=== PATIENT | female | born 1935 | race Caucasian/White ===

== ENCOUNTER → 2016-08-09 | Outpatient (CLI) | payer BC ==
[~2016-08-09] MED LIST: ASCA500 PO; ASPI81TA28 PO; CALCTAB5 PO; DOCU-94 PO; FMR25 PO; GLC500 PO; HYDR-5688 PO; LIRA18IN SC; MULT-506 PO; OMEP40CA41 PO; SIMV20TA2 PO; VSC/10 PO; ZOLP5TAB6 PO; oxybutynin PO
--- NOTE | 2016-08-09 14:29 | DIAGNOSTIC IMAGING REPORT ---
LEFT FOREARM 2 VIEWS ROUTINE CLINICAL HISTORY: M25.532 Wrist pain, acute, left pain COMPARISON: None. DISCUSSION: Evidence for nondisplaced fracture distal radius. All remaining osseous structures show mild degenerative change but otherwise unremarkable. There is no evidence for soft tissue swelling. IMPRESSION: Nondisplaced linear fracture distal radius. Electronically signed by: Braulio Barrow M.D. 08/09/2016 2:28 PM Dictated Date/Time: 08/09/2016 2:27 PM
--- NOTE | 2016-08-09 14:41 | DIAGNOSTIC IMAGING REPORT ---
LEFT WRIST MIN 3 VIEWS ROUTINE CLINICAL HISTORY: Left wrist pain following fall. COMPARISON: None FINDINGS: There is a mildly displaced comminuted distal left radial fracture with intra-articular extension. No additional fractures are identified on this exam. There is severe osteoarthritis of the left first carpometacarpal joint with extensive osteophytosis. IMPRESSION: Comminuted, mildly displaced distal left radial fracture with intra-articular extension. Electronically signed by: Jimi Joseph M.D. 08/09/2016 2:40 PM Dictated Date/Time: 08/09/2016 2:36 PM
== END | disposition home or self-care (01) ==
LOC: C.RAD1850 14:11
PROVIDERS: ATTEND Physician Assistant
DX: S52.502A Unspecified fracture of the lower end of left radius, initial encounter for closed fracture (principal); X58.XXXA Exposure to other specified factors, initial encounter

== ENCOUNTER → 2016-08-26 | Outpatient (CLI) | payer BC ==
[2016-08-26 09:45] LABS: BASO % 0.6 %; BASO ABS # 0.04 K/uL (0-0.2); COMPLETE YES; EOS % 2.7 %; HEMATOCRIT 37.7 % (37-47); IG% 0.3 %; LYMPH % 15.7 %; LYMPH ABS # 1.04 K/uL (1.2-3.4); MEAN CELL VOLUME 91.7 fL (80-100); MEAN CORPUSCULAR HEMOGLOBIN 31.1 pg (25-34); MONO % 8.4 %; NEUT % 72.3 %; PLATELET COUNT 227 K/uL (130-400); RED BLOOD COUNT 4.11 M/uL (4.2-5.4); WHITE BLOOD COUNT 6.64 K/uL (4.8-10.8)
[2016-08-26 10:08] LABS: ESTIMATED AVERAGE GLUCOSE 131 mg/dl; HA1C FLAG Normal (Normal)
[2016-08-26 10:13] LABS: ALB/GLOB RATIO 1.1 (0.9-2); ALKALINE PHOSPHATASE 96 U/L (45-117); ALT/SGPT 33 U/L (12-78); AST/SGOT 30 U/L (15-37); BLOOD UREA NITROGEN 11 mg/dl (7-18); BUN/CREATININE RATIO 12.7 (10-20); CALCIUM 8.8 mg/dl (8.5-10.1); CARBON DIOXIDE 28 mmol/L (21-32); CHLORIDE 105 mmol/L (98-107); CREATININE 0.89 mg/dl (0.60-1.20); GLUCOSE 97 mg/dl (70-99); POTASSIUM 4.1 mmol/L (3.5-5.1); SODIUM 139 mmol/L (136-145)
== END | disposition home or self-care (01) ==
LOC: C.LAB 07:14
PROVIDERS: ATTEND Internal Medicine
DX: E11.9 Type 2 diabetes mellitus without complications (principal); I10 Essential (primary) hypertension; E78.5 Hyperlipidemia, unspecified; C50.919 Malignant neoplasm of unspecified site of unspecified female breast

== ENCOUNTER → 2016-09-13 | Outpatient (CLI) | payer BC | END | disposition home or self-care (01) | LOC: C.PAPS 16:21 | PROVIDERS: ATTEND Obstetrics & Gynecology | DX: Z01.419 Encounter for gynecological examination (general) (routine) without abnormal findings (principal) ==

== ENCOUNTER → 2016-10-08 | Outpatient (CLI) | payer BC | END | disposition home or self-care (01) | LOC: C.CTS 08:03 | PROVIDERS: ATTEND Orthopaedic Surgery | DX: S46.011A Strain of muscle(s) and tendon(s) of the rotator cuff of right shoulder, initial encounter (principal); X58.XXXA Exposure to other specified factors, initial encounter ==

== ENCOUNTER 2016-11-05 07:44 | Inpatient (IN) | payer BC, OTHER ==
--- NOTE | 2016-10-08 09:09 | PAT Medication Instructions ---
Service Date Oct 08, 2016. Current Home Medication List Aspirin (Aspirin Ec), 81 MG PO 4XWK Calcium (Caltrate), 600 MG PO QAM Docusate Sodium (Colace), 1 CAP PO HS Letrozole (Femara), 2.5 MG PO HS Metformin HCl (Metformin HCl), 1 TAB PO BID Multivitamin (Multivitamin), 1 TAB PO QAM Simvastatin (Zocor), 10 MG PO QPM Zolpidem Tartrate (Zolpidem Tartrate), 1 TAB PO HS PRN for Insomnia [oxybutynin], 5 MG PO BID Medication Instructions For Your Scheduled Surgery - Hold the following medications 48 hours prior to surgery: Metformin HCl (Metformin HCl), 1 TAB PO BID - Hold the following medications the morning of surgery: Calcium (Caltrate), 600 MG PO QAM Multivitamin (Multivitamin), 1 TAB PO QAM - Take the following medications the morning of surgery with a sip of water OTHERWISE NOTHING TO EAT OR DRINK AFTER MIDNIGHT: [oxybutynin], 5 MG PO BID - Take the following medications as scheduled the night before surgery: [oxybutynin], 5 MG PO BID Docusate Sodium (Colace), 1 CAP PO HS Letrozole (Femara), 2.5 MG PO HS Simvastatin (Zocor), 10 MG PO QPM Aspirin (Aspirin Ec), 81 MG PO 4XWK Zolpidem Tartrate (Zolpidem Tartrate), 1 TAB PO HS PRN for Insomnia If you have any questions please call us at [phone] or [phone] or [phone]
[2016-10-08 09:51] LABS: BASO % 1.3 %; BASO ABS # 0.06 K/uL (0-0.2); COMPLETE YES; EOS % 3.6 %; HEMATOCRIT 38.6 % (37-47); IG% 0.2 %; LYMPH ABS # 1.09 K/uL (1.2-3.4); MEAN CELL VOLUME 92.3 fL (80-100); MEAN CORPUSCULAR HEMOGLOBIN 31.1 pg (25-34); MEAN CORPUSCULAR HGB CONC 33.7 g/dl (32-36); MEAN PLATELET VOLUME 9.5 fL (7.4-10.4); MONO % 12.4 %; NEUT % 59.5 %; PLATELET COUNT 210 K/uL (130-400); RED BLOOD COUNT 4.18 M/uL (4.2-5.4); WHITE BLOOD COUNT 4.74 K/uL (4.8-10.8)
[2016-10-08 09:55] LABS: URINE APPEARANCE CLEAR (CLEAR); URINE BILIRUBIN NEG (NEG); URINE COLOR YELLOW; URINE NITRITE NEG (NEG); URINE PH 7.5 (4.5-7.5); URINE SPECIFIC GRAVITY 1.016 (1.000-1.030); UROBILINOGEN NEG (NEG)
[2016-10-08 10:04] LABS: PROTHROMBIN TIME (PATIENT) 10.4 SECONDS (9.0-12.0)
[2016-10-08 10:11] LABS: MANUAL MICROSCOPIC REQUIRED? NO; REVIEW REQ? NO
--- NOTE | 2016-10-08 10:14 | DIAGNOSTIC IMAGING REPORT ---
CHEST PREADMISSION(PA/LAT) CLINICAL HISTORY: PAT preoperative evaluation COMPARISON STUDY: No previous studies for comparison. FINDINGS: The bones soft tissues and hemidiaphragms are normal. The cardiomediastinal silhouette is normal. The lungs are clear. The pulmonary vasculature is normal. IMPRESSION: Negative chest. Electronically signed by: Braulio Barrow M.D. 10/08/2016 10:13 AM Dictated Date/Time: 10/08/2016 9:58 AM
[2016-10-08 10:38] LABS: BUN/CREATININE RATIO 16.1 (10-20); CALCIUM 10.1 mg/dl (8.5-10.1); POTASSIUM 4.5 mmol/L (3.5-5.1)
--- NOTE | 2016-11-04 15:32 | HISTORY & PHYSICAL EXAMINATION ---
DATE OF ADMISSION: 10/08/2016 CHIEF COMPLAINT: Rotator cuff arthropathy of the right shoulder. HISTORY OF PRESENT ILLNESS: Lorne is a pleasant 81-year-old female who has been dealing with chronic right shoulder pain. She has been having pain for the past several years. Recently, she sustained a fall where her shoulders feel that it got much worse. She now have been used her left arm more often and she needs to use her left arm to elevate her right arm. She is at the point where she is having hard time sleeping at night and doing simple daily activities. After deep discussions in our office about conservative treatment versus arthroplasty, her and her family wanted to proceed with arthroplasty. PAST MEDICAL HISTORY: Significant for non-insulin dependent diabetes, breast cancer and diverticulitis and tachycardia. MEDICATIONS: Include aspirin 81 mg daily, Caltrate 600 mg daily, Colace 100 mg at night, Femara 2.5 mg at night, metformin 500 mg twice a day, daily multivitamin, Zocor 10 mg daily, and Ambien as needed for sleep and oxybutynin 5 mg twice a day. PAST SURGICAL HISTORY: Significant for a left total knee arthroplasty, lumbar surgery, bilateral breast surgery, splenectomy and tonsillectomy. ALLERGIES: OXYCONTIN AND ULTRAM. FAMILY HISTORY: Noncontributory. SOCIAL HISTORY: She is . She rarely drinks. She remains active. REVIEW OF SYSTEMS: She complains of right shoulder pain and weakness. All other pertinent review of systems is negative. PHYSICAL EXAMINATION: GENERAL: She is awake, alert and oriented x3. She is in no apparent distress. She is very pleasant. HEENT: Pupils are equal, round and reactive to light. Extraocular motion intact. Oral mucosa is pink and moist. HEART: Regular rate per radial pulse. LUNGS: Marlee symmetrically bilaterally with no audible breath sounds. ABDOMEN: Soft, nontender, nondistended. MUSCULOSKELETAL: On physical examination of the shoulder, she has decreased range of motion about 120 degrees of forward elevation and 100 degrees of abduction. She has 4/5 muscle strength with full can testing and 4/5 muscle strength with external rotation. She has a lot of crepitus through range of motion. Passively, I can get her slightly further than her active range of motion. She has a negative belly press test. IMAGING DATA: X-rays of the shoulder do show slightly superiorly migrated humeral head with advanced wear of the glenoid. There is joint space narrowing and osteophyte formation. IMPRESSION: Rotator cuff arthropathy of the right shoulder. PLAN: Given her level of arthritis and the deformity of her glenoid along with her suspicion for possible rotator cuff tear, she has elected to proceed with a reverse right shoulder arthroplasty. She understands all the risks, benefits, alternatives to the procedure. She has already had her Biomet CT scan for the signature system. We will proceed with a comprehensive total shoulder arthroplasty and postoperatively, she will be kept overnight for postoperative medical management.
[~2016-11-05] VITALS: Ht 152.4 cm; Wt 70.1 kg
[2016-11-05] VITALS (13 sets, daily range): BP systolic 123–173; BP diastolic 70–82; PULSE 52–81; TEMP 34.2–36.5; O2SAT 93–99; Ht 152.4 cm; Wt 70.1 kg
[2016-11-05] MEDS: TRANEXAMIC ACID INJ 1,000 MG in SODIUM CHLORIDE 0.9% 100ML 100 ML IV SCH ×2 (06:30→08:16)
--- NOTE | 2016-11-05 06:44 | History & Physical Bridge Note ---
H&P Re-Evaluation Bridge Note: I have examined the patient, reviewed the History & Physical and in the interval since the performance of the History & Physical I have noted the following changes of clinical significance: No changes noted
[~2016-11-05 07:44] MED LIST changes: +ACETAMINOPHEN 500 MG TAB PO SCH; -ASCA500 PO; +CEFAZOLIN 2000 MG/60 ML D5W 60 ML IV SCH; +DEXAMETHASONE SOD INJ 4 MG/ML VIAL ONE; +FAMOTIDINE 20 MG TAB PO SCH; +FENTANYL CITRATE INJ 50 MCG/1 ML 2 ML VIAL ONE; +GABAPENTIN 300 MG CAP PO SCH; +GLYCOPYRROLATE INJ 0.2 MG/ML VIAL ONE; -HYDR-5688 PO; +LACTATED RINGER'S 1000ML 1,000 ML IV SCH; +LACTATED RINGER'S 1000ML IV SCH; +LIDOCAINE HCL 2% 2 ML VIAL (20MG/ML) ONE; -LIRA18IN SC; +MIDAZOLAM HCL 1 MG/ML 2ML VIAL ONE; +NEOSTIGMINE METHYLSULFATE 5 MG/5 ML SYR ONE; -OMEP40CA41 PO; +ONDANSETRON INJ 2 MG/ML 2 ML VIAL ONE; +PROPOFOL IV EMULSION 10 MG/ML 20 ML VIAL IV ONE; +ROCURONIUM BROMIDE 10 MG/ML 5 ML VIAL ONE; +ROPIVACAINE 5MG/ML 30 ML 150 MG, BUPIVACAINE/EPINEPHR 0.5% MPF 30 ML, KETOROLAC TROMETH... INFIL SCH; -VSC/10 PO
[2016-11-05] MEDS ORDERED: ATROPINE SULFATE 0.1 MG/ML 5ML SYR IV PRN (08:15)
[2016-11-05] MEDS ORDERED: SCOPOLAMINE 1.5 MG TDSY TD ONE ×2 (08:15→08:17)
[2016-11-05] MEDS ORDERED: HYDROmorphone INJ 1 MG/ML SYR IV PRN (08:15)
[2016-11-05] MEDS ORDERED: ONDANSETRON INJ 2 MG/ML 2 ML VIAL IV PRN ×2 (08:15→11:45)
[2016-11-05] MEDS ORDERED: EpHEDrine SULFATE INJ 50 MG/ML AMP IV PRN (08:15)
[2016-11-05] MEDS ORDERED: FENTANYL CITRATE INJ 50 MCG/1 ML 2 ML VIAL IV PRN (08:15)
[2016-11-05] MEDS ORDERED: ROPIVACAINE 0.5% 5 MG/ML 30 ML VIAL ONE (08:27)
[2016-11-05] MEDS ORDERED: BACITRACIN 50000 UNIT VIAL ONE (09:38)
[2016-11-05] MEDS ORDERED: ORTHO JOINT ANESTHETIC ONE (09:38)
[2016-11-05] MEDS ORDERED: EpHEDrine SULFATE 50MG/5ML SYR ONE (10:14)
[2016-11-05] MEDS ORDERED: PHENYLEPHRINE 100MCG/ML 5ML SYR ONE (10:14)
[2016-11-05] MEDS ORDERED: PHENYLEPHRINE HCL INJ 10 MG/ML VIAL ONE (10:14)
--- NOTE | 2016-11-05 11:42 | [facility] Post Operative Brief Note ---
Immediate Operative Summary Operative Date Nov 05, 2016. Pre-Operative Diagnosis Rotator cuff arthropathy of the right shoulder Post-Operative Diagnosis Rotator cuff arthropathy of the right shoulder Procedure(s) Performed Right reverse total shoulder Surgeon Dr. Henderson Medical Interpreter Surgeon(s) Farzad Blue PA-C Estimated Blood Loss 350CC Findings as above Specimens A. Right humeral head Complication(s) None Disposition Recovery Room / PACU
[2016-11-05] MEDS ORDERED: MAGNESIUM HYDROXIDE SUSP 30 ML UDC PO PRN (11:45)
[2016-11-05] MEDS ORDERED: MoRPHine SULFATE 2 MG/ML CARP IV PRN (11:45)
[2016-11-05] MEDS ORDERED: HYDROCODONE/ACETAMOPHEN 5/325MG TAB PO PRN (11:45)
[2016-11-05] MEDS ORDERED: SOD PHOSPHATE/SOD BIPHOSPHATE ENEMA 132 ML BTL PR PRN (11:45)
[2016-11-05] MEDS ORDERED: BISACODYL 10 MG SUPP PR PRN (11:45)
[2016-11-05] MEDS ORDERED: METOCLOPRAMIDE HCL INJ 5 MG/ML 2 ML VIAL IV PRN (11:45)
[2016-11-05] MEDS ORDERED: ZOLPIDEM TARTRATE 5 MG TAB PO PRN (11:45)
[2016-11-05] MEDS ORDERED: KETOROLAC TROMETHAMINE 30 MG/ML VIAL IV. SCH (12:00)
--- NOTE | 2016-11-05 12:27 | DIAGNOSTIC IMAGING REPORT ---
RIGHT SHOULDER MIN 2 VIEWS ROUTINE CLINICAL HISTORY: Status post right shoulder surgery. COMPARISON: Right shoulder radiographs October 06, [address] of the right shoulder October 08, 2016. FINDINGS: Alignment of the right shoulder arthroplasty is anatomic. There is a surgical drain. There is no fracture or unexpected radiopaque foreign body. IMPRESSION: Expected findings following right shoulder arthroplasty. Electronically signed by: Jimi Joseph M.D. 11/05/2016 12:26 PM Dictated Date/Time: 11/05/2016 12:25 PM
--- NOTE | 2016-11-05 12:30 | Anesthesiology Progress Note ---
Anesthesia Post Op Note Date & Time Nov 05, 2016 at 12:30 Vital Signs Pain Intensity: 0 Vital Signs Past 12 Hours Date Time Temp Pulse Resp B/P (MAP) Pulse Ox O2 Delivery O2 Flow Rate FiO2 11/05/16 12:20 36.4 86 18 134/66 95 Nasal Cannula 2 11/05/16 12:10 86 16 143/68 96 Mask 10 11/05/16 12:00 90 18 139/64 97 Mask 10 11/05/16 11:50 36.2 97 14 144/68 99 Mask 10 11/05/16 09:15 55 16 144/61 (88) 100 Mask 10 11/05/16 09:04 51 16 144/61 (88) 99 Mask 10 11/05/16 06:52 36.4 55 20 173/75 97 Room Air Notes Mental Status: alert / awake / arousable, participated in evaluation Pt Amnestic to Procedure: Yes Nausea / Vomiting: adequately controlled Pain: adequately controlled Airway Patency, RR, SpO2: stable & adequate BP & HR: stable & adequate Hydration State: stable & adequate Anesthetic Complications: no major complications apparent
[2016-11-05] MEDS ORDERED: GLUCOSE 40% GEL 15 GM TUBE PO PRN (13:30)
[2016-11-05] MEDS ORDERED: GLUCAGON FOR INJ 1 MG VIAL SQ PRN (13:30)
[2016-11-05] MEDS ORDERED: GLUCOSE 10 TABS/TUBE PO PRN (13:30)
[2016-11-05] MEDS ORDERED: DEXTROSE 50% 50 ML SYR IV PRN (13:30)
[2016-11-05] MEDS ORDERED: PHARMACY GLYCEMIC MGMT CONSULT PRN (13:43)
[2016-11-05] MEDS: POTASSIUM CHLORIDE INJ 10 MEQ in SODIUM CHLORIDE 0.9% 1000ML 1,000 ML IV SCH ×2 (13:52→23:51)
--- NOTE | 2016-11-05 13:54 | Pharmacy Progress Note ---
Glycemic Control Intl Consult Date of Service Nov 05, 2016. Scope Glycemic Pharmacist consulted by Dr Henderson on 11/05/16 for glycemic control and to write orders per [facility] inpatient glycemic control protocol Objective Weight (Kilograms): 70.100 Accuchecks BSG (last 24hrs): Test 11/05/16 07:27 11/05/16 11:56 Bedside Glucose 118 mg/dl (70-90) 145 mg/dl (70-90) HbA1c 6.2% on 08/26/16 Recent Pertinent Medications Outpatient Anti-diabetic Regimen: * Metformin 500mg PO BIDM Risk Factors for Insulin Resistance: * Steroids pre/intraop * Recent Surgery * Diet Assessment & Plan ASSESSMENT: * 81yo T2DM female with adequate outpatient control per recent A1c 6.2% on * Pt is maintained on oral antidiabetic agents as an outpatient * Oral agents are not recommended for inpatient use d/t drug interactions, changing PO intake, and difficulty titrating for acute hyper/hypoglycemia. ADA recommends re-initiating outpatient oral agents 1-2 days prior to discharge if/ when appropriate if they were held on admission. * Will hold oral agents for admission and utilize SQ basal bolus insulin regimen which is the recommended regimen for inpatient glycemic control. * Will initiate weight based insulin dosing for insulin valentino patient and titrate based on BSG trends. * Basal insulin most likely not needed based on degree of outpatient control * ADA & AACE recommend a goal blood sugar range 140-180 mg/dl for the majority of critically ill & non-critically ill patients. However, more stringent targets may be selected in individual cases. Will utilize more stringent goal of 110-140mg/dl based on patient age & comorbidities. Additionally, tighter glycemic control is warranted to facilitate wound/infection healing. PLAN FOR INPATIENT GLYCEMIC CONTROL: * Holding outpatient oral diabetes medications * Resume {metformin 500mg PO BIDM} POD#1 with dinner provided PO intake is adequate and renal function at baseline * Basal insulin * None needed. Will start low dose for persistent hyperglycemia {BSG > 180} * Bolus insulin * NovoLog per scale ACHS or Q6hrs while NPO * Goal Range: Low 110 mg/dL - High 140 mg/dL * Correction Factor: 35 mg/dL/unit * Nutritional / Prandial insulin per carb ratio of 1 unit per 11 grams CHO consumed * D/C carb ratio when metformin is started 11/06 PM * Please note that the plan above was derived based on current level of insulin resistance and hospital stress. These recommendations are appropriate for inpatient admission only. Plan of care upon discharge will need to be reassessed to avoid potential outpatient hypo/hyperglycemia. Thank you.
--- NOTE | 2016-11-05 16:27 | OPERATIVE REPORT ---
DATE OF OPERATION: 11/05/2016 PREOPERATIVE DIAGNOSIS: Rotator cuff arthropathy of the right shoulder. POSTOPERATIVE DIAGNOSIS: Same. PROCEDURE: Reverse right total shoulder arthroplasty. SURGEON: Dr. Farzad Henderson. JEWEL BLOCKER AND SAWYER: Farzad Davila PA-C, whose assistance was necessary for positioning of the arm and helping with instrumentation. ANESTHESIA: General with a right interscalene nerve block. COMPLICATIONS: None. CONDITION: Stable to PACU. IMPLANTS USED: I used a Biomet comprehensive reverse right total shoulder arthroplasty with a size 25-mm mini baseplate, a 20-mm central screw, a 20-mm superior locking screw and a 35-mm inferior and posterior locking screw with a 36-mm standard eccentric glenosphere, a 12-mm pressfit mini stem, a standard humeral tray and a +3 retentive humeral bearing. No cement was used during the case. INDICATIONS: Lorne is a pleasant 81-year-old female who presented to my office with chronic right shoulder pain. X-rays and clinical examination were diagnostic for osteoarthritis of the right shoulder. She had very poor function of her rotator cuff as well and had sustained a recent fall. She elected to undergo a reverse right shoulder arthroplasty. DESCRIPTION OF PROCEDURE: On 11/05/2016, she arrived at [facility] for the above procedure. She was seen in the preoperative holding area and the operative extremity was identified and signed. She was given a preoperative antibiotic and a right interscalene nerve block. She was taken back to the operating room, laid on the table in supine position and put under general anesthesia. She was then put into the beachchair position. The right shoulder was prepped and draped in the sterile fashion. Time-out was done and the patient and operative extremity was properly identified. A deltopectoral approach was used. Dissection was taken down through the fascia and the anterior shoulder was exposed. The long head of the biceps tendon was tenodesed to the upper border of the pec major and the subscapularis was tenotomized off the lesser tuberosity. The proximal humerus was exposed. Sequential reaming up to a size 12 reamer was done. Off that reamer, a proximal humeral resection guide was placed and the proximal humerus was resected at 135 degrees of inclination and 20 degrees of retroversion. The glenoid was then exposed. Time was spent doing a complete circumferential capsular and labral release. There was significant posterior glenoid erosion. A Biomet signature guide was then snapped on to the anterior aspect of the glenoid and a guide pin was placed in reverse shoulder arthroplasty hole. A 25-mm mini base plate reamer was then used to eccentrically ream the glenoid. The final 25-mm base plate was then impacted into place. A 20-mm central screw was placed. I did not get an excellent purchase. A single superior, inferior and posterior locking screws were then placed. A 36-mm eccentric glenosphere was then impacted into place. The proximal humerus was then exposed. Sequential broaching up to a size 12 broach was done. Off that broach, several different humeral bearings were trialed and a +3 retentive seemed to be the best fit. The trials were removed. The final humeral stem was impacted into place followed by the +3 retentive humeral bearing and standard humeral tray. The shoulder was reduced, brought through a full range of motion and felt to be stable. The surrounding soft tissues were injected with 100 mL of an orthopedic pain control cocktail. The wound was then irrigated with 3 liters of normal saline solution with bacitracin. The subscapularis was tenodesed back to the lesser tuberosity with transosseous FiberWire sutures and [id number] sutures. Hemostasis was controlled and a drain was placed. The skin was then closed with 2-0 Vicryl, 3-0 V-Loc suture and a Prineo dressing. She was then placed in a soft dressing and regular arm sling. She was then extubated, transferred [facility] and taken to the postanesthesia care unit in stable condition. She tolerated the procedure well. I attest to the content of the Intraoperative Record and any orders documented therein. Any exception s are noted below.
[2016-11-05] MEDS: KETOROLAC TROMETHAMINE 15 MG/ML VIAL IV. SCH ×2 (17:00→22:41)
[2016-11-05] MEDS: CEFAZOLIN IV 1,000 MG in DEXTROSE 5% 50ML 50 ML IV SCH (18:17)
[2016-11-05] MEDS: INSULIN ASPART 100 UNITS/ML 3 ML PEN SC SCH ×2 (19:26→20:56)
[2016-11-05] MEDS: OXYBUTYNIN CHLORIDE 5 MG TAB PO SCH (20:42)
[2016-11-05] MEDS ORDERED: SIMVASTATIN 10 MG TAB PO SCH (21:00)
[2016-11-05] MEDS ORDERED: LETROZOLE 2.5 MG TAB PO SCH (21:00)
[2016-11-05] MEDS ORDERED: DOCUSATE SODIUM 100 MG CAP PO SCH ×2 (21:00)
[2016-11-05] MEDS ORDERED: SENNA 8.6 MG TAB PO SCH (21:00)
[2016-11-06] MEDS: CEFAZOLIN IV 1,000 MG in DEXTROSE 5% 50ML 50 ML IV SCH (01:46)
[2016-11-06 03:56] VITALS: BP 136/74; PULSE 60; TEMP 36.6; O2SAT 94
[2016-11-06] MEDS: KETOROLAC TROMETHAMINE 15 MG/ML VIAL IV. SCH ×2 (04:32→10:43)
[2016-11-06 06:28] LABS: HEMATOCRIT 30.6 % (37-47); MEAN CELL VOLUME 91.6 fL (80-100); MEAN CORPUSCULAR HEMOGLOBIN 30.2 pg (25-34); MEAN PLATELET VOLUME 9.5 fL (7.4-10.4); PLATELET COUNT 160 K/uL (130-400); RED BLOOD COUNT 3.34 M/uL (4.2-5.4); WHITE BLOOD COUNT 11.11 K/uL (4.8-10.8)
[2016-11-06 07:02] VITALS: BP 126/60; PULSE 57; TEMP 36.6; O2SAT 95
[2016-11-06 07:06] LABS: CALCIUM 8.3 mg/dl (8.5-10.1); CREATININE 0.87 mg/dl (0.60-1.20); POTASSIUM 4.4 mmol/L (3.5-5.1)
[2016-11-06] MEDS: INSULIN ASPART 100 UNITS/ML 3 ML PEN SC SCH (08:00)
[2016-11-06] MEDS ORDERED: MULTIVITAMIN TAB PO SCH ×2 (09:00)
[2016-11-06] MEDS ORDERED: CALCIUM CARBONATE 1250MG TAB PO SCH (09:00)
[2016-11-06] MEDS ORDERED: PANTOprazole SOD 40 MG TAB PO SCH (09:00)
[2016-11-06] MEDS ORDERED: ASPIRIN 81 MG ECTAB PO SCH (09:00)
[2016-11-06] MEDS ORDERED: HYDR-5688 PO (09:05)
--- NOTE | 2016-11-06 09:06 | Discharge Instructions ---
Discharge Instructions Date of Service Nov 06, 2016. 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 Instructions / Follow-Up Instructions / Follow-Up Activity and Therapy Recommendations: * Wear your sling for 3 weeks, unless otherwise instructed. You may remove your sling to shower and to dress, but otherwise, you should be in your sling at all times, including while sleeping * The shoulder replacement is very stable and you can use your hand while in the sling * Physical Therapy should start about 3-5 days from your day of surgery. Therapy will last about 8-12 weeks * You were shown a series of exercises in the hospital. Do these exercises daily including the exercises you were shown in physical therapy. Medications: * Narcotic You will likely be sent home from the hospital with a prescription for the narcotic pain medication that worked best throughout your stay. * Other medications may be prescribed for specific circumstances. If you have any questions, please call the office at . * Resume previous home medications unless otherwise instructed Dressing Care: You will likely have a Prineo dressing covering your incision. This looks like a glued on clear mesh dressing. Do not remove this dressing until you follow- up in my office in 2-3 weeks. Its pretty hard to peel it off. You may leave the Prineo dressing uncovered or cover it if it is draining a little bit. No further dressing care is required Showering: You may shower 3 days from the day of surgery. Leave the Prineo dressing intact and let the soapy shower water run over it. Do not scrub or soak the dressing or the incision. Things To Watch For: * Drainage from the incision site that occurs more than one week after your surgery. * Increased redness at the incision site. * Fever above 102 degrees Fahrenheit. * Unusual chest pain or shortness of breath. * Call [facility] at with any of the above problems Follow-Up Visit: Follow-up with Dr. Henderson 2-3 weeks after your day of surgery. An appointment was probably scheduled when you signed-up for surgery in the office. If you have any questions call Office Instructions: More detailed instructions as well as Frequently Asked Questions were provided in a folder by our office when you signed-up for surgery. Please review these instructions when you get home. If you have any further questions or concerns, please feel free to call the office at [phone] Current Hospital Diet Patient's current hospital diet: Diabetes Type 2 Diet Discharge Diet Recommended Diet: Diabetes Type 2 Diet Procedures Procedures Performed: Right reverse total shoulder Pending Studies Studies pending at discharge: no Laboratory Results Hemoglobin A1c Test 08/26/16 07:40 Range/Units Estimated Average Glucose 131 mg/dl Hemoglobin A1c 6.2 H 4.5-5.6 % Medical Emergencies . Who to Call and When: Medical Emergencies: If at any time you feel your situation is an emergency, please call 911 immediately. . Non-Emergent Contact Non-Emergency issues call your: Surgeon Call Non-Emergent contact if: wound has increased drainage, wound has increased redness . "Provider Documentation" section prepared by Farzad Henderson. . VTE Core Measure Inpt VTE Proph given/why not?: Treatment not indicated
[2016-11-06] MEDS: OXYBUTYNIN CHLORIDE 5 MG TAB PO SCH (09:14)
[2016-11-06] MEDS: POTASSIUM CHLORIDE INJ 10 MEQ in SODIUM CHLORIDE 0.9% 1000ML 1,000 ML IV SCH (09:17)
--- NOTE | 2016-11-06 09:32 | PROGRESS NOTE ---
DATE: 11/06/2016 DATE: 11/06/2016 CHIEF COMPLAINT: Status post right reverse shoulder arthroplasty postop day #1. HISTORY OF PRESENT ILLNESS: Lorne is a pleasant 81-year-old female who underwent a reverse right shoulder arthroplasty yesterday. She is having very little pain today. Unfortunately, she is having inability to extend her wrist and her fingers. The block seems to have fully worn off. She has no other complaints. PHYSICAL EXAMINATION: RIGHT SHOULDER: The dressing is clean and dry and the drain is to suction. She is wearing her sling as instructed. She has inability to extend her wrist and inability to extend her fingers on the right side. It appears to be a radial nerve palsy. LABORATORY DATA: Show an H&H of 10.1 and 30.6. Her glucose is 81. Her vital signs are all stable on room air and she is voiding on her own. X-rays postoperatively of the right shoulder show the prosthesis to be in anatomic alignment without any evidence of fracture, dislocation or loosening. IMPRESSION: 1. Status post reverse right shoulder arthroplasty postop day #1. 2. Radial nerve palsy. PLAN: My biggest concern is certainly the radial nerve palsy. I explained to her that everything went fine with the procedure, that the radial nerve is simply stretched from the retractors. These palsies are usually transient and her motion should return; however, I am unsure if it will return within days or if it is going to take months. She understands that. I am going to order her a cock-up wrist splint and I talked to the therapist as well. We will go ahead and discharge her to home. She can continue physical therapy on her shoulder.
--- NOTE | 2016-11-06 10:08 | DISCHARGE SUMMARY ---
DATE OF DISCHARGE: 11/06/2016. DISCHARGE DIAGNOSIS: Rotator cuff arthropathy of the right shoulder with postoperative radial nerve palsy. PROCEDURE: Reverse right total shoulder arthroplasty on 11/05/[address] Farzad Henderson. DISCHARGE INSTRUCTIONS: 1. [place] 5/325 every 6 hours as needed for pain. 2. Aspirin 81 mg daily. 3. Caltrate 600 mg in the morning. 4. Colace 100 mg daily. 5. Femara 2.5 mg at night. 6. Metformin 500 mg twice a day. 7. Zocor 10 mg daily. 8. Ambien 5 mg at night. 9. Oxybutynin 5 mg twice a day. 10. Right arm sling for 3 weeks. 11. Right wrist splint as needed for radial nerve palsy. 12. Follow up with Dr. Henderson in 2 weeks. 13. Call the office of Dr. Henderson with any questions or concerns. HOSPITAL COURSE: Lorne is a pleasant 81-year-old female who presented to my office with chronic right shoulder pain. X-rays and clinical examination were diagnostic for primary osteoarthritis of the right shoulder with insufficient rotator cuff. After failing conservative treatment, she elected to undergo a reverse right shoulder arthroplasty. On 11/05/2016 she arrived at [facility] and underwent a reverse right shoulder arthroplasty without complications. There were no complications during the case; however, due to retractor placement she developed a postoperative radial nerve palsy. On postop day #1, her pain was well controlled. Her H&H was stable at 10.1 and 30.6. She was able to participate well with physical therapy. We gave her cock-up wrist splint to her right wrist and explained to her that these nerve palsies are usually transient and it will take either days or months to go away. I will follow her closely in the office. She was stable for discharge to home.
[2016-11-06 10:56] VITALS: BP 126/60; PULSE 57; TEMP 36.6; O2SAT 95
[2016-11-06] MEDS ORDERED: INSULIN ASPART 100 UNITS/ML 3 ML PEN SC SCH (17:15)
[2016-11-06] MEDS ORDERED: METFORMIN HCL 500 MG TAB PO SCH (17:45)
== END 2016-11-06 11:59 | disposition home or self-care (01) | DRG 483 ==
LOC: C.ACU 07:44 → C.3E 11:47 → ENRESERV 12:28
PROVIDERS: ADMIT Orthopaedic Surgery; ATTEND Orthopaedic Surgery
PROC: 0RRJ00Z Replacement of Right Shoulder Joint with Reverse Ball and Socket Synthetic Substitute, Open Approach (ICD-10-PCS; principal; 2016-11-05 09:30)
DX: M19.011 Primary osteoarthritis, right shoulder (principal); M96.89 Other intraoperative and postprocedural complications and disorders of the musculoskeletal system; G56.31 Lesion of radial nerve, right upper limb; Y81.3 Surgical instruments, materials and general- and plastic-surgery devices (including sutures) associated with adverse incidents; Y83.8 Other surgical procedures as the cause of abnormal reaction of the patient, or of later complication, without mention of misadventure at the time of the procedure; Y92.234 Operating room of hospital as the place of occurrence of the external cause; E78.5 Hyperlipidemia, unspecified; E11.9 Type 2 diabetes mellitus without complications; C50.919 Malignant neoplasm of unspecified site of unspecified female breast; Z98.1 Arthrodesis status; Z96.652 Presence of left artificial knee joint; Z87.891 Personal history of nicotine dependence; Z79.82 Long term (current) use of aspirin; Z79.84 Long term (current) use of oral hypoglycemic drugs; Z79.811 Long term (current) use of aromatase inhibitors; Z79.899 Other long term (current) drug therapy

== ENCOUNTER → 2016-12-28 | Outpatient (CLI) | payer BC ==
[~2016-12-28] MED LIST changes: -ACETAMINOPHEN 500 MG TAB PO SCH; -CEFAZOLIN 2000 MG/60 ML D5W 60 ML IV SCH; -DEXAMETHASONE SOD INJ 4 MG/ML VIAL ONE; -FAMOTIDINE 20 MG TAB PO SCH; -FENTANYL CITRATE INJ 50 MCG/1 ML 2 ML VIAL ONE; -GABAPENTIN 300 MG CAP PO SCH; -GLYCOPYRROLATE INJ 0.2 MG/ML VIAL ONE; +HYDR-5688 PO; -LACTATED RINGER'S 1000ML 1,000 ML IV SCH; -LACTATED RINGER'S 1000ML IV SCH; -LIDOCAINE HCL 2% 2 ML VIAL (20MG/ML) ONE; -MIDAZOLAM HCL 1 MG/ML 2ML VIAL ONE; -NEOSTIGMINE METHYLSULFATE 5 MG/5 ML SYR ONE; -ONDANSETRON INJ 2 MG/ML 2 ML VIAL ONE; -PROPOFOL IV EMULSION 10 MG/ML 20 ML VIAL IV ONE; -ROCURONIUM BROMIDE 10 MG/ML 5 ML VIAL ONE; -ROPIVACAINE 5MG/ML 30 ML 150 MG, BUPIVACAINE/EPINEPHR 0.5% MPF 30 ML, KETOROLAC TROMETH... INFIL SCH
[2016-12-28 17:42] LABS: BASO % 0.8 %; BASO ABS # 0.05 K/uL (0-0.2); COMPLETE YES; EOS % 2.3 %; HEMATOCRIT 37.6 % (37-47); IG% 0.2 %; LYMPH % 25.5 %; LYMPH ABS # 1.55 K/uL (1.2-3.4); MEAN CELL VOLUME 92.4 fL (80-100); MEAN CORPUSCULAR HEMOGLOBIN 31.2 pg (25-34); MEAN CORPUSCULAR HGB CONC 33.8 g/dl (32-36); MEAN PLATELET VOLUME 10.2 fL (7.4-10.4); MONO % 10.2 %; PLATELET COUNT 261 K/uL (130-400); RED BLOOD COUNT 4.07 M/uL (4.2-5.4); WHITE BLOOD COUNT 6.09 K/uL (4.8-10.8)
[2016-12-28 18:08] LABS: ALT/SGPT 25 U/L (12-78); AST/SGOT 27 U/L (15-37); BLOOD UREA NITROGEN 17 mg/dl (7-18); BUN/CREATININE RATIO 18.7 (10-20); CALCIUM 9.5 mg/dl (8.5-10.1); CARBON DIOXIDE 30 mmol/L (21-32); CHLORIDE 102 mmol/L (98-107); GLUCOSE 94 mg/dl (70-99); POTASSIUM 4.1 mmol/L (3.5-5.1); SODIUM 138 mmol/L (136-145)
[2016-12-28 18:11] LABS: ALB/GLOB RATIO 1.1 (0.9-2); ALKALINE PHOSPHATASE 111 U/L (45-117)
== END | disposition home or self-care (01) ==
LOC: C.LABBC 15:00
PROVIDERS: ATTEND Internal Medicine Hematology & Oncology
DX: C50.812 Malignant neoplasm of overlapping sites of left female breast (principal)

== ENCOUNTER → 2017-03-02 | Outpatient (CLI) | payer BC ==
[2017-03-02 10:41] LABS: CHOLESTEROL/HDL RATIO 1.6
== END | disposition home or self-care (01) ==
LOC: C.LAB 08:38
PROVIDERS: ATTEND Internal Medicine
DX: D64.9 Anemia, unspecified (principal); E78.5 Hyperlipidemia, unspecified; S52.502A Unspecified fracture of the lower end of left radius, initial encounter for closed fracture; X58.XXXA Exposure to other specified factors, initial encounter

== ENCOUNTER → 2017-03-14 | Outpatient (CLI) | payer BC ==
[2017-03-15 07:45] LABS: ESTIMATED AVERAGE GLUCOSE 137 mg/dl; HA1C FLAG Normal (Normal)
== END | disposition home or self-care (01) ==
LOC: C.LAB1850 14:34
PROVIDERS: ATTEND Internal Medicine
DX: E11.9 Type 2 diabetes mellitus without complications (principal)

== ENCOUNTER → 2017-08-10 | Outpatient (CLI) | payer BC ==
[~2017-08-10] MED LIST changes: +ASCO1CAP3 PO; +ASPCH81X PO; -ASPI81TA28 PO; +CALC600T9 PO; -CALCTAB5 PO; +DTR/5 PO; +GLC/500 PO; -GLC500 PO; -HYDR-5688 PO; +SIMV10TA2 PO; -SIMV20TA2 PO; +ZOLP5TAB PO; -ZOLP5TAB6 PO; -oxybutynin PO
[2017-08-10 16:50] LABS: BASO % 0.7 %; BASO ABS # 0.04 K/uL (0-0.2); HEMATOCRIT 38.6 % (37-47); HEMOGLOBIN 13.3 g/dL (12.0-16.0); IG# 0.01 K/uL (0.00-0.02); LYMPH % 24.2 %; LYMPH ABS # 1.45 K/uL (1.2-3.4); MEAN CELL VOLUME 90.6 fL (80-100); MEAN CORPUSCULAR HEMOGLOBIN 31.2 pg (25-34); MEAN CORPUSCULAR HGB CONC 34.5 g/dl (32-36); MEAN PLATELET VOLUME 10.4 fL (7.4-10.4); MONO % 9.5 %; MONO ABS # 0.57 K/uL (0.11-0.59); NEUT % 60.4 %; NEUT ABS # 3.63 K/uL (1.4-6.5); PLATELET COUNT 202 K/uL (130-400); RED CELL DISTRIBUTION WIDTH CV 14.7 % (11.5-14.5)
[2017-08-10 17:01] LABS: ALBUMIN 3.9 gm/dl (3.4-5.0); ALT/SGPT 29 U/L (12-78); AST/SGOT 32 U/L (15-37); BLOOD UREA NITROGEN 19 mg/dl (7-18); CALCIUM 9.6 mg/dl (8.5-10.1); CARBON DIOXIDE 31 mmol/L (21-32); CREATININE 0.98 mg/dl (0.60-1.20); GLUCOSE 87 mg/dl (70-99); POTASSIUM 4.2 mmol/L (3.5-5.1); SODIUM 138 mmol/L (136-145)
[2017-08-10 17:04] LABS: ALKALINE PHOSPHATASE 109 U/L (45-117); TOTAL PROTEIN 7.6 gm/dl (6.4-8.2)
== END | disposition home or self-care (01) ==
LOC: C.LABBC 14:53
PROVIDERS: ATTEND Internal Medicine Hematology & Oncology
DX: C50.812 Malignant neoplasm of overlapping sites of left female breast (principal)

== ENCOUNTER → 2017-08-17 | Day surgery (SDC) | payer BC ==
[~2017-08-17] VITALS: Ht 152.4 cm; Wt 70.5 kg
[~2017-08-17] MED LIST changes: +ATROPINE SULFATE 0.1 MG/ML 5ML SYR IV PRN; +EpHEDrine SULFATE INJ 50 MG/ML AMP IV PRN; +LIDOCAINE HCL 2% 2 ML VIAL (20MG/ML) ONE; +PROPOFOL IV EMULSION 10 MG/ML 20 ML VIAL ONE; +SODIUM CHLORIDE 0.9% 500ML 500 ML IV ONE
[2017-08-17 10:25] VITALS: Ht 152.4 cm; Wt 70.5 kg
--- NOTE | 2017-08-17 10:51 | Endo History and Physical ---
History & Physical Date of Service: August 17, 2017. Chief Complaint: HX POLYPS Referring Physician: DR. GAUTAM History of Present Illness 82 yo CF who presents for colonoscopy secondary to history of colon polyps. Past Medical History Diabetes, Arthritis, High Cholesterol, Hypertension Past Surgical History Hx Cardiac Surgery: No Hx Internal Defibrillator: No Hx Pacemaker: No Hx Abdominal Surgery: Yes (TUBAL LIGATION) Hx Post-Op Nausea and Vomiting: Yes Hx Cancer Surgery: Yes (DOUBLE MASTECTOMY) Hx Thoracic Surgery: No Hx Orthopedic: Yes (LUMBAR LAMINECTOMY/FUSION, LEFT TKA, RT TSA ) Hx Urinary Tract Surgery: No Family History Colon CA Social History Smoking Status: Former Smoker Hx Substance Use: No Hx Alcohol Use: Yes (RARELY) Allergies Coded Allergies: Oxycodone (Verified Adverse Reaction, Intermediate, hallucinations, ) Tramadol (Verified Adverse Reaction, Intermediate, gi upset, 08/05/17) Current Medications Reported Home Medications Medications Dose Route/Sig Max Daily Dose Days Date Category Ambien (Zolpidem Tartrate) 5 Mg Tab 5 Mg PO HS PRN 08/05/17 Reported Ditropan (Oxybutynin Chloride) 5 Mg Tab 5 Mg PO BID 08/05/17 Reported Aspirin Chewable (Aspirin) 81 Mg Chew 81 Mg PO 4XWK 08/05/17 Reported Zocor (Simvastatin) 10 Mg Tab 10 Mg PO QPM 08/05/17 Reported Glucophage (Metformin Hcl) 500 Mg Tab 500 Mg PO BID 08/05/17 Reported Colace (Docusate Sodium) 100 Mg Cap 1 Cap PO BID PRN 08/05/17 Reported Calcium + D (Calcium Carbonate-Vitamin D) 1 Tab Tab 1 Tab PO QAM 08/05/17 Reported Vitamin C (Ascorbic Acid) 500 Mg Cap 1 Cap PO QAM 08/05/17 Reported Femara (Letrozole) 2.5 Mg Tab 2.5 Mg PO HS 10/08/16 Reported Multivitamin (Multivitamins) Tab 1 Tab PO QAM 09/19/07 Reported Vital Signs Weight (Kilograms): 70.45 Height (Feet): 5 Height (Inches): 0 Date Time Temp Pulse Resp B/P (MAP) Pulse Ox O2 Delivery O2 Flow Rate FiO2 08/17/17 10:33 36.5 59 18 146/79 (101) 97 Room Air Physical Exam General Appearance: WD/WN, no apparent distress Respiratory/Chest: Auscultation: breath sounds normal Cardiovascular: Heart Auscultation: RRR Abdomen: Bowel Sounds: normal Inspection & Palpation: soft, non-distended, no tenderness, guarding & rebound Assessment and Plan Assessment: 82 yo CF who presents for colonoscopy secondary to history of colon polyps. Plan: Proceed with colonoscopy.
--- NOTE | 2017-08-17 11:56 | GI REPORT ---
Patient Name: Lorne Borjas Procedure Date: 08/17/2017 10:54 AM Date of : 1935 Admit Type: Outpatient Age: 82 Gender: Female Attending MD: Humphrey Moses DO Procedure: Colonoscopy Providers: Humphrey Moses DO Referring MD: Chele Rojas Indications: High risk colon cancer surveillance: Personal history of colonic polyps Medicines: Monitored Anesthesia Care Complications: No immediate complications. Estimated Blood Loss: Estimated blood loss: none. Procedure: Pre-Anesthesia Assessment: - Prior to the procedure, a History and Physical was performed, and patient medications and allergies were reviewed. The patient's tolerance of previous anesthesia was also reviewed. The risks and benefits of the procedure and the sedation options and risks were discussed with the patient. All questions were answered, and informed consent was obtained. Prior Anticoagulants: The patient has taken aspirin, last dose was 7 days prior to procedure. ASA Grade Assessment: III - A patient with severe systemic disease. After reviewing the risks and benefits, the patient was deemed in satisfactory condition to undergo the procedure. After I obtained informed consent, the scope was passed under direct vision. Throughout the procedure, the patient's blood pressure, pulse, and oxygen saturations were monitored continuously. The scope was introduced through the anus and advanced to the terminal ileum. The colonoscopy was performed without difficulty. The patient tolerated the procedure well. The quality of the bowel preparation was good. The terminal ileum, ileocecal valve, appendiceal orifice, and rectum were photographed. Findings: The perianal and digital rectal examinations were normal. Two sessile polyps were found in the ascending colon. The polyps were 3 to 4 mm in size. These polyps were removed with a cold biopsy forceps. Resection and retrieval were complete. Two sessile polyps were found in the transverse colon. The polyps were 5 to 7 mm in size. These polyps were removed with a hot snare. Resection and retrieval were complete. Multiple small-mouthed diverticula were found in the entire colon. Non-bleeding internal hemorrhoids were found during retroflexion. The hemorrhoids were small. Impression: - Two 3 to 4 mm polyps in the ascending colon, removed with a cold biopsy forceps. Resected and retrieved. - Two 5 to 7 mm polyps in the transverse colon, removed with a hot snare. Resected and retrieved. - Diverticulosis in the entire examined colon. - Non-bleeding internal hemorrhoids. Recommendation: - Resume previous diet. - Continue present medications. - Repeat colonoscopy for surveillance based on pathology results. - Return to primary care physician as previously scheduled. Humphrey Moses, DO 08/17/2017 11:56:13 AM This report has been signed electronically. Note Initiated On: 08/17/2017 10:54 AM Number of Addenda: 0 I attest to the content of the Intraoperative Record and orders documented therein, exceptions below {[id number]}
--- NOTE | 2017-08-17 12:00 | Discharge Instructions ---
Endoscopy Patient Instructions Date / Procedure(s) Performed August 17, 2017. Colonoscopy Allergy Information Coded Allergies: Oxycodone (Verified Adverse Reaction, Intermediate, hallucinations, ) Tramadol (Verified Adverse Reaction, Intermediate, gi upset, 08/05/17) Discharge Date / Findings August 17, 2017. Colon polyps Diverticulosis Internal hemorrhoids Medication Instructions OK to resume all medications today as prescribed Reported Home Medications Medications Dose Route/Sig Max Daily Dose Days Date Category Ambien (Zolpidem Tartrate) 5 Mg Tab 5 Mg PO HS PRN 08/05/17 Reported Ditropan (Oxybutynin Chloride) 5 Mg Tab 5 Mg PO BID 08/05/17 Reported Aspirin Chewable (Aspirin) 81 Mg Chew 81 Mg PO 4XWK 08/05/17 Reported Zocor (Simvastatin) 10 Mg Tab 10 Mg PO QPM 08/05/17 Reported Glucophage (Metformin Hcl) 500 Mg Tab 500 Mg PO BID 08/05/17 Reported Colace (Docusate Sodium) 100 Mg Cap 1 Cap PO BID PRN 08/05/17 Reported Calcium + D (Calcium Carbonate-Vitamin D) 1 Tab Tab 1 Tab PO QAM 08/05/17 Reported Vitamin C (Ascorbic Acid) 500 Mg Cap 1 Cap PO QAM 08/05/17 Reported Femara (Letrozole) 2.5 Mg Tab 2.5 Mg PO HS 10/08/16 Reported Multivitamin (Multivitamins) Tab 1 Tab PO QAM 09/19/07 Reported Provider Instructions Activity Restrictions - No exercising or heavy lifting for 24 hours. - Do not drink alcohol the day of the procedure. - Do not drive a car or operate machinery until the day after the procedure. - Do not make any important decisions or sign important papers in 24 hours after the procedure. Following Day: - Return to full activity which may include returning to work/school. Diet Start your diet with liquids and light foods (jello, soup, juice, toast). Then eat your usual diet if not nauseated. Treatment For Common After Affects For mild abdominal pain, bloating, or excessive gas: - Rest - Eat lightly - Lie on right side Follow-Up Information Follow-up with DR. GAUTAM as scheduled Anesthesia Information What You Should Know You have had a procedure that required some medicine to reduce anxiety and discomfort. This treatment is called moderate sedation. After receiving the treatment, you may be sleepy, but you will be able to breathe on your own. The effects of the treatment may last for several hours. Follow these instructions along with Activity/Diet recommendations noted above: * Do NOT do anything where dizziness or clumsiness would be dangerous. * Rest quietly at home today, then you can be up and about tomorrow. * Have a responsible person stay with you the rest of today. * You may have had an I.V. today. If so, you may take the dressing off later today. Recommendations Call your doctor if: * Trouble breathing * Continuous vomiting for more than 24 hours * Temperature above 101 degrees * Severe abdominal pain or bloating * Pain not relieved by pain medicine ordered * There is increased drainage or redness from any incision * A large amount of rectal bleeding greater than 2-3 tablespoons. (If you had a polyp/s removed or have hemorrhoids, a small amount of blood - from the rectum is to be expected.) * You have any unanswered questions or concerns. IN THE EVENT OF A SERIOUS EMERGENCY, GO TO THE NEAREST EMERGENCY ROOM Your discharge instructions were prepared by provider Humphrey Moses. Patient Instructions Signature Page Lorne Borjas Patient (or Guardian) Signature/Date: I have read and understand the instructions given to me by my caregivers. Caregiver/RN/Doctor Signature/Date: The above-named patient and/or guardian has received patient instructions on this date. + Original Patient Signature Page (only) stays with chart. Please make copy for patient.
--- NOTE | 2017-08-17 12:05 | Anesthesiology Progress Note ---
Anesthesia Post Op Note Date & Time August 17, 2017 at 12:05 Vital Signs Pain Intensity: 0 Vital Signs Past 12 Hours Date Time Temp Pulse Resp B/P (MAP) Pulse Ox O2 Delivery O2 Flow Rate FiO2 08/17/17 11:54 36.7 87 16 101/50 (67) 97 Room Air 08/17/17 10:33 36.5 59 18 146/79 (101) 97 Room Air Notes Mental Status: alert / awake / arousable, participated in evaluation Pt Amnestic to Procedure: Yes Nausea / Vomiting: adequately controlled Pain: adequately controlled Airway Patency, RR, SpO2: stable & adequate BP & HR: stable & adequate Hydration State: stable & adequate Anesthetic Complications: no major complications apparent
[2017-08-17 12:25] VITALS: BP 132/67; PULSE 59; O2SAT 95
== END | disposition home or self-care (01) ==
LOC: C.GI 10:07
PROVIDERS: ATTEND Internal Medicine
DX: Z12.11 Encounter for screening for malignant neoplasm of colon (principal); D12.2 Benign neoplasm of ascending colon; D12.3 Benign neoplasm of transverse colon; K57.30 Diverticulosis of large intestine without perforation or abscess without bleeding; K64.8 Other hemorrhoids; E11.9 Type 2 diabetes mellitus without complications; Z86.010 Personal history of colon polyps; Z88.5 Allergy status to narcotic agent; Z85.3 Personal history of malignant neoplasm of breast; Z90.13 Acquired absence of bilateral breasts and nipples; Z87.891 Personal history of nicotine dependence; Z96.652 Presence of left artificial knee joint; Z98.1 Arthrodesis status

== ENCOUNTER → 2017-08-23 | Outpatient (CLI) | payer BC ==
[~2017-08-23] MED LIST changes: -ATROPINE SULFATE 0.1 MG/ML 5ML SYR IV PRN; -EpHEDrine SULFATE INJ 50 MG/ML AMP IV PRN; -LIDOCAINE HCL 2% 2 ML VIAL (20MG/ML) ONE; -PROPOFOL IV EMULSION 10 MG/ML 20 ML VIAL ONE; -SODIUM CHLORIDE 0.9% 500ML 500 ML IV ONE
[2017-08-23 12:03] LABS: HEMOGLOBIN A1C 6.2 % (4.5-5.6)
[2017-08-23 14:16] LABS: CREATININE RANDOM URINE 47.9 mg/dl
== END | disposition home or self-care (01) ==
LOC: C.LABBC 08:05
PROVIDERS: ATTEND Internal Medicine
DX: E11.9 Type 2 diabetes mellitus without complications (principal); I10 Essential (primary) hypertension; E78.5 Hyperlipidemia, unspecified

== ENCOUNTER 2020-11-04 06:56 | Observation (INO) ==
--- NOTE | 2020-10-30 15:44 | Anesthesiology Consultation ---
Date of Service October 30, 2020 Assessment & Plan (1) Encounter for pre-operative examination: - COVID screening: Per assessment on 10/30: Travel screen negative, no known COVID-19 positive contacts or current COVID-19 related symptoms. Patient vaccinated. Surgeon arranging preop COVID testing (done 10/30; [place])- results pending. - Check BSG AM DOS - Preop testing: No preop EKG done. Most recent available EKG done 10/08/16 was unremarkable. Will update AM DOS. Chart Review Chart Review: Acceptable Risk for Surgery (pending preop EKG AM DOS) and Patient NOT seen in Pre Admission Testing History Surgery Operation Date: 11/04/20 10:00 Proposed Procedures p Open Ventral Hernia Repair - Willy Rao MD, FACS Height/Weight Height: 4 ft 11 in Weight: 65.771 kg Allergies Allergy/AdvReac Type Severity Reaction Status Date / Time codeine AdvReac Severe Hallucinati Verified 10/30/20 15:44 ons hydrocodone [From Vicodin] AdvReac Severe Hallucinati Verified 10/30/20 15:44 ons oxycodone AdvReac Intermediate Hallucinati Verified 10/30/20 15:44 ons tramadol AdvReac Intermediate GI upset Verified 10/30/20 15:44 Medications Home Medications Medication Instructions Recorded Confirmed Last Taken docusate sodium 100 mg tablet 100 mg PO HS tab 11/28/18 10/30/20 Unknown multivitamin (Multiple Vitamins) 1 tab PO DAILY 11/28/18 10/30/20 Unknown calcium carbonate 600 mg calcium 600 mg PO DAILY tab 02/14/19 10/30/20 Unknown (1,500 mg) tablet letrozole 2.5 mg tablet 2.5 mg PO QAM tab 02/14/19 10/30/20 Unknown blood-glucose meter (OneTouch #1 ea 02/15/19 10/30/20 Unknown UltraMini) blood sugar diagnostic (OneTouch #200 ea 10/11/19 10/30/20 Unknown Ultra Blue Test Strip) aspirin 81 mg tablet,delayed 81 mg PO 4XWK tab 03/11/20 10/30/20 Unknown release (Adult Low Dose Aspirin) alendronate 70 mg tablet 70 mg PO Q7D #12 tab 08/18/20 10/30/20 Unknown metformin 500 mg tablet 500 mg PO BID #180 tab 08/18/20 10/30/20 Unknown donepezil 5 mg tablet (Aricept) 5 mg PO QAM 10/30/20 10/30/20 Unknown oxybutynin chloride 15 mg 15 mg PO HS 10/30/20 10/30/20 Unknown tablet,extended release 24 hr simvastatin 10 mg tablet 10 mg PO HS 10/30/20 10/30/20 Unknown Past Medical History Medical History Breast cancer Diabetes mellitus type 2 in nonobese (09/04/11) NIDDM Gastric ulcer Per remote records, pt denies History of anemia History of breast cancer lobular hyperplasia with atypical and fibrocystic changes History of chemotherapy History of memory loss Hyperlipidemia Hypertension Incisional hernia reason for upcoming hernia repair Mild cognitive impairment Past Family History Family History Sister Breast cancer Sister Breast cancer Aunt Colorectal cancer Family/Other Colorectal cancer Mother Diabetes Dementia Hypertension Father Leukemia Other No family history of adverse response to anesthesia Denies family history of Ovarian cancer Prostate cancer Myocardial infarction Past Surgical History Surgical History History of back surgery lumbar fusion History of bilateral tubal ligation History of cardiac cath 2000 ([facility]) > no stents History of colonoscopy History of left knee replacement History of right shoulder replacement Hx of tonsillectomy 1954 S/P breast biopsy S/P cataract surgery both eyes S/P foot surgery right S/P mastectomy, bilateral (~2016) simple mastectomy S/P tonsillectomy Social History Smoking Status: Former smoker tobacco type: cigarettes Do You Dip or Chew Tobacco: No Smoking End Date: Hx Alcohol Use: Yes Alcohol type: wine alcohol intake frequency: a few times a month Hx Substance Use: No substance use type: does not use Lab Results Anesthesia Preop Results Results Anesthesia Widget: WBC 5.67 K/uL (4.8-10.8) 10/30/20 Hgb 13.1 g/dL (12.0-16.0) 10/30/20 Hct 39.6 % (37-47) 10/30/20 Plt 239 K/uL (130-400) 10/30/20 Na 137 mmol/L (136-145) 10/30/20 K 4.1 mmol/L (3.5-5.1) 10/30/20 Cl 105 mmol/L (98-107) 10/30/20 CO2 27 mmol/L (21-32) 10/30/20 BUN 21 mg/dl (7-18) H 10/30/20 Creat 0.92 mg/dl (0.6-1.2) 10/30/20 Glucose Level 82 mg/dl (70-99) 10/30/20 Testing Electrocardiogram Date: 10/08/16 SB at 55bpm. Otherwise normal ECG. Echocardiogram Date: 09/01/20 EF 55 to 60%. No regional motion abnormality. Mild biatrial dilation. No significant valvular disease. Grade 2 diastolic dysfunction.
[~2020-11-04 06:56] MED LIST changes: -ASCO1CAP3 PO; -ASPCH81X PO; -CALC600T9 PO; -DOCU-94 PO; -DTR/5 PO; -FMR25 PO; -GLC/500 PO; +LR 15ML/HR IV SCH; -MULT-506 PO; -SIMV10TA2 PO; -ZOLP5TAB PO; +ceFAZolin 2000MG 2,000 MG/15 ML SYR IV SCH
[2020-11-04] MEDS ORDERED: fentaNYL citrate 100 MCG/2 ML VIAL ONE ×2 (07:23→08:06)
[2020-11-04] MEDS ORDERED: ONDANSETRON INJ 2 MG/ML 2 ML VIAL ONE ×2 (07:23→09:14)
[2020-11-04] MEDS ORDERED: SUCCINYLCHOLINE 100MG/5ML SYR IV ONE (07:23)
[2020-11-04] MEDS ORDERED: SUCCINYLCHOLINE CHLORIDE 20 MG/ML 10 ML VIAL IV ONE (07:23)
[2020-11-04] MEDS ORDERED: DEXAMETHASONE SOD INJ 4 MG/ML VIAL ONE (07:23)
[2020-11-04] MEDS ORDERED: PROPOFOL IV EMULSION 10 MG/ML 20 ML VIAL IV ONE ×2 (07:23→09:14)
--- NOTE | 2020-11-04 08:28 | History & Physical Bridge Note ---
Date of Service November 04, 2020 History & Physical Bridge Note I have examined the patient, reviewed the History & Physical and in the interval since the performance of the History & Physical I have noted the following changes of clinical significance: no changes noted
[2020-11-04] MEDS ORDERED: ONDANSETRON INJ 2 MG/ML 2 ML VIAL IV PRN ×2 (08:42→11:57)
[2020-11-04] MEDS ORDERED: ePHEDrine sulfate 50 MG/ML AMP IV PRN (08:42)
[2020-11-04] MEDS ORDERED: fentaNYL citrate 100 MCG/2 ML VIAL IV PRN (08:42)
[2020-11-04] MEDS ORDERED: ATROPINE SULFATE 0.1 MG/ML 10ML SYR IV PRN (08:42)
[2020-11-04] MEDS ORDERED: BUPIVACAINE 0.5 % 5 MG/1 ML MPF 30ML VIAL ONE (08:44)
--- NOTE | 2020-11-04 09:02 | Electrocardiogram Report ---
Test Reason : Blood Pressure : / mmHG Vent. Rate : 049 BPM Atrial Rate : 049 BPM P-R Int : 158 ms QRS Dur : 080 ms QT Int : 450 ms P-R-T Axes : 041 003 043 degrees QTc Int : 406 ms Sinus bradycardia Otherwise normal ECG When compared with ECG of 08-OCT-2016 09:31, No significant change was found Confirmed by Fernandez Valencia ([id number]) on 11/04/2020 9:01:45 AM Referred By: Willy Rao Confirmed By:Fernandez Valencia
[2020-11-04] MEDS ORDERED: SUGAMMADEX SODIUM 200 MG/2 ML VIAL IV ONE (09:04)
[2020-11-04] MEDS ORDERED: LIDOCAINE 2% 2 ML VIAL/AMP(20MG/ML) INFIL ONE (09:14)
[2020-11-04] MEDS ORDERED: ROCURONIUM BROMIDE 10 MG/ML 5 ML VIAL IV ONE ×2 (09:14→09:37)
[2020-11-04] MEDS ORDERED: ePHEDrine sulfate 50 MG/ML SYR ONE (09:16)
[2020-11-04] MEDS ORDERED: ACETAMINOPHEN 1,000 MG/100 ML VIAL IV ONE (09:53)
[2020-11-04] MEDS ORDERED: traMADol HCL 50 MG TABLET PO PRN (10:01)
--- NOTE | 2020-11-04 11:35 | Operative Report (OR) ---
DATE OF PROCEDURE: 11/04/2020 NAME OF OPERATION: Incisional hernia repair. PREOPERATIVE DIAGNOSIS: Incisional hernia. POSTOPERATIVE DIAGNOSES: Incisional hernia, incarceration of omentum. STAFF SURGEON: Willy Rao MD. [place]ISSION ANALYST: Esther Garcia PA-C. DESCRIPTION OF PROCEDURE: The patient was brought in the operating room, placed on the operating tab le in supine position. Her abdomen was prepped and draped in the usual fashion. Pneumatic stockings and orogastric tube were placed. A transverse incision was made over the hernia sac. The sac was a pproximately 3-4 cm in diameter. Dissection carried down opening the sac. The sac contained a signi ficant amount of omentum with a very small defect of approximately 1.5 cm. I was unable to reduce th e omentum. Therefore, the part of the omentum was excised. I had to enlarge the defect to reduce th e remaining omentum and then the defect was closed transversely using interrupted #1 Ethibond suture. Subcutaneous tissue reapproximated using 2-0 plain suture, then the skin reapproximated using 4-0 n ylon suture and Steri-Strips. We did use 0.5% plain Marcaine to anesthetize skin and subcutaneous ti ssue. My nursing assistant helped with prepping, draping, repair of the hernia and closure of the wound. Job ID: [id number]
--- NOTE | 2020-11-04 11:37 | Anesthesiology Progress Note ---
Date of Service November 04, 2020 Anesthesia Post Procedure Vital Signs Vital Signs: Temp Pulse Pulse Resp BP BP Pulse Ox 11/04/20 11:15 60 16 142/59 H 95 11/04/20 11:00 64 16 151/62 H 95 11/04/20 10:45 60 16 147/65 H 94 11/04/20 10:35 36.4 C L 60 16 145/70 H 94 11/04/20 10:25 62 16 156/65 H 98 11/04/20 10:15 64 16 167/73 H 97 11/04/20 10:07 36.2 C L 66 16 170/73 H 99 11/04/20 07:41 36.6 C 52 L 18 173/74 H 98 Transfer of Care Handoff Completed per policy Notes Mental Status: alert / awake / arousable and participated in evaluation Patient Amnestic to Procedure: Yes Nausea / Vomiting: adequately controlled Pain: adequately controlled Airway Patency, RR, SpO2: stable & adequate BP & HR: stable & adequate Hydration State: stable & adequate Anesthetic Complications: no major complications apparent and Pt Satisfied with anesthetic care
[2020-11-04] MEDS ORDERED: PROMETHAZINE HCL 12.5 MG in SODIUM CHLORIDE 0.9% 50 ML IV PRN (11:57)
[2020-11-04] MEDS ORDERED: SODIUM CHLORIDE 0.9% 1000ML 1,000 ML IV SCH (11:57)
[2020-11-04] MEDS ORDERED: ACETAMINOPHEN 325 MG TAB PO PRN (11:57)
--- NOTE | 2020-11-04 14:12 | Hospitalist Consultation ---
Date of Consultation November 04, 2020 Assessment & Plan (1) Ventral hernia: s/p Incisional hernia, incarceration of omentum repair with Dr. Rao on 11/04 Pain management/bowel regimen/PT/OT/DVT prophylaxis per primary Has not required anything for pain, up to bathroom voiding already since OR Labs in AM Plans for d/c tomorrow per patient (2) Chronic cerebral ischemia: Follows with Neurology Dementia as well (but appears alert/oriented) -- remains on aricept 5mg daily Also takes ASA 81mg 4x/weekly on Sun, Tues, Thurs, Sat -- not everyday due to increased bruising At her baseline (3) Breast cancer: s/p bilateral mastectomy follows with Dr. Brizuela Continues on letrozole 2.5mg daily (on hold for interaction with anesthesia currently, anticipate resuming tomorrow) (4) Diabetes mellitus type 2 in nonobese: Last A1c 6.4 On metformin 500mg BID [employer] ISS while inpatient Continue to monitor (5) Hyperlipidemia: Simvastatin 10mg daily (6) Hypertension: Hx of -- diet controlled per PCP note BP currently 133/56 AHA diet (7) Urge incontinence of urine: Follows with Urology Continues on Oxybutynin 15mg HS (8) DVT prophylaxis: SCDs Dispo: continued inpatient stay, likely d/c tomorrow per patient Thank you for allowing hospitalist service to participate in the care of Mrs. Borjas. Hospitalist service will chart check in AM/see if remains inpatient. Otherwise, please call with any questions/concerns. Supervising Physician Co-Signing Physician Notes Patient was seen and examined independently I discussed the case with Nadine Pearl PAC I reviewed pertinent past medical social family history and also the plan of care and agree with the plan of care. Patient is recovering well has very little abdominal pain anticipated discharge in 1 day Abdomen is hypoactive bowel sounds appropriately examines for postoperative state for hernia repair due to central abdomen Continuing home meds insulin coverage for diabetes Any exceptions will be noted below History of Present Illness Reason for Consultation: medical management Requesting Physician: Dr Rao Attending Physician: Willy Rao MD, [facility] History of Present Illness 85yo female with PMHx of DMII, HTN, HLD, Breast ca s/p bilateral mastectomy (follows with Dr. Brizuela, on letrozole), BCC, urinary incontinence, and insomnia presented for incisional hernia repair with Dr. Rao. She states she is feeling well following surgery. Pain well controlled and no need for any medications at this time. Has already been up and walked to the bathroom to urinate without issue. Bowel movement this morning before surgery. No fever, chills, chest pain, shortness of breath, abdominal pain, nausea, vomiting or dysuria at this time. Questioned if mesh placed --> while in room supervising provider reviewed operative report to confirm no mesh placed. Per patient and , plans are for discharge tomorrow. Allergies Allergy/AdvReac Type Severity Reaction Status Date / Time codeine AdvReac Severe Hallucinati Verified 11/04/20 07:37 ons hydrocodone [From Vicodin] AdvReac Severe Hallucinati Verified 11/04/20 07:37 ons oxycodone AdvReac Intermediate Hallucinati Verified 11/04/20 07:37 ons tramadol AdvReac Intermediate GI upset Verified 11/04/20 07:37 Home Medications Medication Instructions Recorded Confirmed Type docusate sodium 100 mg tablet 100 mg PO HS tab 11/28/18 11/04/20 History multivitamin (Multiple Vitamins) 1 tab PO DAILY 11/28/18 11/04/20 History calcium carbonate 600 mg calcium 600 mg PO DAILY tab 02/14/19 11/04/20 History (1,500 mg) tablet letrozole 2.5 mg tablet 2.5 mg PO QAM tab 02/14/19 11/04/20 History blood-glucose meter (OneTouch #1 ea 02/15/19 10/30/20 Rx UltraMini) blood sugar diagnostic (OneTouch #200 ea 10/11/19 10/30/20 Rx Ultra Blue Test Strip) aspirin 81 mg tablet,delayed 81 mg PO 4XWK tab 03/11/20 11/04/20 History release (Adult Low Dose Aspirin) alendronate 70 mg tablet 70 mg PO Q7D #12 tab 08/18/20 11/04/20 Rx metformin 500 mg tablet 500 mg PO BID #180 tab 08/18/20 11/04/20 Rx donepezil 5 mg tablet (Aricept) 5 mg PO QAM 10/30/20 11/04/20 History oxybutynin chloride 15 mg 15 mg PO HS 10/30/20 11/04/20 History tablet,extended release 24 hr simvastatin 10 mg tablet 10 mg PO HS 10/30/20 11/04/20 History Patient History Medical History Breast cancer Diabetes mellitus type 2 in nonobese (09/04/11) NIDDM Gastric ulcer Per remote records, pt denies History of anemia History of breast cancer lobular hyperplasia with atypical and fibrocystic changes History of chemotherapy History of memory loss Hyperlipidemia Hypertension Incisional hernia reason for upcoming hernia repair Mild cognitive impairment Surgical History History of back surgery lumbar fusion History of bilateral tubal ligation History of cardiac cath 2000 ([facility]) > no stents History of colonoscopy History of incisional hernia repair (11/04/20) Incisional hernia, incarceration of omentum. Dr. Rao 11/04/2020 History of left knee replacement History of right shoulder replacement Hx of tonsillectomy 1954 S/P breast biopsy S/P cataract surgery both eyes S/P foot surgery right S/P mastectomy, bilateral (~2016) simple mastectomy S/P tonsillectomy Family History Sister Breast cancer Sister Breast cancer Aunt Colorectal cancer Family/Other Colorectal cancer Mother Diabetes Dementia Hypertension Father Leukemia Other No family history of adverse response to anesthesia Denies family history of Ovarian cancer Prostate cancer Myocardial infarction Social History Smoking Status: Former smoker Years Smoked: 20; Smoking End Date: ; Second Hand Exposure: No; Do You Dip or Chew Tobacco: No; Tobacco Cessation Education Requested by Patient: No Hx Alcohol Use: Yes Alcohol type: wine Alcohol Intake Frequency Comment: occassionally Hx Substance Use: No Preferred Language: Greek Communication Ability: Effective Visual Impairment: No Limitations Hearing Ability: Use of Hearing Aid 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 Beliefs That Will Affect Care: None marital status: Current Living Situation: Spouse current occupational status: retired How many Children do You have: 3 Other Information That Helps Us Care for You: No Feels Safe at Home: Yes Safety Concerns: Feels Safe At This Time during the past year weight has: decreased > 10 lbs Physical Activity Frequency: 3-4 Times per Week Physical Activity Frequency Comment: regularly Seatbelt Use: always Assistive Devices: Denture - Lower Assistive Devices Comment: lower partial Review of Systems Review of Systems: All systems reviewed & are unremarkable except as noted in HPI & below Physical Exam Physical Exam: General: WD/WN, NAD ENT: mmm, trachea midline without deviation Breast: s/p b/l mastectomy Resp: CTAB, no w/c/r or accessory muscle use, no cough Cardiac: bradycardia, regular rhythm, no m/r/g GI: +BS, soft, non-tender except ezra-incisional (minor). dressing c/d/i MSK/Neuro: moves all extremities, no focal deficits, CN intact Psych: alert, oriented and pleasant Results & Data Results & Data ([facility]) Vital Signs (Past 12 Hours) Vital Signs Temp Pulse Pulse Resp BP BP Pulse Ox 11/04/20 14:06 36 C L 58 L 16 133/56 L 95 11/04/20 13:17 57 L 16 112/48 L 94 11/04/20 12:47 36.8 C 65 17 120/68 94 11/04/20 12:30 61 16 120/51 L 96 11/04/20 12:15 61 16 143/59 H 96 11/04/20 12:00 36.4 C L 57 L 16 110/75 98 11/04/20 11:45 60 16 132/54 L 94 11/04/20 11:30 61 16 146/53 H 94 11/04/20 11:15 60 16 142/59 H 95 11/04/20 11:00 64 16 151/62 H 95 11/04/20 10:45 60 16 147/65 H 94 11/04/20 10:35 36.4 C L 60 16 145/70 H 94 11/04/20 10:25 62 16 156/65 H 98 11/04/20 10:15 64 16 167/73 H 97 11/04/20 10:07 36.2 C L 66 16 170/73 H 99 11/04/20 07:41 36.6 C 52 L 18 173/74 H 98 Laboratory Results 11/04/20 11/04/20 11/04/20 Range/Units 07:21 07:16 07:16 POC Glucose 111 H (70-99) mg/dl COVID-19 Eval [facility] SARS-CoV-2, RNA, NAAT NEGATIVE (NEGATIVE) PG Care Time/CCT Total # of Minutes Spent Total Time Spent with Patient: Total time spent is greater than 50% in coordination of care (as documented) at patient's floor/unit and/or counseling patient: Coding Level of Care Code 05723 Office/OBS Consult Lvl 3 Diagnoses Ventral hernia K43.9 Urge incontinence of urine N39.41 Chronic cerebral ischemia I67.82 Breast cancer C50.919 Diabetes mellitus type 2 in nonobese E11.9 Hyperlipidemia E78.5 Hypertension I10 DVT prophylaxis Z29.9
[2020-11-04] MEDS ORDERED: GLUCOSE 40% GEL 15 GM TUBE PO PRN (14:34)
[2020-11-04] MEDS ORDERED: CARBOHYDRATES FOR HYPOGLYCEMIA PO PRN (14:34)
[2020-11-04] MEDS ORDERED: GLUCOSE 10 TABS/TUBE PO PRN (14:34)
[2020-11-04] MEDS ORDERED: GLUCAGON FOR INJ 1 MG VIAL SQ PRN (14:34)
[2020-11-04] MEDS ORDERED: DEXTROSE 50% 50 ML SYRINGE IV PRN (14:34)
[2020-11-04] MEDS: INSULIN ASPART 100 UNITS/ML 3 ML PEN SC SCH ×2 (17:42→20:57)
[2020-11-04] MEDS ORDERED: OXYBUTYNIN CHLORIDE XL 5 MG TABCR PO SCH (21:00)
[2020-11-04] MEDS ORDERED: DOCUSATE SODIUM 100 MG CAP PO SCH (21:00)
[2020-11-04] MEDS ORDERED: SIMVASTATIN 10 MG TAB PO SCH (21:00)
[2020-11-05 07:00] LABS: Hematocrit (blood only) 39.2 % (37-47); Hemoglobin 13.2 g/dL (12.0-16.0); Mean Corpuscular Hemoglobin 31.4 pg (25-34); Mean Corpuscular Hgb Conc 33.7 g/dL (32-36); Mean Corpuscular Volume 93.3 fL (80-100); Platelet Count 222 K/uL (130-400); RDW Coefficient of Variation 14.8 % (11.5-14.5); RDW Standard Deviation 50.7 fL (36.4-46.3); White Blood Count 7.68 K/uL (4.8-10.8)
[2020-11-05 07:47] LABS: BUN Creatinine Ratio 16.6 (10-20); Calcium 8.7 mg/dl (8.5-10.1); Creatinine Clr Calc Pharmacy 36.9 ml/min; Est GFR (Non-African American) 56.1 ml/min; Potassium 3.9 mmol/L (3.5-5.1)
[2020-11-05] MEDS: INSULIN ASPART 100 UNITS/ML 3 ML PEN SC SCH (08:41)
--- NOTE | 2020-11-05 08:53 | Discharge Summary (DS) ---
DATE OF DISCHARGE: 11/05/2020 DATE OF ADMISSION: 11/04/2020. PRINCIPAL DIAGNOSIS: Incisional hernia. PROCEDURES: The patient underwent open incisional hernia repair. HISTORY OF PRESENT ILLNESS: The patient is an 85-year-old female with an incarcerated incisional her johnny. She was brought to the operating room on 11/04/2020 where she underwent open incisional hernia repair. She did quite well, but with her age and complexity of the operation, I felt it would be bet ter for her to be observed overnight. She has done well overnight and felt stable for discharge home today. She is being followed by the medical team. We will follow her in the office next week. Job ID: [id number]
[2020-11-05] MEDS ORDERED: CALCIUM CARBONATE 1250MG TAB PO SCH (09:00)
[2020-11-05] MEDS ORDERED: DONEPEZIL HCL 5 MG TAB PO SCH (09:00)
--- NOTE | 2020-11-05 09:06 | Communication Note ---
Date of Service: November 05, 2020 Discussed with surgery this morning. Reviewed labs. Patient doing well. Stable for discharge from medical standpoint.
== END 2020-11-05 11:48 | disposition home or self-care (01) ==
LOC: PACUINP 06:56 → ASU 06:56 → 3N 13:13

== ENCOUNTER 2024-08-03 13:02 | Inpatient (IN) ==
[2024-08-03 13:40] LABS: Basophils # (auto) 0.07 K/uL (0.00-0.20); Basophils % (auto) 1.1 %; Eosinophils # (auto) 0.24 K/uL (0.00-0.50); Eosinophils % (auto) 3.8 %; Hematocrit (blood only) 37.8 % (37.0-47.0); Hemoglobin 12.6 g/dl (12.0-16.0); Immature Granulocytes # (auto) 0.01 K/uL (0.01-0.20); Immature Granulocytes % (auto) 0.2 %; Lymphocytes # (auto) 1.16 K/uL (1.20-3.40); Lymphocytes % (auto) 18.3 %; Mean Corpuscular Hemoglobin 30.6 pg (25.0-34.0); Mean Corpuscular Hgb Conc 33.3 g/dL (32.0-36.0); Mean Corpuscular Volume 91.7 fL (80.0-100.0); Mean Platelet Volume 10.5 fL (9.4-12.4); Monocytes # (auto) 0.52 K/uL (0.11-0.59); Monocytes % (auto) 8.2 %; Neutrophils # (auto) 4.34 K/uL (1.40-6.50); Neutrophils % (auto) 68.4 %; Platelet Count 209 K/uL (130-400); RDW Coefficient of Variation 14.7 % (11.5-14.5); RDW Standard Deviation 49.4 fL (36.4-46.3); Red Blood Count 4.12 M/uL (4.20-5.40); White Blood Count 6.34 K/ul (4.8-10.8)
[2024-08-03 14:02] LABS: Alanine Aminotransferase 17 U/L (7-52); Albumin Globulin Ratio 1.4 (0.9-2); Albumin Level 4.3 gm/dl (3.4-5.0); Alkaline Phosphatase 82 U/L (34-104); Anion Gap 5 (3-11); Bilirubin,Total 0.6 mg/dl (0.2-1.0); Blood Urea Nitrogen 33 mg/dl (6-23); Calcium 9.3 mg/dl (8.6-10.3); Carbon Dioxide 32 mmol/L (21-32); Chloride 102 mmol/L (98-107); Globulin 3.1 gm/dl (2.5-4.0); Glucose 179 mg/dl (70-99(Fasting)); Sodium 139 mmol/L (136-145); Total Protein 7.4 gm/dl (6.0-8.3)
[2024-08-03] MEDS: SODIUM CHLORIDE 0.9% 500 ML IV ONE ×2 (14:07→15:58)
--- NOTE | 2024-08-03 14:10 | CT Scan Report ---
CT head/brain wo con CLINICAL HISTORY: 89 years-old Female with confusion. Acutely altered mental status with confusion TECHNIQUE: Multiple axial CT images of the head were obtained without contrast. A dose lowering tech nique was utilized adhering to the principles of ALARA. CT DOSE: 580.53 mGy.cm COMPARISON: None. FINDINGS: No acute intracranial hemorrhage, midline shift, intracranial mass, hydrocephalus, territorial ischem ia or abnormal extra-axial collection. Involutional changes with chronic microvascular ischemic disea se. Senescent calcifications of the basal ganglia. The calvarium is intact. Partially the sella. The paranasal sinuses, mastoid air cells, and middle ea r cavities are clear. IMPRESSION: No acute intracranial abnormality. ACT 112: Negative or not required by law. The above report was generated using voice recognition software. It may contain grammatical, syntax o r spelling errors. Electronically signed by: Slick Lerner M.D. 08/03/2024 2:08 PM
--- NOTE | 2024-08-03 14:24 | Emergency Department Note ---
Impression & Plan Acute confusion, Acute dehydration, Acute UTI ED Provider Note NAME: CHARLY DAVIS AGE: 89 SEX: F : 1935 ARRIVES VIA: Walk-In INFORMANT: [Patient][] ED PROVIDER(S): [Pritesh Manzanares MD] CHIEF COMPLAINT: Confusion HISTORY OF PRESENT ILLNESS: The patient is an 89-year-old female who has been having some issues with confusion and concentration however, it was thought secondary to depression. The patient today was more confused than baseline. She had a hard time getting out her words, she had a hard time thinking about what to do and how to do it. She felt overall unwell. There has been no vomiting or diarrhea, no fever, she does not have any chest pain. No urinary complaints. She is concerned about potential dehydration. As per her , she has fallen twice in the last 6 weeks. She states that she falls because of clumsiness. PMHx/PSHx/Social Hx: See Below PHYSICAL EXAM: GENERAL: Patient is in no acute distress. HEENT: No acute trauma, normocephalic atraumatic, mucous membranes dry, no nasal congestion. NECK: No stridor, no adenopathy, no meningismus, trachea is midline. LUNGS: Clear to auscultation bilaterally, no wheeze, no rhonchi, breath sounds equal. HEART: Without murmurs gallops or rubs, regular rate and rhythm. ABDOMEN: Soft, nontender, no peritonitis. EXTREMITIES: No cyanosis, full range of motion of all the joints without pain or difficulty. There is an older appearing contusion to the right proximal calf/leg. NEUROLOGIC: Awake and alert, no acute motor or sensory deficits, no focal weakness. SKIN: No jaundice, no diaphoresis. DIFFERENTIAL DIAGNOSIS: Dehydration, dementia, intracranial bleeding, UTI, electrolyte imbalance, among others. EMERGENCY DEPARTMENT PROCEDURES: MEDICAL DECISION MAKING: There is no leukocytosis or concerning anemia. There is a normal platelet count. VBG did not show CO2 retention. No renal failure or significant electrolyte abnormality. No concerning liver enzyme elevation. Ammonia level was not elevated. Patient appeared to be in a euthyroid state. Urinalysis does suggest infection. Chest x-ray did not show pneumonia or CHF. Brain CT showed no acute bleed or mass effect. ECG did not show any acute ischemic change. On exam, there were no focal neurologic findings, the patient appeared dehydrated. She was not toxic or febrile. Patient was given 1 L of IV saline for hydration. She received IV ceftriaxone for the UTI. Patient is 89, she is weak, she has fallen, she feels more confused and was not herself today as per . She has a UTI. I do think the urinary infection coupled with some dehydration is responsible for her mental status change. Given her situation, given her confusion, hospitalization is warranted. I did speak with the patient, I spoke with her , I talked with case management. The on-call hospitalist was consulted. Prior/Outside records/notes reviewed: None ECG per my interpretation: Indication was weakness. The ECG shows a normal sinus rhythm with some LVH. The rate is 65. There is no acute ST elevation, no PVCs. The QTc is 424. Continuous Cardiac Monitoring per my interpretation: An order was placed for continuous cardiac monitoring. The monitor shows a rate of 71 with normal sinus rhythm. Imaging/x-ray results per my interpretation: Chest x-ray shows cardiomegaly, no focal infiltrate or CHF. Chronic Medical/Social conditions affecting care: Advanced age. Care/Management discussed with: Case management, the on-call hospitalist. 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 Brachial plexopathy (Acute) Asymptomatic menopausal state (Acute) Asymmetric SNHL (sensorineural hearing loss) (Acute) Mild cognitive impairment Chronic cerebral ischemia Arthritis Diabetes History of incisional hernia repair (11/04/20) Incisional hernia, incarceration of omentum. Dr. Rao 11/04/2020 Memory loss Medical History DVT prophylaxis Encounter for pre-operative examination History of chemotherapy History of memory loss History of anemia History of breast cancer lobular hyperplasia with atypical and fibrocystic changes Excessive cerumen in right ear canal Gastric ulcer Per remote records, pt denies Incisional hernia reason for upcoming hernia repair Surgical History History of cardiac cath History of bilateral tubal ligation History of colonoscopy History of right shoulder replacement History of left knee replacement Hx of tonsillectomy S/P tonsillectomy S/P mastectomy, bilateral (~2016) S/P breast biopsy S/P foot surgery S/P cataract surgery History of back surgery Family History Sister Breast cancer Sister Breast cancer Aunt Colorectal cancer Family/Other Colorectal cancer Mother Diabetes Dementia Hypertension Father Leukemia Other No family history of adverse response to anesthesia Denies family history of Ovarian cancer Prostate cancer Myocardial infarction Social History Smoking Status: Never smoker Second Hand Exposure: No; Do You Dip or Chew Tobacco: No; Hx Alcohol Use: Yes Alcohol type: wine Alcohol Intake Frequency Comment: occassionally Hx Substance Use: No Preferred Language: Filipino Communication Ability: Effective Visual Impairment: No Limitations Hearing Ability: Use of Hearing Aid Bucket Pusher Required: No Beliefs That Will Affect Care: None marital status: Current Living Situation: Spouse current occupational status: retired How many Children do You have: 3 Feels Safe at Home: Yes Diet: regular during the past year weight has: decreased > 10 lbs Physical Activity Frequency: 3-4 Times per Week Physical Activity Frequency Comment: regularly Seatbelt Use: always Assistive Devices: Denture - Lower Allergies Allergies Allergy/AdvReac Type Severity Reaction Status Date / Time codeine AdvReac Severe Hallucinati Verified 08/03/24 15:39 ons hydrocodone [From Vicodin] AdvReac Severe Hallucinati Verified 08/03/24 15:39 ons oxycodone AdvReac Severe Hallucinati Verified 08/03/24 15:39 ons tramadol AdvReac Intermediate GI upset Verified 08/03/24 15:39 Home Meds Home Medications Medication Instructions Recorded Confirmed multivitamin (Multiple Vitamins 1 tab PO DAILY 11/28/18 08/03/24 tablet) letrozole 2.5 mg tablet 2.5 mg PO QAM 02/14/19 08/03/24 ascorbate calcium (vitamin C) 500 500 mg PO DAILY 05/31/22 08/03/24 mg tablet cholecalciferol (vitamin D3) 25 25 mcg PO DAILY 11/21/23 08/03/24 mcg (1,000 unit) capsule Previous Rx's Medication Instructions Recorded blood-glucose meter (OneTouch #1 ea 02/15/19 UltraMini kit) blood sugar diagnostic #200 ea 11/24/20 amlodipine 2.5 mg tablet 2.5 mg PO DAILY #90 tabs 05/31/22 metformin 500 mg tablet 500 mg PO BID #180 tabs 08/18/22 simvastatin 10 mg tablet 10 mg PO HS #90 tabs 08/18/22 vibegron 75 mg tablet (Gemtesa) 75 mg PO DAILY #90 tabs 01/27/24 escitalopram oxalate 10 mg tablet 10 mg PO HS 90 days #90 tabs 02/16/24 Results & Data (ED) Vital Signs Vital Signs - 24 hr 08/03/24 13:07 08/03/24 14:04 08/03/24 14:27 Temperature 36.9 C Temperature Source Temporal Artery Scan Pulse Rate 71 Pulse Rate [Apical] 56 L Pulse Rate from SpO2 Sensor Respiratory Rate 18 16 Respiratory Effort / Characteristics Non-Labored Spontaneous Non-Labored Spontaneous Respiratory Depth Normal Normal Respiratory Pattern Regular Blood Pressure 123/73 Blood Pressure [Right Arm] 145/69 H Blood Pressure Mean 89 Blood Pressure Mean [Right Arm] 94 Blood Pressure Position [Right Arm] Semi-fowlers Pulse Oximetry 96 96 97 Oxygen Delivery Method Room Air Room Air Room Air Sepsis Recent Fever Within 48 Hours No Sepsis New/Unexplained Change in Mental Status N/A Sepsis Action Taken by Nursing No Action Required 08/03/24 14:42 08/03/24 14:54 08/03/24 15:00 Temperature Temperature Source Pulse Rate 59 L 57 L 57 L Pulse Rate [Apical] Pulse Rate from SpO2 Sensor 59 L 57 L 57 L Respiratory Rate 21 16 16 Respiratory Effort / Characteristics Respiratory Depth Respiratory Pattern Blood Pressure 152/77 H Blood Pressure [Right Arm] Blood Pressure Mean 105 Blood Pressure Mean [Right Arm] Blood Pressure Position [Right Arm] Pulse Oximetry 98 97 97 Oxygen Delivery Method Sepsis Recent Fever Within 48 Hours Sepsis New/Unexplained Change in Mental Status Sepsis Action Taken by Nursing 08/03/24 15:04 Temperature Temperature Source Pulse Rate 58 L Pulse Rate [Apical] Pulse Rate from SpO2 Sensor Respiratory Rate Respiratory Effort / Characteristics Respiratory Depth Respiratory Pattern Blood Pressure Blood Pressure [Right Arm] Blood Pressure Mean Blood Pressure Mean [Right Arm] Blood Pressure Position [Right Arm] Pulse Oximetry Oxygen Delivery Method Sepsis Recent Fever Within 48 Hours Sepsis New/Unexplained Change in Mental Status Sepsis Action Taken by [place] Medications Current Medication List: was personally reviewed by me Laboratory Data Attestation: I reviewed the patient's lab results. 08/03/24 13:25 08/03/24 14:38 Lab Results 08/03/24 08/03/24 08/03/24 Range/Units 13:25 14:38 15:30 WBC 6.34 (4.8-10.8) K/ul RBC 4.12 L (4.20-5.40) M/uL Hgb 12.6 (12.0-16.0) g/dl Hct 37.8 (37.0-47.0) % MCV 91.7 (80.0-100.0) fL MCH 30.6 (25.0-34.0) pg MCHC 33.3 (32.0-36.0) g/dL RDW Std Deviation 49.4 H (36.4-46.3) fL RDW Coeff of Joel 14.7 H (11.5-14.5) % Plt Count 209 (130-400) K/uL MPV 10.5 (9.4-12.4) fL Immature Gran % (Auto) 0.2 % Neut % (Auto) 68.4 % Lymph % (Auto) 18.3 % Rice % (Auto) 8.2 % Eos % (Auto) 3.8 % Baso % (Auto) 1.1 % Neut # (Auto) 4.34 (1.40-6.50) K/uL Lymph # (Auto) 1.16 L (1.20-3.40) K/uL Rice # (Auto) 0.52 (0.11-0.59) K/uL Eos # (Auto) 0.24 (0.00-0.50) K/uL Baso # (Auto) 0.07 (0.00-0.20) K/uL Immature Gran # (Auto) 0.01 (0.01-0.20) K/uL VBG pH 7.43 H (7.36-7.41) VBG pCO2 38 (38-50) mmHg VBG pO2 136 mmHg VBG HCO3 25 mmol/L VBG O2 Saturation 99.3 % VBG Base Excess 1.0 mEq/L Sodium 139 (136-145) mmol/L Potassium TNP 4.0 Chloride 102 (98-107) mmol/L Carbon Dioxide 32 (21-32) mmol/L Anion Gap 5 (3-11) BUN 33 H (6-23) mg/dl Creatinine 1.00 (0.6-1.2) mg/dl Est Cr Clr Drug Dosing 30.0 ml/min eGFR 54.53 BUN/Creatinine Ratio 33.0 H (10-20) Glucose 179 H (70-99(Fasting)) mg/dl Calcium 9.3 (8.6-10.3) mg/dl Magnesium 2.1 (1.7-2.4) mg/dl Total Bilirubin 0.6 (0.2-1.0) mg/dl AST TNP 21 ALT 17 (7-52) U/L Alkaline Phosphatase 82 (34-104) U/L Ammonia 21.0 (18-72) umol/L Total Protein 7.4 (6.0-8.3) gm/dl Albumin 4.3 (3.4-5.0) gm/dl Globulin 3.1 (2.5-4.0) gm/dl Albumin/Globulin Ratio 1.4 (0.9-2) TSH 2.465 (0.300-4.500) uIu/ml Urine Color Yellow Urine Appearance Clear (Clear) Urine pH 6.0 (4.5-7.5) Ur Specific [place] 1.020 (1.000-1.030) Urine Protein Negative (Negative) Urine Glucose (UA) Negative (Negative) Urine Ketones Trace H (Negative) Urine Blood Negative (Negative) Urine Nitrite Negative (Negative) Urine Bilirubin Negative (Negative) Urine Urobilinogen Negative (Negative) Ur Leukocyte Esterase 1+ H (Negative) Urine WBC (Auto) 11-20 H (0-5) /hpf Urine RBC (Auto) 0-2 (0-2) /hpf U Hyaline Cast (Auto) 0-2 (0-2) /lpf U Epithel Cells (Auto) 3-5 H (0-2) /hpf Urine Bacteria (Auto) 4+ H (None Seen) Administered Medications Discontinued Medications Sodium Chloride (Nss) 500 mls @ 999 mls/hr IV .Q31M ONE Stop: 08/03/24 14:15 Last Infusion: 08/03/24 15:32 Dose: Infused Documented By: Admin: 08/03/24 14:07 Dose: 999 mls/hr Documented By: DAISY Sodium Chloride (Nss) 500 mls @ 999 mls/hr IV .Q31M ONE Stop: 08/03/24 15:40 Last Admin: 08/03/24 15:58 Dose: 999 mls/hr Documented By: NEIL Imaging Data Radiologist's Impression: Head CT 08/03/24 13:44 CT head/brain wo con CLINICAL HISTORY: 89 years-old Female with confusion. Acutely altered mental status with confusion TECHNIQUE: Multiple axial CT images of the head were obtained without contrast. A dose lowering technique was utilized adhering to the principles of ALARA. CT DOSE: 580.53 mGy.cm COMPARISON: None. FINDINGS: No acute intracranial hemorrhage, midline shift, intracranial mass, hydrocephalus, territorial ischemia or abnormal extra-axial collection. Involutional changes with chronic microvascular ischemic disease. Senescent calcifications of the basal ganglia. The calvarium is intact. Partially the sella. The paranasal sinuses, mastoid air cells, and middle ear cavities are clear. IMPRESSION: No acute intracranial abnormality. ACT 112: Negative or not required by law. The above report was generated using voice recognition software. It may contain grammatical, syntax or spelling errors. Electronically signed by: Slick Lerner M.D. 08/03/2024 2:08 PM Chest X-Ray 08/03/24 14:06 XR chest 1V portable CLINICAL HISTORY: weak COMPARISON STUDY: 10/08/2016 FINDINGS: There is prominent cardiomegaly without pulmonary vascular congestion. There are mitral valvular calcifications. Lungs are hyperexpanded. No effusion, consolidation, or pneumothorax. IMPRESSION: No acute findings. ACT 112: Negative or not required by law. Electronically signed by: Oliver Whalen M.D. 08/03/2024 2:23 PM Discharge Plan Visit Data Chief Complaint: Confusion Stated Complaint: CAN'T THINK RIGHT/CAN'T ANSWER QUESTIONS,CONFUSION ED Provider: Pritesh Manzanares Discharge Problem: Acute confusion, Acute dehydration, Acute UTI Patient Disposition: Admitted As Inpatient Condition: Fair Forms Stand Alone Forms: [facility] Prescriptions Prescriptions: No Action (DME) OneTouch Ultra Blue Test Strip Strip See Dose Instructions .ROUTE .MEDSUPPLY Qty: 200 3RF Rx Instructions: test twice daily metformin 500 mg tablet 500 mg PO BID Qty: 180 3RF simvastatin 10 mg tablet 10 mg PO HS Qty: 90 3RF (DME) blood-glucose meter [OneTouch UltraMini] kit See Dose Instructions .ROUTE .MEDSUPPLY Qty: 1 0RF Dose Instruction: As directed Rx Instructions: As directed multivitamin [Multiple Vitamins] tablet 1 tab PO DAILY letrozole 2.5 mg tablet 2.5 mg PO QAM ascorbate calcium (vitamin C) 500 mg tablet 500 mg PO DAILY amlodipine 2.5 mg tablet 2.5 mg PO DAILY Qty: 90 3RF cholecalciferol (vitamin D3) 25 mcg (1,000 unit) capsule 25 mcg PO DAILY Gemtesa 75 mg tablet 75 mg PO DAILY Qty: 90 3RF escitalopram oxalate 10 mg tablet 10 mg PO HS 90 Days Qty: 90 1RF Referrals Referrals: Andreea Alcala DO [Primary Care Provider] -
[2024-08-03 14:45] LABS: Magnesium 2.1 mg/dl (1.7-2.4); Thyroid Stimulating Hormone 2.465 uIu/ml (0.300-4.500)
[2024-08-03 14:52] LABS: HCO3 VBG 25 mmol/L; Oxygen Saturation VBG 99.3 %; PCO2 VBG 38 mmHg (38-50); PO2 VBG 136 mmHg; pH VBG 7.43 (7.36-7.41)
--- NOTE | 2024-08-03 15:33 | Electrocardiogram Report ---
Test Reason : Blood Pressure : */* mmHG Vent. Rate : 65 BPM Atrial Rate : 65 BPM P-R Int : 160 ms QRS Dur : 78 ms QT Int : 408 ms P-R-T Axes : 26 -12 33 degrees QTcB Int : 424 ms Normal sinus rhythm Minimal voltage criteria for LVH, may be normal variant ( R in aVL ) Borderline ECG When compared with ECG of 04-Nov-2020 07:27, No significant change was found Confirmed by Chele Vargas ([id number]) on 08/03/2024 3:33:40 PM Referred By: Confirmed By: Chele Vargas
[2024-08-03 15:51] LABS: Appearance Urine Clear (Clear); Bacteria Urine Automated 4+ (None Seen); Bilirubin Urine Negative (Negative); Blood Urine Negative (Negative); Cast Urine Automated 0-2 /lpf (0-2); Color Urine Yellow; Glucose Urine UA Negative (Negative); Ketones Urine Trace (Negative); Leukocyte Esterase Urine 1+ (Negative); Nitrite Urine Negative (Negative); Protein Urine Negative (Negative); RBC Urine Automated 0-2 /hpf (0-2); Urobilinogen Urine Negative (Negative)
[2024-08-03] MEDS: cefTRIAXone SODIUM 2,000 MG/50 ML BAG IV STA (16:15)
--- NOTE | 2024-08-03 16:38 | History & Physical Report ---
Date of Service August 03, 2024 Assessment & Plan (1) Acute confusion: (2) Acute UTI: (3) Acute dehydration: (4) Mild cognitive impairment: (5) MDD (major depressive disorder): (6) Diabetes mellitus type 2 in nonobese: (7) Hypertension: (8) Hyperlipidemia: Plan 89 year old female with PMH significant for mild cognitive disorder, MDD, DMII with neuropathy, HTN, HLD, CKD III, GERD, history of bilateral breast cancer who presented to the ED today with acute confusion. Acute confusion Patient with underlying mild cognitive impairment with x1 month history of confusion but acutely worse today Extensive workup in the ED: labs unremarkable, EKG with NSR, negative head CT, negative CXR, normal VBG, negative ammonia, normal TSH UA concerning for infection as detailed below Acute UTI UA +leuk esterase, WBC, bacteria Patient is asymptomatic, afebrile, no leukocytosis, vitals stable Obtain blood cultures Follow urine culture Continue ceftriaxone q24hr Acute dehydration Received 1L NSS in ED Continue MIVF and diet PT/OT consults Mild cognitive impairment Patient follows with [facility] Previously tried donepezil, memantine, galantamine Has follow up appointment with Dr Gomez in August MDD Continue lexapro per home dosing DMII On metformin at home- holding while inpt SSI while inpt Hypertension Continue amlodipine per home dosing Hyperlipidemia Continue simvastatin per home dosing History of breast cancer Follows with [facility] every 6 months Continue letrozole per home dosing DVT Prophylaxis: SQ Heparin Code Status: DNR/DNI - As per discussion at bedside with the patient. PCP: Andreea Alcala Disposition: admit to med/surg tele Patient seen in collaboration with Dr Woody. Please see addendum. I spent a total of 75 minutes coordinating, documenting and providing care for this patient excluding time spent in the performance of separately billed services or time spent by another provider/QHP. Admission and Anticipated Discharge Date Admission Date: 08/03/2024 History of Present Illness Chief Complaint: confusion Primary Care Provider: Andreea Alcala DO 89 year old female with PMH significant for mild cognitive disorder, MDD, DMII with neuropathy, HTN, HLD, CKD III, GERD, history of bilateral breast cancer who presented to the ED today with confusion. History obtained from patient and her . Her explains that patient has been increasingly confused for the last month, in particular with waking up and not knowing what to do next. He explains that she is oriented to self and location but occasionally forgets to get ready in the morning and does not remember how to cook. Today, she was laying on the couch and her came home and noticed she was acutely confused and didn't know what to do with herself. She states she didn't feel right in her memory. They sought evaluation at urgent care and were referred to the ED. She denies fevers, chills, cough, cold symptoms, chest pain, SOB, ab dominal pain, N/V/D, dysuria. They report that she has had two falls in the last two months. One was six weeks ago where she went down and fell on her right knee. The other was about 10 days ago where she lowered herself down and sustained no injuries. She denies hitting her head or LOC with either fall. They currently live at [facility] in independent living. Allergies Allergy/AdvReac Type Severity Reaction Status Date / Time codeine AdvReac Severe Hallucinati Verified 08/03/24 15:39 ons hydrocodone [From Vicodin] AdvReac Severe Hallucinati Verified 08/03/24 15:39 ons oxycodone AdvReac Severe Hallucinati Verified 08/03/24 15:39 ons tramadol AdvReac Intermediate GI upset Verified 08/03/24 15:39 Home Medications Medication Instructions Recorded Confirmed Type multivitamin (Multiple Vitamins 1 tab PO DAILY 11/28/18 08/03/24 History tablet) letrozole 2.5 mg tablet 2.5 mg PO QAM 02/14/19 08/03/24 History blood-glucose meter (OneTouch #1 ea 02/15/19 02/24/24 Rx UltraMini kit) blood sugar diagnostic #200 ea 11/24/20 02/24/24 Rx amlodipine 2.5 mg tablet 2.5 mg PO DAILY #90 tabs 05/31/22 08/03/24 Rx ascorbate calcium (vitamin C) 500 500 mg PO DAILY 05/31/22 08/03/24 History mg tablet metformin 500 mg tablet 500 mg PO BID #180 tabs 08/18/22 08/03/24 Rx simvastatin 10 mg tablet 10 mg PO HS #90 tabs 08/18/22 08/03/24 Rx cholecalciferol (vitamin D3) 25 25 mcg PO DAILY 11/21/23 08/03/24 History mcg (1,000 unit) capsule vibegron 75 mg tablet (Gemtesa) 75 mg PO DAILY #90 tabs 01/27/24 08/03/24 Rx escitalopram oxalate 10 mg tablet 10 mg PO HS 08/03/24 08/03/24 History Past Med/Surg History Problem List (Updated 08/03/24 @ 16:36 by TIGIST Sahni) GERD (gastroesophageal reflux disease) Chronic kidney disease, stage III (moderate) MDD (major depressive disorder) Acute UTI (Acute) Acute dehydration (Acute) Acute confusion (Acute) Hypertension (Acute) Hyperlipidemia (Acute) Diabetes mellitus type 2 in nonobese (Acute 09/04/11) NIDDM Mild cognitive impairment Medical History (Updated 08/03/24 @ 16:36 by TIGIST Sahni) Memory loss Diabetes Arthritis Chronic cerebral ischemia Asymmetric SNHL (sensorineural hearing loss) Asymptomatic menopausal state Brachial plexopathy Breast cancer 2015 right er/pr+, 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 Generalized osteoarthritis of multiple sites Insomnia Lower back pain Lumbosacral radiculopathy at L4 Neuropathy (09/04/11) Urge incontinence of urine Urinary urgency Ventral hernia Tachycardia (09/04/11) Rotator cuff tear arthropathy of right shoulder DVT prophylaxis Encounter for pre-operative examination History of chemotherapy History of memory loss History of anemia History of breast cancer lobular hyperplasia with atypical and fibrocystic changes Excessive cerumen in right ear canal Gastric ulcer Per remote records, pt denies Incisional hernia reason for upcoming hernia repair Surgical History (Updated 08/03/24 @ 16:36 by TIGIST Sahni) History of incisional hernia repair (11/04/20) Incisional hernia, incarceration of omentum. Dr. 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) History of cardiac cath 2000 ([facility]) > no stents History of bilateral tubal ligation History of colonoscopy History of right shoulder replacement History of left knee replacement Hx of tonsillectomy 1954 S/P tonsillectomy S/P mastectomy, bilateral (~2016) simple mastectomy S/P breast biopsy S/P foot surgery right S/P cataract surgery both eyes History of back surgery lumbar fusion Family History Sister Breast cancer Sister Breast cancer Aunt Colorectal cancer Family/Other Colorectal cancer Mother Diabetes Dementia Hypertension Father Leukemia Other No family history of adverse response to anesthesia Denies family history of Ovarian cancer Prostate cancer Myocardial infarction Social History Smoking Status: Never smoker Second Hand Exposure: No; Do You Dip or Chew Tobacco: No; Hx Alcohol Use: Yes Alcohol type: wine Alcohol Intake Frequency Comment: occassionally Hx Substance Use: No Preferred Language: Bol[place]ian Communication Ability: Effective Visual Impairment: No Limitations Hearing Ability: Use of Hearing Aid Strand Galvanizer Required: No Beliefs That Will Affect Care: None marital status: Current Living Situation: Spouse current occupational status: retired How many Children do You have: 3 Feels Safe at Home: Yes Diet: regular during the past year weight has: decreased > 10 lbs Physical Activity Frequency: 3-4 Times per Week Physical Activity Frequency Comment: regularly Seatbelt Use: always Assistive Devices: Denture - Lower Review of Systems Review of Systems: All systems reviewed & are unremarkable except as noted in HPI & below Physical Exam Physical Exam: General/Psych: WD/WN, sitting up in bed, NAD, conversing easily, euthymic affect Head: normocephalic, atraumatic Eyes: normal inspection, PERRL, conjunctivae pink, anicteric sclerae ENT: external ear and nose normal, oropharynx normal Neck: normal visual inspection, trachea midline, no thyromegaly Respiratory: normal respiratory effort, lungs clear to auscultation, no wheeze/rales/rhonchi, no accessory muscle use Cardiovascular: regular rate and rhythm, no murmur/rub/gallop, no JVD Extremities: no cyanosis or clubbing, normal peripheral pulses, swelling of the right knee and lower leg d/t traumatic fall Abdomen/GI: normal bowel sounds, soft, nontender, no hepatosplenomegaly Neurologic/MSK: A+Ox3, motor strength 5/5, moves all extremities Skin: no rashes, normal color, warm and dry, significant bruising over right knee and mendieta Results & Data Results & Data Vital Signs (Past 12 Hours) Vital Signs Temp Pulse Pulse Resp BP BP Pulse Ox 08/03/24 15:04 58 L 08/03/24 15:00 57 L 16 152/77 H 97 08/03/24 14:54 57 L 16 97 08/03/24 14:42 59 L 21 98 08/03/24 14:27 97 08/03/24 14:04 56 L 16 145/69 H 96 08/03/24 13:07 36.9 C 71 18 123/73 96 O2 Del Method 08/03/24 15:04 08/03/24 15:00 08/03/24 14:54 08/03/24 14:42 08/03/24 14:27 Room Air 08/03/24 14:04 Room Air 08/03/24 13:07 Room Air Laboratory Results Short CBC 08/03/24 Range/Units 13:25 WBC 6.34 (4.8-10.8) K/ul Hgb 12.6 (12.0-16.0) g/dl Hct 37.8 (37.0-47.0) % Plt Count 209 (130-400) K/uL BMP 08/03/24 08/03/24 13:25 14:38 Sodium 139 Potassium TNP 4.0 Chloride 102 Carbon Dioxide 32 BUN 33 H Creatinine 1.00 Glucose 179 H Calcium 9.3 Liver Function 08/03/24 08/03/24 Range/Units 13:25 14:38 Total Bilirubin 0.6 (0.2-1.0) mg/dl AST TNP 21 ALT 17 (7-52) U/L Alkaline Phosphatase 82 (34-104) U/L Albumin 4.3 (3.4-5.0) gm/dl Urine 08/03/24 Range/Units 15:30 Urine Color Yellow Urine Appearance Clear (Clear) Urine pH 6.0 (4.5-7.5) Ur Specific [place] 1.020 (1.000-1.030) Urine Protein Negative (Negative) Urine Glucose (UA) Negative (Negative) I have independently reviewed and interpreted patient's admitting labs including CBC, CMP, mag, VBG, ammonia, TSH, UA. Diagnostic Findings Head CT 08/03/24 13:44 CT head/brain wo con CLINICAL HISTORY: 89 years-old Female with confusion. Acutely altered mental status with confusion TECHNIQUE: Multiple axial CT images of the head were obtained without contrast. A dose lowering technique was utilized adhering to the principles of ALARA. CT DOSE: 580.53 mGy.cm COMPARISON: None. FINDINGS: No acute intracranial hemorrhage, midline shift, intracranial mass, hydrocephalus, territorial ischemia or abnormal extra-axial collection. Involutional changes with chronic microvascular ischemic disease. Senescent calcifications of the basal ganglia. The calvarium is intact. Partially the sella. The paranasal sinuses, mastoid air cells, and middle ear cavities are clear. IMPRESSION: No acute intracranial abnormality. ACT 112: Negative or not required by law. The above report was generated using voice recognition software. It may contain grammatical, syntax or spelling errors. Electronically signed by: Slick Lerner M.D. 08/03/2024 2:08 PM Chest X-Ray 08/03/24 14:06 XR chest 1V portable CLINICAL HISTORY: weak COMPARISON STUDY: 10/08/2016 FINDINGS: There is prominent cardiomegaly without pulmonary vascular congestion. There are mitral valvular calcifications. Lungs are hyperexpanded. No effusion, consolidation, or pneumothorax. IMPRESSION: No acute findings. ACT 112: Negative or not required by law. Electronically signed by: Oliver Whalen M.D. 08/03/2024 2:23 PM ECG Additional Comments: I have independently reviewed and interpreted patient's admitting EKG which revealed: NSR at a rate of 65bpm Code Status & VTE Plan Code Status DNR/DNI Supervising Physician Co-Signing Physician Notes Attending addendum: The patient was seen and examined in emergency room in presence of the She has been complaining of increasing confusion for the last 1 month Condition has been getting worse and went to urgent care today and was sent into the emergency room Feeling little better in the ER and denies any significant symptoms except minimal confusion- no abdominal pain, no nausea or vomiting no fever and no chills On examination Lying in bed without any acute distress but looks anxious Hemodynamically stable, afebrile with a blood pressure on the upper side at 178/84 Chestclear to auscultate bilaterally HeartS1-S2, regular Abdomenbenign Extremitiesno edema Her admission labs and imaging studies reviewed Significant finding was UA suggestive of infection and she was started with intravenous ceftriaxone Increasing confusion with history of mild cognitive impairment likely secondary to ongoing infection Urine culture and blood cultures will be sent and she will be given small amount of intravenous fluid for mild dehydration Agree with assessment and plan as outlined above by Kisha ESCOTO and take the full responsibility of care in the hospital Total time taken and documented all this in examination was [address] Lj Woody
[2024-08-03] MEDS: SODIUM CHLORIDE 0.9% 500 ML IV SCH (18:15)
[2024-08-03] MEDS ORDERED: DEXTROSE 50% 50 ML SYRINGE IV PRN (20:14)
[2024-08-03] MEDS ORDERED: ACETAMINOPHEN 325 MG TAB PO PRN (20:14)
[2024-08-03] MEDS ORDERED: CARBOHYDRATES FOR HYPOGLYCEMIA PO PRN (20:14)
[2024-08-03] MEDS ORDERED: GLUCAGON FOR INJ 1 MG VIAL SQ PRN (20:14)
[2024-08-03] MEDS ORDERED: GLUCOSE 40% GEL 15 GM TUBE PO PRN (20:14)
[2024-08-03] MEDS ORDERED: POLYETHYLENE (MIRALAX) 17 GM PACK PO PRN (20:14)
[2024-08-03] MEDS ORDERED: GLUCOSE 10 TAB/TUBE PO PRN (20:14)
--- OUTSIDE RECORDS SUMMARY | 2024-08-03 20:43 | External Medical Summary | Summary of Care ---
Author Name Unknown Organization [facility] Address [address] [facility] [place] [address] Phone [phone] Care Team Providers Care Slide Machine Tender Name Role Phone Andreea Alcala DO Primary Care Provider [phone] Reason for Visit * Reason Onset Date Comments Order Request 07/05/2024 Labs Encounter Details Date Type Department Care Team (Late st Contact Info) Description 07/05/2024 Telephone Family Practice [address] [place] [id number] Andreea Alcala DO [address] [place] [id number] Order Request (Labs) Allergies Active Allergy Reactions Criticality Noted Date Comments Codeine 12/08/2022 Mind alterting Tramadol 05/13/2023 Hydrocodone-Acetaminophen 03/14/2014 documented as of this encounter (statuses as of 07/05/2024) Medications CENTRUM SILVER OR TABS one pill each day 3 Active Letrozole 2.5 MG Oral Tablet (Femara) Take 1 Tablet by mouth in the morning. Active Gemtesa 75 MG Oral Tablet (Vibegron) Take 1 Tablet by mouth at bedtime. Active Memantine HCl 10 MG Oral Tablet (Namenda) Take 0.5 Tablets by mouth every morning. Active Vitamin C 500 MG Oral Capsule Take by mouth. Active Galantamine Hydrobromide ER 16 MG Oral Capsule Extended Release 24 Hour (Razadyne ER) Take 16 mg by mouth in the morning. 3 Active Vitamin D3 1000 UNIT Oral Capsule Take 1 Capful by mouth every evening. Active amLODIPine Besylate 2.5 MG Oral Tablet (Norvasc)Indicati ons:Primary hypertension Take 1 Tablet by mouth in the morning. 90 Tablet 3 4 Active metFORMIN HCl 500 MG Oral Tablet (Glucophage)Indic ations:Type 2 diabetes mellitus with hemoglobin A1c goal of less than 7.0% (HCC) Take 1 Tablet by mouth 2 times a day with morning and evening meals. 180 Tablet 3 4 Active Escitalopram Oxalate 10 MG Oral Tablet (Lexapro) Take 1 Tablet by mouth in the morning. 4 Active OneTouch Ultra Test In Vitro Strip (Glucose Blood)Indications :Type 2 diabetes mellitus with hemoglobin A1c goal of less than 7.0% (HCC) Test twice a day 200 Strip 3 4 Active Simvastatin 10 MG Oral Tablet (Zocor)Indication s:Type 2 diabetes mellitus with hemoglobin A1c goal of less than 7.0% (HCC) TAKE 1 TABLET AT BEDTIME 90 Tablet 2 5 Active documented as of this encounter (statuses as of 07/05/2024) Active Problems Problem Noted Date Diagnosed Date Chronic kidney disease, stage 3a 12/20/2022 Overview: Per CKD protocol History of basal cell carcinoma (BCC) 12/08/2022 Overview (12/08/2022): bcc scalp bcc scalp Diverticulosis 12/08/2022 Generalized osteoarthritis of multiple sites Hypertension 12/08/2022 Lumbosacral radiculopathy at L4 12/08/2022 Malignant neoplasm of breast 12/08/2022 Mild cognitive impairment 12/08/2022 Urge incontinence of urine 12/08/2022 Ventral hernia 12/08/2022 Chronic cerebral ischemia 12/08/2022 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 ICD-10 update of inactive term Varicose vein of leg 10/30/2002 documented as of this encounter (statuses as of 07/05/2024) Resolved Problems Problem Noted Date Diagnosed Date Resolved Date Unspecified dementia, unspec ified severity, without behavioral disturbance, psychotic disturbance, mood disturbance, and anxiety 05/13/2023 05/13/2023 Gastric ulcer 12/08/2022 12/08/2022 Incisional hernia 12/08/2022 12/08/2022 ADVANCE DIRECTIVE INFORMATION 09/15/2004 02/13/2024 Overview (09/15/2004): No, Advance Directive brochure given to patient. Type 2 diabetes mellitus wit h hemoglobin A1c goal of less than 7.0% 10/30/2002 02/06/2009 Overview (08/05/2015): Per Diabetes Taxonomy. ICD-10 update of inactive term OTHER 10/30/2002 12/08/2022 Lump or mass in breast 10/30/200212/08 FAMILY HX-BREAST MALIG 10/30/200212/08 documented as of this encounter (statuses as of 07/05/2024) Immunizations Name Administration Dates Next Due COVID-19 mRNA, LNP-s, No Pre serve, 2-Dose Series (Kiddies Smilz) 12/29/2020,04/29/2020 COVID-19, MRNA-LNP, PF, 30 M CG/0.3 mL, 12 YRS AND ABOVE, IM (PFIZER-Comirnaty) 02/10/2024 Covid-19, Mrna, Lnp-s, Pf, B ivalent, 30 Mcg, IM, 12 yrs and above (Pfizer) 01/12/2022 Hepatitis B, 0-19 yrs 04/13/1990,11/14/1989,05/1989 RSV Vac., Bivalent, Perfusio n F, Pf,0.5 Ml (Abrysvo) 02/09/2023 Seasonal Influenza Virus Vac cine, Unspecified Formulation 01/29/2021,01/18/2020,01/07/2019,2015,02/28/2015,12/22/2010,02/18/2005,1 ,02/16/1999 Seasonal Influenza, High Dos e, Trivalent, PF, IM (Fluzone HD) 02/15/2024,01/01/2018 TD - Tetanus/Diptheria (ADULT) 10/21/2009,1997 TD, Preservative Free 10/21/2009,10/29/1997 TDAP, Age 7 and older, IM (Adacel) 09/27/2020, Varicella Zoster Vaccine (Adult) 01/01/2018 Zoster Vaccine Recombinant (Shingrix) 01/01/2018 documented as of this encounter Social History Tobacco Use Types Packs/Day Years Used Date Smoking Tobacco: Former Cigarettes 0 [birth year]/11/1951 - 04/11/1969 Smokeless Tobacco: Never Alcohol Use Standard Drinks/Week Comments Yes 0 (1 standard drink = 0.6 oz pur e alcohol) rarely PHQ-2 Answer Date Recorded PHQ Adult Total Score 11 03/15/2024 Hunger Vital Sign Answer Date Recorded Within the past 12 months, y ou worried that your food would run out before you got the money to buy more. Never true 12/21/19 24 Within the past 12 months, t he food you bought just didn't last and you didn't have money to get more. Never true 12/21/2023 Childcare Answer Date Recorded Do you feel overwhelmed with taking care of a child, family member or friend? No 12/21/2023 Does your family need help f inding childcare? (Household - for ages 0-17 years) Not on file 12/21/2023 Clothing Answer Date Recorded Have you been unable to get clothing when it was really needed? No 12/21/2023 Is your family able to get c lothes or diapers when needed? (Household - for ages 0-17 years) Not on file 12/21/2023 Personal Safety Answer Date Recorded Do you feel unsafe or have concerns for your saf ety? No 12/21/2023 Do you have concerns for you r family's safety? (Household - for ages 0-17 years) Not on file 12/21/2023 Utilities Answer Date Recorded Do you have trouble paying y our heating, water, or electric bill? No 12/21/2023 Is your family able to pay t he heat, water, or electric bill? (Household - for ages 0-17 years) Not on file 12/21/2023 Does your family have access to good internet? (Household - for ages 0-17 years) Not on file 12/21/2023 Employment Status Answer Date Recorded Are you unemployed or without regular income? No 12/21/2023 Does the household have a re lar source of income? (Household - for ages 0-17 years) Not on file 12/21/2023 Social Connections Answer Date Recorded How often do you feel lonely or isolated from th ose around you? Never 12/21/2023 Financial Resource Strain Answer Date R ecorded Do you have any trouble payi ng for your medications, or do you think you might in the future? No 12/21/2023 Does your family have troubl e paying for medicine? (Household - for ages 0-17 years) Not on file 12/21/2023 Transportation Needs Answer Date Record ed Do you have trouble getting a ride to medical visits or work? (Adult - for ages 18 years and over) Not on file 12/21/2023 Does your family have a hard time getting a ride to doctors visits? (Household - for ages 0-17 years) Not on file 12/21/2023 Has lack of transportation k ept you from medical appointments, meetings, work, or from getting things needed for daily living? Check all that apply. No 12/21/2023 Do you (or your family) have trouble finding or paying for a ride (transportation)? (Household - for ages 0-17 years) Not on file 12/21/2023 Housing Stability Answer Date Recorded Do you currently live in a s helter or have no steady place to sleep at night? No 12/21/2023 Do you think you are at risk of becoming homeless? (Adult - for ages 18 years and over) Not on file 12/21/2023 Does your family worry about paying for your home or becoming homeless? (Household - for ages 0-17 years) Not on file 0 12/21/2023 Are you homeless or worried that you might be in the future? No 12/21/2023 Are you (or your family) ramesh eless or worried that you might be in the future? (Household - for ages 0-17 years) Not on file Food Insecurity Answer Date Recorded Do you need food for this week? No 12/21/2023 Are you able to get enough f ood for your family? (Household - for ages 0-17 years) Not on file 12/21/2023 Does your family need food t his week? (Household - for ages 0-17 years) Not on file 12/21/2023 Do you always have enough fo od for your family? (Household - for ages 0-17 years) Not on file 12/21/2023 Food Insecurity Answer Date Recorded Within the past 12 months, y ou worried that your food would run out before you got the money to buy more. Never true 12/21/19 24 Within the past 12 months, t he food you bought just didn't last and you didn't have money to get more. Never true 12/21/2023 Do you need food for this week? No 12/21/2023 Comments No Sex and Gender Information Value Date Recorded Sex Assigned at Female 12/21/2023 8:59 AM EDT Legal Sex Female 4:59 AM EST Gender Identity Female 12/21/2023 8:59 AM EDT Sexual Orientation Straight 12/21/2023 8: 59 AM EDT documented as of this encounter Miscellaneous Notes * Telephone Encounter - Yvrose Narvaez RN - 07/05/2024 10:40 AM EDT Provider to address: NA Reason for Call: Order Request (Labs) Contact: Telephone Call Contact Type: Orders Provider In-Basket: Yes Outcome: orders placed for upcoming appt and pt made aware Face to face time spent with Patient (minutes): 0 Total Time including non face to face (minutes): 10 * Telephone Encounter - Abigail Isaac LPN - 07/05/2024 8:08 AM EDT Patient is scheduled on 07/13/2024 with Le Busch PA-C. Last labs completed 11/29/2023 * Telephone Encounter - Jackie Gutierrez OSA - 07/05/2024 8:01 AM EDT Pt stopped in office for labs. No orders in system. Please advise if labs are needed. documented in this encounter Plan of Treatment Upcoming Encounters Date Type Department Care Team (Late st Contact Info) Description 07/13/2024 7:40 AM EDT Office Visit [facility] [address] [place] [address] Alfonzo Busch PA-C [address] [place] [phone] Scheduled Orders Name Type Priority Associated Diagnoses Orde r Schedule HEMOGLOBIN A1C Lab Routine Type 2 diabetes mellitus with hemoglobin A1c goal of less than 7.0% (HCC) Chronic kidney disease, stage 3a (HCC) Expected: 07/05/2024 (Approximate), Expires: 07/05/2025 ALBUMIN / CREATININE RATIO, URINE Lab Routine Type 2 diabetes mellitus with hemoglobin A1c goal of less than 7.0% (HCC) Chronic kidney disease, stage 3a (HCC) Expected: 07/05/2024 (Approximate), Expires: 07/05/2025 PHOSPHORUS Lab Routine Chronic kidney disease, stage 3a (HCC) Expected: 07/05/2024, Expires: 07/05/2025 LIPID PANEL WITH DIRECT LDL IF TG IS HIGH Lab Routine Hyperlipidemia, unspecified hyperlipidemia type Expected: 07/05/2024, Expires: 07/05/2025 COMPREHENSIVE METABOLIC PANEL Lab Routine Type 2 diabetes mellitus with hemoglobin A1c goal of less than 7.0% (HCC) Primary hypertension Chronic kidney disease, stage 3a (HCC) Expected: 07/05/2024 (Approximate), Expires: 07/05/2025 CBC WITH WBC DIFFERENTIAL Lab Routine Type 2 diabetes mellitus with hemoglobin A1c goal of less than 7.0% (HCC) Primary hypertension Chronic kidney disease, stage 3a (HCC) Expected: 07/05/2024 (Approximate), Expires: 07/05/2025 Health Maintenance Due Date Last Done Comments DXA Scan 1935 Pneumococcal Vaccine: 50+ Years (1 of 2 - PCV) 1954 Zoster Vaccines (3 of 3) 02/26/2018 01/01/2018, 12/11 Colonoscopy 12/10/2019 12/09/2014 Albumin/Creatinine Ratio 05/04/2024 024, 08/18/2022, 08/14/2021 HbA1c 05/31/2024 11/29/2023, 04/12, 08/18/2022, Additional history exists COVID-19 Vaccine ( season) 2024 02/10/2024, 01/12/2022, 12/29/2020, Additional history exists Diabetic Eye Exam 09/11/2024 09/12/2023, , 07/19/2022 CKD HGB USE SMARTSET 92498 11/28/202411/28, 11/29/2023, 06/09/2023, Additional history exists CKD PHOS USE SMARTSET 06389 11/28/2024 11/29/2023 Adult Wellness Visit 03/15/2025 03/15/2024 Depression Monitoring 03/15/2025 03/15/2024 , 03/15/2024, 12/21/2023 Diabetic Foot Exam 03/15/2025 03/15/2024 DTap/Tdap Vaccines (3 - Td or Tdap) 09/27/2030 09/27/2020, 12/22/2010, 10/21/2009, Additional history exists Hepatitis B Vaccine Aged Out 04/13/1990, 11/14/1989, 10/10/1989 No longer eligible based on patient's age to complete this topic RETIRED - COLONOSCOPY-EVERY 5 YRS AGES 18-100 Discontinued 12/09/2014 Influenza Vaccine (FLU shot) Completed 02/15/2024, 01/29/2021, 01/18/2020, Additional history exists HPV (Gardasil) Vaccine Aged Out No lo nger eligible based on patient's age to complete this topic MENINGOCOCCAL (MENACTRA/MENVEO) Aged Out No longer eligible based on patient's age to complete this topic Meningitis B Vaccine (Bexsero/Trumemba) Aged Out No longer eligible based on patient's age to complete this topic documented as of this encounter Medical Devices Not on filedocumented as of this encounter Visit Diagnoses Diagnosis Type 2 diabetes mellitus with hemoglobin A1c goal of less than 7.0% (HCC)- Primary Hyperlipidemia, unspecified hyperlipidemia type Primary hypertension Unspecified essential hypertension Chronic kidney disease, stage 3a (HCC) documented in this encounter Care Teams Slide Machine Tender Relationship Specialty Start Date End Date Andreea Alcala DO [address] [facility] [place] [phone] PCP - General Family Medicine 12/08/22 documented as of this encounter
--- OUTSIDE RECORDS SUMMARY | 2024-08-03 20:43 | External Medical Summary | Summary of Care ---
Author Name Unknown Organization [facility] Address [address] [facility] [place] [address] Phone [phone] Care Team Providers Care Classifier Tender Name Role Phone Andreea Alcala DO Primary Care Provider [phone]- [phone] Reason for Visit * Reason Comments Return Visit No concerns at this time Encounter Details Date Type Department Care Team (Late st Contact Info) Description 07/13/2024 7:40 AM EDT Office Visit Family [facility] [address] [place] [address] Alfonzo Busch PA-C [address] [place] [address] Leukocytosis, unspecified type*; Mild cognitive impairment; MDD (major depressive disorder), recurrent episode, moderate ([facility]); Type 2 diabetes mellitus with hemoglobin A1c goal of less than 7.0% ([facility]); Diabetic peripheral neuropathy ([facility]); Primary hypertension; Chronic kidney disease, stage 3a ([facility]); Hyperlipidemia with target LDL less than 70; Gastroesophageal reflux disease without esophagitis; History of basal cell carcinoma; Personal history of malignant neoplasm of breast Allergies Active Allergy Reactions Criticality Noted Date Comments Codeine 12/08/2022 Mind alterting Tramadol 05/13/2023 Hydrocodone-Acetaminophen 03/14/2014 documented as of this encounter (statuses as of 07/13/2024) Medications CENTRUM SILVER OR TABS one pill each day 07/22/200 3 Active Letrozole 2.5 MG Oral Tablet [...] as of this encounter (statuses as of 07/13/2024) Active Problems Problem Noted Date Diagnosed Date Chronic kidney disease, stage 3a 12/20/2022 Overview: Per CKD protocol History of basal cell carcinoma (BCC) 12/08/2022 Overview (12/08/2022): bcc scalp bcc scalp Diverticulosis 12/08/2022 Generalized osteoarthritis of multiple sites Hypertension 12/08/2022 Lumbosacral radiculopathy at L4 12/08/2022 Mild cognitive impairment 12/08/2022 Urge incontinence [...] as of this encounter (statuses as of 07/13/2024) Resolved Problems Problem Noted Date Diagnosed Date Resolved Date Unspecified dementia, unspec ified severity, without behavioral disturbance, psychotic disturbance, mood disturbance, and anxiety 05/13/2023 05/13/2023 Gastric ulcer 12/08/2022 12/08/2022 Malignant neoplasm of female breast 12/08/2022 07/13/2024 Incisional hernia 12/08/2022 12/08/2022 ADVANCE DIRECTIVE INFORMATION [...] as of this encounter (statuses as of 07/13/2024) Immunizations Name Administration Dates Next Due COVID-19 mRNA, LNP-s, No Pre serve, 2-Dose Series (PixelPin) 12/29/2020,04/29/2020 COVID-19, MRNA-LNP, PF, 30 M CG/0.3 mL, 12 YRS AND ABOVE, IM ([facility]) 02/10/2024 Covid-19, Mrna, Lnp-s, Pf, B ivalent, [...] older, IM (Adacel) 09/27/2020, Varicella Zoster Vaccine Aldair lt (Zostavax) 01/01/2018 Zoster Vaccine Recombinant (Shingrix) 01/01/2018 documented as of this encounter Social History Tobacco Use Types Packs/Day Years Used Date Smoking Tobacco: Former Cigarettes 0 [birth year]11/1949 - 04/11/1969 Smokeless Tobacco: Never Tobacco Cessation:Counseling Given: Not Answered Alcohol Use Standard Drinks/Week Comments Yes 0 [...] No 12/21/2023 Does the household have a [facility] source of income? (Household - for ages [...] AM EDT documented as of this encounter Last Filed Vital Signs Vital Sign Reading Time Taken Comments Blood Pressure 130/70 07/13/2024 7:03 AM EDT Pulse 62 07/13/2024 7:03 AM EDT Temperature 35.9 °C (96.7 °F) 07/13/2024 7:03 AM ED T Respiratory Rate 20 07/13/2024 7:03 AM EDT Oxygen Saturation 95% 07/13/2024 7:03 AM EDT Inhaled Oxygen Concentration - - Weight 56.8 kg (125 lb 3.2 oz) 07/13/2024 7:03 A M EDT Height 149.9 cm (4' 11") 07/13/2024 7:03 AM EDT Body Mass Index 25.29 07/13/2024 7:03 AM EDT documented in this encounter Progress Notes * Alfonzo Busch PA-C - 07/13/2024 7:25 AM EDT Images from the original note were not included. History of Present Illness Lorne Borjas is a 89 year old female that presents for routine visit. Denies any acute complaintstoday. Most recent labs from 06/2024 reviewed - CBC stable with elevated WBC count of 13.4; CMP stable with creatinine 1.0, GFR 58; hepatic panel normal; LDL 75; phosphorus normal; A1c 7.0; urine/creatinineratio with very mild micro proteinuria. - regarding the leukocytosis - this is new, but she is apparently asymptomatic. Repeat labs in 1 month. History of type 2 diabetes, last A1c stable as above. Follows with [facility] for eye exams.No longer takes asa. - follows with Podiatry, last visit appears to have been 11/2023. History of hypertension, currently well-controlled. 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 She also has evidence of rather significant depression. - saw primary neurologist in 11/2023 for the mild cognitive decline also. - SIG E CAPS - she does report "better off " attitude, but no active plan to harm herself; denies anhedonia; some guilt; energy poor; concentration fair; appetite poor; sleep "awful." - takes lexapro, prescribed by Dr. Montes. She's unsure if it's really helped. Next visit 08/2024. She's spoken with a few counselors in the past, but states most of them are quite busy. Follows with Hematology/Oncology for history of bilateral breast cancer, last visit 12/2023. Continues on letrozole daily. - they order the dexa, and she states she just had one at [facility] about 2 months ago. Will request. Saw ENT in 07/2023 for asymmetric sensorineural hearing loss and chronic rhinitis. MRI of the brainat that time was normal. Follows with Dermatology for history of basal cell cancer. Last visit 10/2023. Patient Active Problem List Diagnosis Varicose vein of leg Type 2 diabetes mellitus with hemoglobin A1c goal of less than 7.0% (HCC) History of basal cell carcinoma (BCC) Diverticulosis Gastroesophageal reflux disease without esophagitis Generalized osteoarthritis of multiple sites Hypertension Hyperlipidemia Insomnia Lumbosacral radiculopathy at L4 Mild cognitive impairment Urge incontinence of urine Ventral hernia Diabetic peripheral neuropathy (HCC) Chronic cerebral ischemia Atherosclerosis of artery of both lower extremities ([facility]) Asymmetric SNHL (sensorineural hearing loss) Chronic kidney disease, stage 3a ([facility]) Review of patient's allergies indicates: Allergen Reactions Codeine Mind alterting Tramadol Vicodin [Hydrocodone-Acetaminophen] Current Outpatient Medications Medication Sig Dispense Refill CENTRUM SILVER OR TABS one pill each day Letrozole 2.5 MG Oral Tablet (Femara) Take 1 Tablet by mouth in the morning. Gemtesa 75 MG Oral Tablet (Vibegron) Take 1 Tablet by mouth at bedtime. Memantine HCl 10 MG Oral Tablet (Namenda) Take 0.5 Tablets by mouth every morning. Vitamin C 500 MG Oral Capsule Take by mouth. Vitamin D3 1000 UNIT Oral Capsule Take 1 Capful by mouth every evening. amLODIPine Besylate 2.5 MG Oral Tablet (Norvasc) Take 1 Tablet by mouth in the morning. 90 Tablet 3 metFORMIN HCl 500 MG Oral Tablet (Glucophage) Take 1 Tablet by mouth 2 times a day with morning andevening meals. 180 Tablet 3 Escitalopram Oxalate 10 MG Oral Tablet (Lexapro) Take 1 Tablet by mouth in the morning. OneTouch Ultra Test In Vitro Strip (Glucose Blood) Test twice a day 200 Strip 3 Simvastatin 10 MG Oral Tablet (Zocor) TAKE 1 TABLET AT BEDTIME 90 Tablet 2 Galantamine Hydrobromide ER 16 MG Oral Capsule Extended Release 24 Hour (Razadyne ER) Take 16 mg bymouth in the morning. No current facility-administered medications for this visit. Past Medical History: Diagnosis Date DM type 2, goal A1c below 7 FAMILY HX-BREAST MALIG 10/30/2002 Gastric ulcer 12/08/2022 Incisional hernia 12/08/2022 Lump or mass in breast 10/30/2002 OTHER Rapid heart rate OTHER Hx of peripheral neuropathy Unspecified dementia, unspecified severity, without behavioral disturbance, psychotic disturbance, mood disturbance, and anxiety (HCC) 2023-05-13 Adding F03.90-Unspecified dementia, unspecified severity, without behavioral disturbance, psychoticdisturbance, mood disturbance, and anxiety (HCC) Dx to History Varicose vein of leg Past Surgical History: Procedure Laterality Date BIOPSY OF BREAST, OPEN 1977 ? Breast Biopsy, Benign Disease COLONOSCOPY, DIAGNOSTIC (RECTUM) 12/09/2014 adenomatous polyps, diverticulosis, repeat 5 yrs/[facility] EGD, FLEXIBLE, DIAGNOSTIC N/A 08/19/2014 ESOPHAGOGASTRODUODENOSCOPY (EGD), FLEXIBLE, TRANSORAL, DIAGNOSTIC performed by Enzo Ragsdale MD at [facility] EGD, FLEXIBLE, DIAGNOSTIC 10/25/2014 moderate inflammation/[facility] EGD, W/ENDOSCOPIC US N/A 03/18/2014 ESOPHAGOGASTRODUODENOSCOPY (EGD), FLEXIBLE, TRANSORAL, ENDOSCOPIC ULTRASOUND performed by Enzo Canas MD at [facility] EGD, W/ENDOSCOPIC US N/A 08/19/2014 ESOPHAGOGASTRODUODENOSCOPY (EGD), FLEXIBLE, TRANSORAL, ENDOSCOPIC ULTRASOUND performed by Enzo Canas MD at [facility] LIGATE/CUT OVIDUCT(S) 1966 Tubal Ligation MISCELLANEOUS ORDER hammer toe repair MISCELLANEOUS ORDER 04/503 breast bx with needle localization right REMOVAL OF TONSILS, AGE 12+ 1953? Tonsils Removal,12+ Y/O Family History Problem Relation Name Age of Onset Hypertension Mother Diabetes Mother Cancer Father (mar age 65) leukemia Cancer Sister (mar at age 43) breast with mets diag in her 30's Cancer Sister (mar at age 53) breast with mets diag in her 30's Cancer Aunt (Unspecified) Mat (mar) breast Cancer Aunt (Unspecified) Mat (mar) colon Cancer Aunt (Unspecified) Pat (mar) breast with mets Family Status Relation Status Mo Fa Sis Sis Sis Bro AUNT (Not Specified) AUNT (Not Specified) AUNT (Not Specified) AUNT (Not Specified) Social History Socioeconomic History Marital status: Tobacco Use Smoking status: Former Current packs/day: 0.00 Types: Cigarettes Start date: 04/11/1949 Quit date: 04/11/1969 Years since quittin.2 Smokeless tobacco: Never Vaping Use Vaping status: Never Used Substance and Sexual Activity Alcohol use: Yes Comment: rarely Drug use: No Social Needs Financial Resource Strain: Low Risk (12/21/2023) Financial Resource Strain Do you have any trouble paying for your medications, or do you think you might in the future? (Adult - for ages 18 years and over): No Food Insecurity: No Food Insecurity (12/21/2023) Food Insecurity Worried About Running Out of Food in the Last Year: Never true Ran Out of Food in the Last Year: Never true Do you need food for this week? (Adult - for ages 18 years and over): No Transportation Needs: No Transportation Needs (12/21/2023) Transportation Needs Has lack of transportation kept you from medical appointments, meetings, work, or from getting things needed for daily living? Check all that apply. (Adult - for ages 18 years and over): No Social Connections: Socially Integrated (12/21/2023) Social Connections How often do you feel lonely or isolated from those around you? (Adult - for ages 18 years and over): Never Housing Stability: Low Risk (12/21/2023) Housing Stability Do you currently live in a snf or have no steady place to sleep at night? (Adult - for ages 18 years and over): No Are you homeless or worried that you might be in the future? (Adult - for ages 18 years and over): No Review of Systems Constitutional: Negative. Negative for chills and fever. HENT: Positive for hearing loss. Eyes: Negative. Respiratory: Negative. Negative for shortness of breath. Cardiovascular: Negative. Negative for chest pain, palpitations and leg swelling. Gastrointestinal: Negative. Negative for abdominal pain, blood in stool, constipation, diarrhea, nausea and vomiting. Endocrine: Negative. Genitourinary: Negative. Musculoskeletal: Negative. Skin: Negative. Negative for rash. Allergic/Immunologic: Negative. Neurological: Negative. Negative for syncope and light-headedness. Hematological: Negative. Psychiatric/Behavioral: Positive for confusion, dysphoric mood and sleep disturbance. Negative for self-injury and suicidal ideas. The patient is nervous/anxious. All other systems reviewed and are negative. Physical Exam BP 130/70 | Pulse 62 | Temp 96.7 °F (35.9 °C) (Tympanic) | Resp 20 | Ht 4' 11" (1.499 m) | Wt 125lb 3.2 oz (56.8 kg) | SpO2 95% | BMI 25.29 kg/m² | BSA 1.54 m² Physical Exam Vitals and nursing note reviewed. Constitutional: Appearance: Normal appearance. HENT: Head: Normocephalic and atraumatic. Right Ear: Tympanic membrane, ear canal and external ear normal. Left Ear: Tympanic membrane, ear canal and external ear normal. Nose: Nose normal. Mouth/Throat: Mouth: Mucous membranes are moist. Pharynx: Oropharynx is clear. Eyes: Extraocular Movements: Extraocular movements intact. Conjunctiva/sclera: Conjunctivae normal. Pupils: Pupils are equal, round, and reactive to light. Cardiovascular: Rate and Rhythm: Normal rate and regular rhythm. Heart sounds: Normal heart sounds. No murmur heard. Pulmonary: Effort: Pulmonary effort is normal. Breath sounds: Normal breath sounds. No wheezing, rhonchi or rales. Abdominal: General: Abdomen is flat. Bowel sounds are normal. Palpations: Abdomen is soft. Tenderness: There is no abdominal tenderness. There is no guarding or rebound. Musculoskeletal: General: Normal range of motion. Cervical back: Normal range of motion and neck supple. Skin: General: Skin is warm. Neurological: General: No focal deficit present. Mental Status: She is alert and oriented to person, place, and time. Psychiatric: Mood and Affect: Mood normal. Behavior: Behavior normal. Thought Content: Thought content normal. Judgment: Judgment normal. I have reviewed most recent labs BMP results Recent Labs Units 07/06/24 0823 11/29/23 0751 06/09/23 0748 SODIUM - [facility] mmol/L 138 139 141 POTASSIUM - [facility] mmol/L 4.1 4.3 5.3* CHLORIDE - [facility] mmol/L 99 102 102 CO2 - [facility] mmol/L 26 23 22 CREATININE - [facility] mg/dL 1.0 1.0 1.0 BUN - [facility] mg/dL 26* 31* 28* Lipid panel results Recent Labs Units 07/06/24 0823 11/29/23 0751 05/04/23 0746 08/18/22 0000 CHOLESTEROL - [facility] mg/dL 198 187 187 -- CHOLESTEROL-OUTSIDE LAB MG/DL -- -- -- 187 LDL (CALCULATED)-OUTSIDE LAB MG/DL -- -- -- 73 HDL CHOLESTEROL - [facility] mg/dL 114 112 100 -- HDL-OUTSIDE LAB MG/DL -- -- -- 107* TRIGLYCERIDES - [facility] mg/dL 43 40 44 -- TRIGLYCERIDES-OUTSIDE LAB MG/DL -- -- -- 36 CBC results Recent Labs Units 07/06/24 0823 11/29/23 0751 06/09/23 0748 WBC K/uL 13.48* 5.99 5.27 HGB g/dL 13.7 12.7 13.5 HCT % 42.8 39.1 42.0 PLT K/uL 215 222 227 HbA1c results Recent Labs Units 07/06/24 0823 11/29/23 0751 05/04/23 0746 HEMOGLOBIN A1C - [facility] % 7.0* 6.6* 6.5* TSH results Recent Labs Units 08/18/22 0000 TSH - OUTSIDE LAB UIU/ML 3.29 Vitamin D results No results for input(s): "25OHVITAMIND" in the last 27406 hours. Hepatic panel results Recent Labs Units 07/06/24 0823 11/29/23 0751 06/09/23 0748 PROTEIN - [facility] g/dL 7.0 6.9 7.2 BILIRUBIN, TOTAL - [facility] mg/dL 0.5 0.4 0.4 ALKALINE PHOSPHATASE - [facility] U/L 120 100 105 AST - [facility] U/L 27 29 44* ALT - [facility] U/L 24 24 26 Protein/cr ratio results No results for input(s): "PROCRRATIO" in the last 40833 hours. Assessment and Plan Leukocytosis, unspecified type Patient asymptomatic. Plan to repeat CBC in 1 month. - CBC WITH WBC DIFFERENTIAL; Future - HEMOGLOBIN A1C; Future - COMPREHENSIVE METABOLIC PANEL; Future - TSH WITH FREE T4 IF INDICATED; Future Mild cognitive impairment Continue to follow with Neurology. - HEMOGLOBIN A1C; Future - COMPREHENSIVE METABOLIC PANEL; Future - TSH WITH FREE T4 IF INDICATED; Future MDD (major depressive disorder), recurrent episode, moderate (HCC) Neurology treating, currently taking Lexapro. Has appointment in the near future. - HEMOGLOBIN A1C; Future - COMPREHENSIVE METABOLIC PANEL; Future - TSH WITH FREE T4 IF INDICATED; Future Type 2 diabetes mellitus with hemoglobin A1c goal of less than 7.0% (HCC) A1c overall stable. Continue current medical therapy. - HEMOGLOBIN A1C; Future - COMPREHENSIVE METABOLIC PANEL; Future - TSH WITH FREE T4 IF INDICATED; Future Diabetic peripheral neuropathy (HCC) Continue to follow with Podiatry. - HEMOGLOBIN A1C; Future - COMPREHENSIVE METABOLIC PANEL; Future - TSH WITH FREE T4 IF INDICATED; Future Primary hypertension Blood pressure well-controlled. Continue current medical therapy. - HEMOGLOBIN A1C; Future - COMPREHENSIVE METABOLIC PANEL; Future - TSH WITH FREE T4 IF INDICATED; Future Chronic kidney disease, stage 3a (HCC) Most recent lab work stable. - HEMOGLOBIN A1C; Future - COMPREHENSIVE METABOLIC PANEL; Future - TSH WITH FREE T4 IF INDICATED; Future Hyperlipidemia with target LDL less than 70 - HEMOGLOBIN A1C; Future - COMPREHENSIVE METABOLIC PANEL; Future - TSH WITH FREE T4 IF INDICATED; Future Gastroesophageal reflux disease without esophagitis Symptoms currently stable. - HEMOGLOBIN A1C; Future - COMPREHENSIVE METABOLIC PANEL; Future - TSH WITH FREE T4 IF INDICATED; Future History of basal cell carcinoma Continue to follow with Dermatology. - HEMOGLOBIN A1C; Future - COMPREHENSIVE METABOLIC PANEL; Future - TSH WITH FREE T4 IF INDICATED; Future Personal history of malignant neoplasm of breast Continue to follow with Hematology/Oncology. - HEMOGLOBIN A1C; Future - COMPREHENSIVE METABOLIC PANEL; Future - TSH WITH FREE T4 IF INDICATED; Future Wrap-Up Follow-up: Return in about 6 months (around 01/12/2025), or if symptoms worsen or fail to improve. |Check-out note: Please request dexa scan from [facility] - states she just had this a few months ago. Time: I spent a total of 30-39 minutes (exact time 32 mins) on the date of service in preparation, delivery, and documentation of the care provided to Lorne Borjas excluding any time spent in the performance of separately billed services. documented in this encounter Nursing Notes * Tish Vera CCMA - 07/13/2024 7:00 AM EDT Chief Complaint Patient presents with Return Visit No concerns at this time documented in this encounter Plan of Treatment Upcoming Encounters Date Type Department Care Team (Late st Contact Info) Description 01/29/2025 10:20 AM EDT Office Visit [facility] [address] [place] [address] Alfonzo Busch PA-C [address] [id number] Scheduled Orders Name Type Priority Associated Diagnoses Orde r Schedule CBC WITH WBC DIFFERENTIAL Lab Routine Leukocytosis, unspecified type Expected: 08/12/2024 (Approximate), Expires: 07/13/2025 HEMOGLOBIN A1C Lab Routine Leukocytosis, unspecified type Mild cognitive impairment MDD (major depressive disorder), recurrent episode, moderate (HCC) Type 2 diabetes mellitus with hemoglobin A1c goal of less than 7.0% (HCC) Diabetic peripheral neuropathy (HCC) Primary hypertension Chronic kidney disease, stage 3a (HCC) Hyperlipidemia with target LDL less than 70 Gastroesophageal reflux disease without esophagitis History of basal cell carcinoma Personal history of malignant neoplasm of breast Expected: 10/12/2024 (Approximate), Expires: 07/13/2025 COMPREHENSIVE METABOLIC PANEL Lab Routine Leukocytosis, unspecified type Mild cognitive impairment MDD (major depressive disorder), recurrent episode, moderate (HCC) Type 2 diabetes mellitus with hemoglobin A1c goal of less than 7.0% (HCC) Diabetic peripheral neuropathy (HCC) Primary hypertension Chronic kidney disease, stage 3a (HCC) Hyperlipidemia with target LDL less than 70 Gastroesophageal reflux disease without esophagitis History of basal cell carcinoma Personal history of malignant neoplasm of breast Expected: 10/12/2024 (Approximate), Expires: 07/13/2025 TSH WITH FREE T4 IF INDICATED Lab Routine Leukocytosis, unspecified type Mild cognitive impairment MDD (major depressive disorder), recurrent episode, moderate (HCC) Type 2 diabetes mellitus with hemoglobin A1c goal of less than 7.0% (HCC) Diabetic peripheral neuropathy (HCC) Primary hypertension Chronic kidney disease, stage 3a (HCC) Hyperlipidemia with target LDL less than 70 Gastroesophageal reflux disease without esophagitis History of basal cell carcinoma Personal history of malignant neoplasm of breast Expected: 10/12/2024 (Approximate), Expires: 07/13/2025 Health Maintenance Due Date Last Done Comments DXA Scan 1935 Pneumococcal Vaccine: 50+ Years (1 of 2 - PCV) 1954 Zoster Vaccines (3 of 3) 02/26/2018 01/01/2018, 12/11 Colonoscopy 12/10/2019 12/09/2014 COVID-19 Vaccine ( - season) 2024 02/10/2024, 01/12/2022, 12/29/2020, Additional history exists Diabetic Eye Exam 09/11/2024 09/12/2023, , 07/19/2022 HbA1c 01/06/2025 07/06/2024, 11/10, 05/04/2023, Additional history exists Adult Wellness Visit 03/15/2025 03/15/2024 Depression Screening 03/15/2025 03/15/2024, 03/15/2024, 12/21/2023 Diabetic Foot Exam 03/15/2025 03/15/2024 Albumin/Creatinine Ratio 07/06/2025 025, 05/04/2023, 08/18/2022, Additional history exists CKD HGB USE SMARTSET 45122 07/06/202507/06, 07/06/2024, 11/29/2023, Additional history exists CKD PHOS USE SMARTSET 96086 07/06/2025 07/06/2024, 0 11/29/2023 DTap/Tdap Vaccines (3 - Td or Tdap) [...] as of this encounter Visit Diagnoses Diagnosis Leukocytosis, unspecified type- Primary Mild cognitive impairment Mild cognitive impairment, so stated MDD (major depressive disorder), recurrent episode, moderate (HCC) Major depressive disorder, recurrent episode, moderate Type 2 diabetes mellitus with hemoglobin A1c goal of less than 7.0% (HCC) Diabetic peripheral neuropathy (HCC) Type II or unspecified type diabetes mellitus with neurological manifestations, not stated as uncontrolled Primary hypertension Unspecified essential hypertension Chronic kidney disease, stage 3a (HCC) Hyperlipidemia with target LDL less than 70 Other and unspecified hyperlipidemia Gastroesophageal reflux disease without esophagitis Esophageal reflux History of basal cell carcinoma Personal history of other malignant neoplasm of skin Personal history of malignant neoplasm of breast documented in this encounter Care Teams Classifier Tender Relationship Specialty Start Date End Date Andreea Alcala DO [address] [facility] [place] [id number] PCP - General Family Medicine 12/08/22 documented as of this encounter
--- OUTSIDE RECORDS SUMMARY | 2024-08-03 20:43 | External Medical Summary ---
Author Name Unknown Address Unknown Organization [id number]:[facility] [place] [address] [place] [address] Laboratory Report Ordering Provider Test Date Status ALESSANDRAHEYDI 07/06/2024 08:23:01 Final Normal: <30 mg/g creatinine< br/>High: 30-300 mg/g creatinine
Very High: >300 mg/g creatinine
Nephrotic: >2200 mg/g creatinine Observation Date Value Abnormality Reference (Units ) Status Albumin, Urine 07/06/2024 08:23:01 2.00 (mg/dL) Final Creatinine, Urine 07/06/2024 08:23:01 56 (mg/dL) Final Albumin/Creatinine [Mass Ratio] in Urine 07/06/2024 08:23:01 36 Above high normal <30 (mg/g Creat) Final Performing Location [facility] [place] [address] [place] [address]
--- OUTSIDE RECORDS SUMMARY | 2024-08-03 20:43 | External Medical Summary | Summary of Care ---
Author Name Unknown Organization [facility] Address [address] [facility] [place] [address] Phone [phone] Care Team Providers Care Client Representative Name Role Phone Andreea Alcala DO Primary Care Provider +1- [phone] Reason for Visit * Reason Comments eRx-Medication Refill Encounter Details Date Type Department Care Team (Late st Contact Info) Description 06/06/2024 Refill Family [facility] [address] [facility] [place] [address] Andreea Alcala DO [address] [place] [address] Type 2 diabetes mellitus with hemoglobin A1c goal of less than 7.0% ([facility]) Allergies Active Allergy Reactions Criticality Noted Date Comments Codeine 12/08/2022 Mind alterting Tramadol 05/13/2023 Hydrocodone-Acetaminophen 03/14/2014 documented as of this encounter (statuses as of 06/07/2024) Medications CENTRUM SILVER OR TABS one pill each day 10/31/19 03 Active Letrozole 2.5 MG Oral Tablet (Femara) [...] 16 mg by mouth in the morning. 11/11/19 23 Active Vitamin D3 1000 UNIT Oral Capsule Take 1 Capful by mouth every evening. Active amLODIPine Besylate 2.5 MG Oral Tablet (Norvasc)Indicat ions:Primary hypertension Take 1 Tablet by mouth in the morning. 90 Tablet 3 12/21/19 24 Active metFORMIN HCl 500 MG Oral Tablet (Glucophage)Dawna cations:Type 2 diabetes mellitus with hemoglobin A1c goal of less than 7.0% (HCC) Take 1 Tablet by mouth 2 times a day with morning and evening meals. 180 Tablet 3 12/21/19 24 Active Escitalopram Oxalate 10 MG Oral Tablet (Lexapro) Take 1 Tablet by mouth in the morning. 02/16/20 24 Active OneTouch Ultra Test In Vitro Strip (Glucose Blood)Indication s:Type 2 diabetes mellitus with hemoglobin A1c goal of less than 7.0% (HCC) Test twice a day 200 Strip 3 03/22/20 24 Active Simvastatin 10 MG Oral Tablet (Zocor)Indicatio ns:Type 2 diabetes mellitus with hemoglobin A1c goal of less than 7.0% (HCC) TAKE 1 TABLET AT BEDTIME 90 Tablet 2 06/07/19 25 Active Simvastatin 10 MG Oral Tablet (Zocor)Indicatio ns:Type 2 diabetes mellitus with hemoglobin A1c goal of less than 7.0% (HCC) Take 1 Tablet by mouth at bedtime. 90 Tablet 3 05/13/19 24 025 Discontinued documented as of this encounter (statuses as of 06/07/2024) Active Problems Problem Noted Date Diagnosed Date [...] as of this encounter (statuses as of 06/07/2024) Resolved Problems Problem Noted Date Diagnosed Date [...] as of this encounter (statuses as of 06/07/2024) Immunizations Name Administration Dates Next Due COVID-19 mRNA, LNP-s, No Pre serve, 2-Dose Series ([employer]) 12/29/2020,04/29/2020 COVID-19, MRNA-LNP, PF, 30 M CG/0.3 mL, 12 YRS AND ABOVE, IM ([facility]) 02/10/2024 Covid-19, Mrna, Lnp-s, Pf, B ivalent, [...] encounter Miscellaneous Notes * Telephone Encounter - Ana Duncan [facility] - 06/07/2024 2:09 PM ESTSigned Prescriptions: Disp Refills Simvastatin 10 MG Oral Tablet (Zocor) 90 Tab*2 Sig: TAKE 1 TABLET AT BEDTIMEAuthorizing Provider: ANDREEA ALCALA User: ANA DUNCAN documented in this encounter Plan of Treatment Upcoming Encounters Date Type Department Care Team (Late st Contact Info) Description 07/13/2024 7:40 AM EDT Office Visit Family [facility] [address] [place] [address] Alfonzo Busch PA-C [address] [place] [address] Health Maintenance Due Date Last Done Comments [...] 09/12/2023, , 07/19/2022 CKD HGB USE SMARTSET 38876 11/28/202411/28, 11/29/2023, 06/09/2023, Additional history exists CKD PHOS USE SMARTSET 75476 11/28/2024 11/29/2023 Adult Wellness Visit 03/15/2025 03/15/2024 [...] A1c goal of less than 7.0% (HCC) documented in this encounter Care Teams Client Representative Relationship Specialty Start Date End Date Andreea Alcala DO [address] [facility] [place] [address] PCP - General Family Medicine 12/08/22 documented as of this encounter
--- OUTSIDE RECORDS SUMMARY | 2024-08-03 20:43 | External Medical Summary ---
Author Name Unknown Address Unknown Organization [id number]:LABORATORY [facility] - [address] [facility] [place] [address] Laboratory Report Ordering Provider Test Date Status HEYDI APARICIO 07/06/2024 08:23:01 Final Observation Date Value Abnormality Reference (Units ) Status BUN 07/06/2024 08:23:01 26 Above high normal 6-20 (mg/dL) Final Creatinine 07/06/2024 08:23:01 1.0 0.5-1.0 (mg/dL) Final Glomerular filtration rate/1.73 sq M.predicted [Volume Rate/Area] in Serum, Plasma or Blood by Creatinine-based formula (CKD-EPI) 07/06/2024 08:23:01 58 Below low normal >=60 (mL/min) Final eGFR is calculated based on the CKD-EPI 2020 equation. Sodium 07/06/2024 08:23:01 138 135-146 (m mol/L) Final Potassium 07/06/2024 08:23:01 4.1 3.5-5.1 (m mol/L) Final Cl 07/06/2024 08:23:01 99 98-107 (mm ol/L) Final CO2 07/06/2024 08:23:01 26 22-32 (mmo l/L) Final Anion gap 07/06/2024 08:23:01 13 7-15 (mmol /L) Final Glucose 07/06/2024 08:23:01 154 Above high normal 70 -120 (mg/dL) Final Albumin 07/06/2024 08:23:01 4.4 3.8-5.0 (g /dL) Final AST (Aspartate aminotransferase) 07/06/2024 08:23:01 27 10-35 (U/L) Fin al Alk Phos 07/06/2024 08:23:01 120 35-130 (U/ L) Final Bilirubin, Total 07/06/2024 08:23:01 0.5 <=1 .2 (mg/dL) Final Calcium 07/06/2024 08:23:01 9.5 8.4-10.2 ( mg/dL) Final Protein 07/06/2024 08:23:01 7.0 6.0-8.3 (g /dL) Final ALT (Alanine aminotransferase) 07/06/2024 08:23:01 24 10-35 (U/L) Corey cueto Performing Location LABORATORY [facility] - [facility] [address] [facility] [address]
--- OUTSIDE RECORDS SUMMARY | 2024-08-03 20:43 | External Medical Summary ---
Author Name Unknown Address Unknown Organization [id number]:LABORATORY [facility] [place] - [address] [place] [address] Laboratory Report Ordering Provider Test Date Status ALESSANDRASOLIZ 07/06/2024 08:23:01 Final Observation Date Value Abnormality Reference (Units ) Status SYNC LEUKOCYTES IN BLOOD BY AUTOMATED COUNT 07/06/2024 08:23:01 13.48 Above high normal 4.00-10.80 (K/uL) Final Segs 07/06/2024 08:23:01 83.3 Above high normal 40.0-75.0 (%) Final Lymphs % 07/06/2024 08:23:01 7.5 Below low normal 18.0-42.0 (%) Final Monos 07/06/2024 08:23:01 7.3 1.0-11.0 (%) Final Eosinophils 07/06/2024 08:23:01 1.1 0.0-6.0 (%) Final Basos 07/06/2024 08:23:01 0.4 0.0-2.0 (%) Final Immature Granulocyte, Percent 07/06/2024 08:23:01 0.4 0.0-2.0 (%) Final Absolute Segs 07/06/2024 08:23:01 11.22 Above high normal 1.80-7.70 (K/uL) Final Lymphs, absolute 07/06/2024 08:23:01 1.01 1.00-4.80 (K/ul) Final Monos, Abs 07/06/2024 08:23:01 0.99 0.00-1.10 (K/uL) Final Eos, Abs 07/06/2024 08:23:01 0.15 0.00-0.70 (K/uL) Final Basos, Abs 07/06/2024 08:23:01 0.06 0.00-0.20 (K/uL) Final Immature Granulocytes, Number 07/06/2024 08:23:01 0.05 0.00-0.20 (K/uL) Final Performing Location LABORATORY [facility] [place] - [facility] [address] [facility] [address]
--- OUTSIDE RECORDS SUMMARY | 2024-08-03 20:43 | External Medical Summary ---
Author Name Unknown Address Unknown Organization [id number]:LABORATORY [facility] [place] - [address] [facility] [place] [address] Laboratory Report Ordering Provider Test Date Status ALESSANDRAHEYDI 07/06/2024 08:23:01 Final Observation Date Value Abnormality Reference (Units ) Status Triglyceride 07/06/2024 08:23:01 43 <=174 ( mg/dL) Final Triglyceride Reference Range s (mg/dL):
<150 Acceptable
150-174 Borderline high
175-499 High
>=500 Very high Cholesterol 07/06/2024 08:23:01 198 <200 (mg /dL) Final Total Cholesterol Reference Ranges (mg/dL):
<200 Desirable
200-239 Borderline high
>=240 High HDL 07/06/2024 08:23:01 114 >49 (mg/dL ) Final HDL Cholesterol Reference Ra nges (mg/dL):
>=60 High (Desirable)
<50 Low (Undesirable) For Females
<40 Low (Undesirable) For Males NON-HDL CHOLESTEROL 07/06/2024 08:23:01 84 <=159 (mg/dL) Final Non-HDL Cholesterol Referenc e Range (mg/dL):
<100 Target level for high risk ASCVD patient
<130 Optimal for general population
130-159 Near optimal for general population
160-189 Borderline High
190-219 High
>=220 Very High LDL, (calculated) 07/06/2024 08:23:01 75 <= 129 (mg/dL) Final LDL Cholesterol Reference Ra nges (mg/dL):
<70 Target level for high risk ASCVD patient
<100 Optimal for general population
100-129 Near optimal for general population
130-159 Borderline high
160-189 High
>=190 Very high
Patient has high LDL cholesterol. Consider screening for Familial Hypercholesterolemia. Performing Location LABORATORY [facility] [place] - [address] [facility] [address]
--- OUTSIDE RECORDS SUMMARY | 2024-08-03 20:43 | External Medical Summary ---
Author Name Unknown Address Unknown Organization K01:LABORATORY [facility] - [address] [place] [address] Laboratory Report Ordering Provider Test Date Status HEYDI APARICIO 07/06/2024 08:23:01 Final Observation Date Value Abnormality Reference (Units ) Status Phosphate 07/06/2024 08:23:01 3.7 2.5-4.8 (m g/dL) Final Performing Location LABORATORY [facility] - [address] [place] [address]
--- OUTSIDE RECORDS SUMMARY | 2024-08-03 20:43 | External Medical Summary | Summary of Care ---
Author Name Unknown Organization [facility] Address [address] [facility] [place] [address] Phone [phone] Care Team Providers Care Neurology Teacher Name Role Phone Andreea Alcala DO Primary Care Provider +1- [phone] Reason for Visit * Reason Comments Outpatient Testing Encounter Details Date Type Department Care Team (Late st Contact Info) Description 07/06/2024 8:20 AM EDT Laboratory Laboratory [place] [facility] [place] [address] Carla [facility] [place] [address] [place] [address] Type 2 diabetes mellitus with hemoglobin A1c goal of less than 7.0% ([facility]); Chronic kidney disease, stage 3a ([facility]); Hyperlipidemia, unspecified hyperlipidemia type; Primary hypertension Allergies Active Allergy Reactions Criticality Noted Date Comments Codeine 12/08/2022 Mind alterting Tramadol 05/13/2023 Hydrocodone-Acetaminophen 03/14/2014 documented as of this encounter (statuses as of 07/06/2024) Medications CENTRUM SILVER OR TABS one pill [...] as of this encounter (statuses as of 07/06/2024) Active Problems Problem Noted Date Diagnosed Date [...] as of this encounter (statuses as of 07/06/2024) Resolved Problems Problem Noted Date Diagnosed Date [...] as of this encounter (statuses as of 07/06/2024) Immunizations Name Administration Dates Next Due COVID-19 mRNA, LNP-s, No Pre serve, 2-Dose Series ([employer]) 12/29/2020,04/29/2020 COVID-19, MRNA-LNP, PF, 30 M CG/0.3 mL, 12 YRS AND ABOVE, IM ([email or web address] 02/10/2024 Covid-19, Mrna, Lnp-s, Pf, B ivalent, 30 Mcg, IM, 12 yrs and above ([employer]) 01/12/2022 Hepatitis B, 0-19 yrs 04/13/1990,11/14/1989,05/1989 RSV [...] AM EDT documented as of this encounter Plan of Treatment Upcoming Encounters Date Type Department Care Team (Late st Contact Info) Description 07/13/2024 7:40 AM EDT Office Visit Family Practice [address] [place] [address] Alfonzo Busch PA-C [address] [place] [address] Pending Results Name Type Priority Associated Diagnoses Date /Time HEMOGLOBIN A1C Lab Routine Type 2 diabetes mellitus with hemoglobin A1c goal of less than 7.0% (HCC) Chronic kidney disease, stage 3a (HCC) 07/06/2024 8:23 AM EDT ALBUMIN / CREATININE RATIO, URINE Lab Routine Type 2 diabetes mellitus with hemoglobin A1c goal of less than 7.0% (HCC) Chronic kidney disease, stage 3a (HCC) 07/06/2024 8:23 AM EDT PHOSPHORUS Lab Routine Chronic kidney disease, stage 3a (HCC) 07/06/2024 8:23 AM EDT LIPID PANEL WITH DIRECT LDL IF TG IS HIGH Lab Routine Hyperlipidemia, unspecified hyperlipidemia type 07/06/2024 8:23 AM EDT COMPREHENSIVE METABOLIC PANEL Lab Routine Type 2 diabetes mellitus with hemoglobin A1c goal of less than 7.0% (HCC) Primary hypertension Chronic kidney disease, stage 3a (HCC) 07/06/2024 8:23 AM EDT CBC WITH WBC DIFFERENTIAL Lab Routine Type 2 diabetes mellitus with hemoglobin A1c goal of less than 7.0% (HCC) Primary hypertension Chronic kidney disease, stage 3a (HCC) 07/06/2024 8:23 AM EDT CBC Lab Routine Type 2 diabetes mellitus with hemoglobin A1c goal of less than 7.0% (HCC) Primary hypertension Chronic kidney disease, stage 3a (HCC) 07/06/2024 8:23 AM EDT DIFFERENTIAL, AUTOMATED Lab Routine Type 2 diabetes mellitus with hemoglobin A1c goal of less than 7.0% (HCC) Primary hypertension Chronic kidney disease, stage 3a (HCC) 07/06/2024 8:23 AM EDT Health Maintenance Due Date Last Done Comments [...] 09/12/2023, , 07/19/2022 CKD HGB USE SMARTSET 29285 11/28/202411/28, 11/29/2023, 06/09/2023, Additional history exists CKD PHOS USE SMARTSET 41637 11/28/2024 11/29/2023 Adult Wellness Visit 03/15/2025 03/15/2024 [...] (HCC) Chronic kidney disease, stage 3a (HCC) Hyperlipidemia, unspecified hyperlipidemia type Primary hypertension Unspecified essential hypertension documented in this encounter Care Teams Neurology Teacher Relationship Specialty Start Date End Date Andreea Alcala DO [address] [facility] [place] [address] PCP - General Family Medicine 12/08/22 documented as of this encounter
--- OUTSIDE RECORDS SUMMARY | 2024-08-03 20:43 | External Medical Summary ---
Author Name Unknown Address Unknown Organization K01:LAB[facility]ATORY [facility] - [address] [address] Laboratory Report Ordering Provider Test Date Status HEYDI APARICIO 07/06/2024 08:23:01 Final Observation Date Value Abnormality Reference (Units ) Status HbA1C 07/06/2024 08:23:01 7.0 Above high normal 4. 0-5.6 (%) Final The use of HbA1c to monitor glycemic status is based on normal hemoglobin and HbA composition. This test should not be used in patients with abnormal hemoglobin that affects the half life of the red blood cell or the in vivo glycation rates. Glucose, estimated average 07/06/2024 08:23:01 154 Above high normal <126 (mg/dL) Corey cueto Performing Location LABORATORY [facility] - [address] [place] [address]
--- OUTSIDE RECORDS SUMMARY | 2024-08-03 20:43 | External Medical Summary | Summary of Care ---
Author Name Unknown Organization [facility] Address [address] [facility] [place] [address] Phone [phone] Care Team Providers Care Realtime Reporter Name Role Phone Andreea Alcala DO Primary Care Provider +1- [phone] Reason for Visit * Reason Onset Date Comments Order Request 07/05/2024 Labs Encounter Details Date Type Department Care Team (Late st Contact Info) Description 07/05/2024 Telephone Family Practice [address] [place] [address] Andreea Alcala DO [address] [place] [address] Order Request (Labs) Allergies [...] mRNA, LNP-s, No Pre serve, 2-Dose Series ([email or web address]) 12/29/2020,04/29/2020 COVID-19, MRNA-LNP, PF, 30 M CG/0.3 [...] Description 07/13/2024 7:40 AM EDT [facility] Visit [facility] [address] [place] [address] Alfonzo Busch PA-C [address] [place] [id number] Scheduled Orders Name Type Priority Associated Diagnoses [...] 09/12/2023, , 07/19/2022 CKD HGB USE SMARTSET 10809 11/28/202411/28, 11/29/2023, 06/09/2023, Additional history exists CKD PHOS USE SMARTSET 81450 11/28/2024 11/29/2023 Adult Wellness Visit 03/15/2025 03/15/2024 [...] (HCC) documented in this encounter Care Teams Realtime Reporter Relationship Specialty Start Date End Date Andreea Alcala DO [address] [facility] [place] [id number] PCP - General Family Medicine 12/08/22 documented as of this encounter
--- OUTSIDE RECORDS SUMMARY | 2024-08-03 20:43 | External Medical Summary ---
Author Name Unknown Address Unknown Organization K01:[facility] [place] - [facility] [address] [facility] [address] [place] [address] Laboratory Report Ordering Provider Test Date Status HEYDI APARICIO 07/06/2024 08:23:01 Final Observation Date Value Abnormality Reference (Units ) Status WBC, Total 07/06/2024 08:23:01 13.48 Above high normal 4.00-10.80 (K/uL) Final RBC 07/06/2024 08:23:01 4.52 3.85-5.15 (M/uL) Final Hemoglobin 07/06/2024 08:23:01 13.7 12.0-15.3 (g/dL) Final HCT 07/06/2024 08:23:01 42.8 36.0-45.2 (%) Final MCV 07/06/2024 08:23:01 94.7 81.5-97.5 (fL) Final MCH 07/06/2024 08:23:01 30.3 27.0-34.0 (pg) Final MCHC 07/06/2024 08:23:01 32.0 32.0-36.0 (g/dL) Final RDW 07/06/2024 08:23:01 14.4 11.5-15.5 (%) Final Platelets 07/06/2024 08:23:01 215 140-400 (K/uL) Final MPV 07/06/2024 08:23:01 11.2 6.6-11.1 (fL) Final Nucleated erythrocytes/100 leukocytes [Ratio] in Blood by Automated count 07/06/2024 08:23:01 0 <=0 (/100 WBCs) Final Performing Location LAB[facility]ORY [facility] - [address] [place] [address]
--- OUTSIDE RECORDS SUMMARY | 2024-08-03 20:43 | External Medical Summary | Summary of Care ---
Author Name Unknown Organization [facility] Address [address] [facility] [place] [address] Phone [phone] Care Team Providers Care A And P Technician Name Role Phone Andreea Alcala DO Primary Care Provider +1- [phone] Reason for Visit * Reason Onset Date Comments Order Request 07/05/2024 Labs Encounter Details Date Type Department Care Team (Late st Contact Info) Description 07/05/2024 Telephone Family Practice [address] [place] [place] [address] Andreea Alcala DO [address] [place] [address] Order Request (Labs) Allergies [...] mRNA, LNP-s, No Pre serve, 2-Dose Series ([employer]) 12/29/2020,04/29/2020 COVID-19, MRNA-LNP, PF, 30 M CG/0.3 [...] [facility] Visit [facility] [address] [place] [address] Alfonzo Busch PA-C [address] [place] [phone] Scheduled Orders Name Type Priority Associated Diagnoses [...] 09/12/2023, , 07/19/2022 CKD HGB USE SMARTSET 66149 11/28/202411/28, 11/29/2023, 06/09/2023, Additional history exists CKD PHOS USE SMARTSET 04490 11/28/2024 11/29/2023 Adult Wellness Visit 03/15/2025 03/15/2024 [...] (HCC) documented in this encounter Care Teams A And P Technician Relationship Specialty Start Date End Date Andreea Alcala DO [address] [facility] [place] [id number] PCP - General Family Medicine 12/08/22 documented as of this encounter
[2024-08-03] MEDS: INSULIN ASPART PER UNIT CHARGE SC SCH (21:18)
[2024-08-03] MEDS: ESCITALOPRAM OXALATE 10 MG TAB PO SCH (21:25)
[2024-08-03] MEDS: SIMVASTATIN 10 MG TAB PO SCH (21:25)
[2024-08-03] MEDS: HEPARIN SOD 5,000 UNIT/0.5 ML VIAL SQ SCH (21:27)
[2024-08-04] MEDS: MELATONIN 3 MG TAB PO PRN (02:52)
[2024-08-04 07:08] LABS: Hematocrit (blood only) 34.2 % (37.0-47.0); Hemoglobin 11.4 g/dl (12.0-16.0); Mean Corpuscular Hemoglobin 30.3 pg (25.0-34.0); Mean Corpuscular Hgb Conc 33.3 g/dL (32.0-36.0); Mean Platelet Volume 10.2 fL (9.4-12.4); Platelet Count 194 K/uL (130-400); RDW Coefficient of Variation 14.5 % (11.5-14.5); RDW Standard Deviation 48.4 fL (36.4-46.3); Red Blood Count 3.76 M/uL (4.20-5.40); White Blood Count 7.04 K/ul (4.8-10.8)
[2024-08-04 07:28] LABS: BUN Creatinine Ratio 28.9 (10-20); Calcium 8.6 mg/dl (8.6-10.3); Creatinine Clr Calc Pharmacy 33.8 ml/min; Potassium 3.8 mmol/L (3.5-5.1)
[2024-08-04] MEDS: CHOLECALCIFEROL 25 MCG (1000 UNITS) TAB PO SCH (09:37)
[2024-08-04] MEDS: LETROZOLE 2.5 MG TAB PO SCH (09:37)
[2024-08-04] MEDS: amLODIPine BESYLATE 5 MG TAB PO SCH (09:37)
[2024-08-04] MEDS: VIBEGRON 75 MG TAB PO SCH (09:37)
--- NOTE | 2024-08-04 13:29 | Hospitalist Progress Note ---
Date of Service August 04, 2024 Assessment & Plan (1) Acute confusion: (2) Acute UTI: (3) Acute dehydration: (4) Mild cognitive impairment: (5) MDD (major depressive disorder): (6) Diabetes mellitus type 2 in nonobese: (7) Hypertension: (8) Hyperlipidemia: Plan 89 yo F w/ mild cognitive disorder, MDD, DMII with neuropathy, HTN, HLD, CKD III, GERD, history of bilateral breast cancer who presented to the ED with acute confusion. Acute confusion Patient with underlying mild cognitive impairment with x1 month history of confusion but acutely worse on admission Extensive workup in the ED: labs unremarkable, EKG with NSR, negative head CT, negative CXR, normal VBG, negative ammonia, normal TSH UA c/w infection, follow urine cultx - cont. empiric Rocephin for now Acute UTI UA +leuk esterase, WBC, bacteria Patient is asymptomatic, afebrile, no leukocytosis, vitals stable Obtain blood cultures Follow urine culture Continue ceftriaxone q24hr Acute dehydration Received 1L NSS in ED Continue MIVF and diet, -> pt will need speech eval, as had aspiration episode today PT/OT consults Mild cognitive impairment Patient follows with [facility] Previously tried donepezil, memantine, galantamine Has follow up appointment with Dr Gomez in August MDD Continue lexapro per home dosing DMII On metformin at home- holding while inpt SSI while inpt Hypertension Continue home amlodipine Hyperlipidemia Continue home simvastatin History of breast cancer Follows with [facility] every 6 months Continue home letrozole DVT Prophylaxis: SQ Heparin Code Status: DNR/DNI - As per discussion at bedside with the patient. PCP: Andreea Alcala Disposition: med/surg tele Admission and Anticipated Discharge Date Admission Date: August 03, 2024 Subjective Pt seen in follow up of confusion, UTI Currently sitting up in bed, was eating lunch Pt is awake, alert, able to say who she is and where she is but does not recall what happened yesterday Unfortunately she had a chocking episode as she was eating peaches just now, she was able to cough it up, per RN pt saturating 96& on RA, pt continues to talk w/o difficulty but still has some phlegm that she is occasionally coughing up. speech therapy will be consulted. Pt says it happens sometimes at home. Diet changed to soft-bite sized for now. Review of Systems Review of Systems: All systems reviewed & are unremarkable except as noted in Subjective Physical Exam Physical Exam: General/Psych: WD/WN, elderly F in NAD Head: normocephalic, atraumatic Eyes: normal inspection, PERRL, conjunctivae pink, anicteric sclerae ENT: external ear and nose normal Neck: supple Respiratory: normal respiratory effort, lungs clear to auscultation, no accessory muscle use Cardiovascular: regular rate and rhythm, no murmur Extremities: no LE edema, moves extremities, R knee and lower leg ecchymosis d/t traumatic fall Abdomen/GI: normal bowel sounds, soft, nontender Neurologic/MSK: Awake, alert, answers appropriately, speech fluent, moves all extremities Skin: warm, dry, + bruising over right knee and mendieta Results & Data Results & Data Vital Signs (Past 12 Hours) Vital Signs Temp Pulse Pulse Resp BP BP Pulse Ox 08/04/24 11:30 36.4 C L 59 L 20 143/74 H 95 08/04/24 07:52 36.5 C 67 18 163/80 H 95 08/04/24 06:45 52 L 08/04/24 02:56 65 168/74 H 08/04/24 02:20 36.5 C 50 L 16 170/84 H 93 O2 Del Method 08/04/24 11:30 Room Air 08/04/24 07:52 Room Air 08/04/24 06:45 08/04/24 02:56 08/04/24 02:20 Room Air Laboratory Results 08/04/24 08/04/24 08/04/24 Range/Units 11:53 08:17 06:19 WBC 7.04 (4.8-10.8) K/ul RBC 3.76 L (4.20-5.40) M/uL Hgb 11.4 L (12.0-16.0) g/dl Hct 34.2 L (37.0-47.0) % MCV 91.0 (80.0-100.0) fL MCH 30.3 (25.0-34.0) pg MCHC 33.3 (32.0-36.0) g/dL RDW Std Deviation 48.4 H (36.4-46.3) fL RDW Coeff of Joel 14.5 (11.5-14.5) % Plt Count 194 (130-400) K/uL MPV 10.2 (9.4-12.4) fL Immature Gran % (Auto) % Neut % (Auto) % Lymph % (Auto) % [place] % (Auto) % Eos % (Auto) % Baso % (Auto) % Neut # (Auto) (1.40-6.50) K/uL Lymph # (Auto) (1.20-3.40) K/uL [place] # (Auto) (0.11-0.59) K/uL Eos # (Auto) (0.00-0.50) K/uL Baso # (Auto) (0.00-0.20) K/uL Immature Gran # (Auto) (0.01-0.20) K/uL VBG pH (7.36-7.41) VBG pCO2 (38-50) mmHg VBG pO2 mmHg VBG HCO3 mmol/L VBG O2 Saturation % VBG Base Excess mEq/L Sodium 137 (136-145) mmol/L Potassium 3.8 Chloride 101 (98-107) mmol/L Carbon Dioxide 31 (21-32) mmol/L Anion Gap 5 (3-11) BUN 26 H (6-23) mg/dl Creatinine 0.90 (0.6-1.2) mg/dl Est Cr Clr Drug Dosing 33.8 ml/min eGFR 61.87 BUN/Creatinine Ratio 28.9 H (10-20) Glucose 120 H (70-99(Fasting)) mg/dl POC Glucose 125 H 125 H (70-99) mg/dl Calcium 8.6 (8.6-10.3) mg/dl Magnesium (1.7-2.4) mg/dl Total Bilirubin (0.2-1.0) mg/dl AST ALT (7-52) U/L Alkaline Phosphatase (34-104) U/L Ammonia (18-72) umol/L Total Protein (6.0-8.3) gm/dl Albumin (3.4-5.0) gm/dl Globulin (2.5-4.0) gm/dl Albumin/Globulin Ratio (0.9-2) TSH (0.300-4.500) uIu/ml Urine Color Urine Appearance (Clear) Urine pH (4.5-7.5) Ur Specific Glennie (1.000-1.030) Urine Protein (Negative) Urine Glucose (UA) (Negative) Urine Ketones (Negative) Urine Blood (Negative) Urine Nitrite (Negative) Urine Bilirubin (Negative) Urine Urobilinogen (Negative) Ur Leukocyte Esterase (Negative) Urine WBC (Auto) (0-5) /hpf Urine RBC (Auto) (0-2) /hpf U Hyaline Cast (Auto) (0-2) /lpf U Epithel Cells (Auto) (0-2) /hpf Urine Bacteria (Auto) (None Seen) 08/03/24 08/03/24 08/03/24 Range/Units 21:00 18:50 15:30 WBC (4.8-10.8) K/ul RBC (4.20-5.40) M/uL Hgb (12.0-16.0) g/dl Hct (37.0-47.0) % MCV (80.0-100.0) fL MCH (25.0-34.0) pg MCHC (32.0-36.0) g/dL RDW Std Deviation (36.4-46.3) fL RDW Coeff of Joel (11.5-14.5) % Plt Count (130-400) K/uL MPV (9.4-12.4) fL Immature Gran % (Auto) % Neut % (Auto) % Lymph % (Auto) % [place] % (Auto) % Eos % (Auto) % Baso % (Auto) % Neut # (Auto) (1.40-6.50) K/uL Lymph # (Auto) (1.20-3.40) K/uL [place] # (Auto) (0.11-0.59) K/uL Eos # (Auto) (0.00-0.50) K/uL Baso # (Auto) (0.00-0.20) K/uL Immature Gran # (Auto) (0.01-0.20) K/uL VBG pH (7.36-7.41) VBG pCO2 (38-50) mmHg VBG pO2 mmHg VBG HCO3 mmol/L VBG O2 Saturation % VBG Base Excess mEq/L Sodium (136-145) mmol/L Potassium Chloride (98-107) mmol/L Carbon Dioxide (21-32) mmol/L Anion Gap (3-11) BUN (6-23) mg/dl Creatinine (0.6-1.2) mg/dl Est Cr Clr Drug Dosing ml/min eGFR BUN/Creatinine Ratio (10-20) Glucose (70-99(Fasting)) mg/dl POC Glucose 156 H 94 (70-99) mg/dl Calcium (8.6-10.3) mg/dl Magnesium (1.7-2.4) mg/dl Total Bilirubin (0.2-1.0) mg/dl AST ALT (7-52) U/L Alkaline Phosphatase (34-104) U/L Ammonia (18-72) umol/L Total Protein (6.0-8.3) gm/dl Albumin (3.4-5.0) gm/dl Globulin (2.5-4.0) gm/dl Albumin/Globulin Ratio (0.9-2) TSH (0.300-4.500) uIu/ml Urine Color Yellow Urine Appearance Clear (Clear) Urine pH 6.0 (4.5-7.5) Ur Specific Glennie 1.020 (1.000-1.030) Urine Protein Negative (Negative) Urine Glucose (UA) Negative (Negative) Urine Ketones Trace H (Negative) Urine Blood Negative (Negative) Urine Nitrite Negative (Negative) Urine Bilirubin Negative (Negative) Urine Urobilinogen Negative (Negative) Ur Leukocyte Esterase 1+ H (Negative) Urine WBC (Auto) 11-20 H (0-5) /hpf Urine RBC (Auto) 0-2 (0-2) /hpf U Hyaline Cast (Auto) 0-2 (0-2) /lpf U Epithel Cells (Auto) 3-5 H (0-2) /hpf Urine Bacteria (Auto) 4+ H (None Seen) 08/03/24 08/03/24 Range/Units 14:38 13:25 WBC 6.34 (4.8-10.8) K/ul RBC 4.12 L (4.20-5.40) M/uL Hgb 12.6 (12.0-16.0) g/dl Hct 37.8 (37.0-47.0) % MCV 91.7 (80.0-100.0) fL MCH 30.6 (25.0-34.0) pg MCHC 33.3 (32.0-36.0) g/dL RDW Std Deviation 49.4 H (36.4-46.3) fL RDW Coeff of Joel 14.7 H (11.5-14.5) % Plt Count 209 (130-400) K/uL MPV 10.5 (9.4-12.4) fL Immature Gran % (Auto) 0.2 % Neut % (Auto) 68.4 % Lymph % (Auto) 18.3 % [place] % (Auto) 8.2 % Eos % (Auto) 3.8 % Baso % (Auto) 1.1 % Neut # (Auto) 4.34 (1.40-6.50) K/uL Lymph # (Auto) 1.16 L (1.20-3.40) K/uL [place] # (Auto) 0.52 (0.11-0.59) K/uL Eos # (Auto) 0.24 (0.00-0.50) K/uL Baso # (Auto) 0.07 (0.00-0.20) K/uL Immature Gran # (Auto) 0.01 (0.01-0.20) K/uL VBG pH 7.43 H (7.36-7.41) VBG pCO2 38 (38-50) mmHg VBG pO2 136 mmHg VBG HCO3 25 mmol/L VBG O2 Saturation 99.3 % VBG Base Excess 1.0 mEq/L Sodium 139 (136-145) mmol/L Potassium 4.0 TNP Chloride 102 (98-107) mmol/L Carbon Dioxide 32 (21-32) mmol/L Anion Gap 5 (3-11) BUN 33 H (6-23) mg/dl Creatinine 1.00 (0.6-1.2) mg/dl Est Cr Clr Drug Dosing 30.0 ml/min eGFR 54.53 BUN/Creatinine Ratio 33.0 H (10-20) Glucose 179 H (70-99(Fasting)) mg/dl POC Glucose (70-99) mg/dl Calcium 9.3 (8.6-10.3) mg/dl Magnesium 2.1 (1.7-2.4) mg/dl Total Bilirubin 0.6 (0.2-1.0) mg/dl AST 21 TNP ALT 17 (7-52) U/L Alkaline Phosphatase 82 (34-104) U/L Ammonia 21.0 (18-72) umol/L Total Protein 7.4 (6.0-8.3) gm/dl Albumin 4.3 (3.4-5.0) gm/dl Globulin 3.1 (2.5-4.0) gm/dl Albumin/Globulin Ratio 1.4 (0.9-2) TSH 2.465 (0.300-4.500) uIu/ml Urine Color Urine Appearance (Clear) Urine pH (4.5-7.5) Ur Specific Glennie (1.000-1.030) Urine Protein (Negative) Urine Glucose (UA) (Negative) Urine Ketones (Negative) Urine Blood (Negative) Urine Nitrite (Negative) Urine Bilirubin (Negative) Urine Urobilinogen (Negative) Ur Leukocyte Esterase (Negative) Urine WBC (Auto) (0-5) /hpf Urine RBC (Auto) (0-2) /hpf U Hyaline Cast (Auto) (0-2) /lpf U Epithel Cells (Auto) (0-2) /hpf Urine Bacteria (Auto) (None Seen) Medications Administered Current Inpatient Medications Acetaminophen (Acetaminophen 325 Mg Tab) 650 mg PO Q4H PRN PRN Reason: pain/fever Stop: 09/02/24 20:13 Amlodipine Besylate (Amlodipine Besylate 5 Mg Tab) 2.5 mg PO DAILY [place] Stop: 09/03/24 08:59 Last Admin: 08/04/24 09:37 Dose: 2.5 mg Dextrose (Dextrose 50% 50 Ml Syringe) 25 - 50 ml IV UD PRN; Protocol PRN Reason: Hypoglycemia Protocol Stop: 09/02/24 20:13 Escitalopram Oxalate (Escitalopram Oxalate 10 Mg Tab) 10 mg PO HS [place] Stop: 09/02/24 20:59 Last Admin: 08/03/24 21:25 Dose: 10 mg Glucagon (Glucagon For Inj 1 Mg Vial) 1 mg SQ UD PRN; Protocol PRN Reason: Hypoglycemia Protocol Stop: 09/02/24 20:13 Glucose (Glucose 40% Gel 15 Gm Tube) 15 - 30 gm PO UD PRN; Protocol PRN Reason: Hypoglycemia Protocol Stop: 09/02/24 20:13 Glucose (Glucose 10 Tab/Tube) 4 - 8 tab PO UD PRN; Protocol PRN Reason: Hypoglycemia Protocol Stop: 09/02/24 20:13 Heparin Sodium (Porcine) (Heparin Sod 5,000 Unit/0.5 Ml Vial) 5,000 units SQ Q12 [place] Stop: 09/02/24 20:59 Last Admin: 08/04/24 09:37 Dose: 5,000 units Ceftriaxone Sodium (Rocephin) 2,000 mg in 50 mls @ 100 mls/hr IV Q24H [place] Stop: 08/09/24 16:14 Insulin Aspart (Insulin Aspart Per Unit Charge) 0 units SC ACHS [place] Stop: 09/02/24 20:59 Last Admin: 08/04/24 13:16 Dose: Not Given Letrozole (Letrozole 2.5 Mg Tab) 2.5 mg PO QAM [place] Stop: 09/03/24 08:59 Last Admin: 08/04/24 09:37 Dose: 2.5 mg Melatonin (Melatonin 3 Mg Tab) 3 mg PO HS PRN PRN Reason: Sleep Stop: 09/03/24 02:22 Last Admin: 08/04/24 02:52 Dose: 3 mg Miscellaneous (Carbohydrates For Hypoglycemia ) 15 - 30 gm PO UD PRN PRN Reason: Hypoglycemia Protocol Stop: 09/02/24 20:13 Polyethylene Glycol (Polyethylene (Miralax) 17 Gm Pack) 17 gm PO DAILY PRN PRN Reason: Constipation Stop: 09/02/24 20:13 Simvastatin (Simvastatin 10 Mg Tab) 10 mg PO HS [place] Stop: 09/02/24 20:59 Last Admin: 08/03/24 21:25 Dose: 10 mg Vibegron (Vibegron 75 Mg Tab) 75 mg PO DAILY [place] Stop: 09/03/24 08:59 Last Admin: 08/04/24 09:37 Dose: 75 mg Vitamin D (Cholecalciferol 25 Mcg (1000 Units) Tab) 25 mcg PO DAILY [place] Stop: 09/03/24 08:59 Last Admin: 08/04/24 09:37 Dose: 25 mcg
--- NOTE | 2024-08-04 13:48 | XRay Report ---
Clinical History: Follow-up Technique: A frontal view of the chest was obtained Comparison is made to the prior examination dated 10/08/2016 Findings: There is new linear opacity in the right lung base that may be due to atelectasis. The heart size is at the upper limit of normal. No pleural effusion or pneumothorax is seen. There is suspected mild pulmonary edema There is a new right shoulder replacement. There is an unchanged lumbar fusion Impression: 1. Mild pulmonary edema 2. Right lung base opacity, likely due to atelectasis ACT 112: Positive. There are findings on this exam that require communication between the performing entity and the patient following Patient Test Result Information Act ([place] ACT 112) guidelines. Electronically signed by Akil Iglesias 08-04-2024 13:48 PM
[2024-08-04] MEDS: cefTRIAXone SODIUM 2,000 MG/50 ML BAG IV SCH (16:11)
[2024-08-05] MEDS: MELATONIN 3 MG TAB PO STA (00:15)
[2024-08-05 06:43] LABS: Hematocrit (blood only) 35.3 % (37.0-47.0); Mean Corpuscular Volume 91.2 fL (80.0-100.0); Mean Platelet Volume 10.2 fL (9.4-12.4); Platelet Count 196 K/uL (130-400); RDW Coefficient of Variation 14.6 % (11.5-14.5); RDW Standard Deviation 48.5 fL (36.4-46.3); Red Blood Count 3.87 M/uL (4.20-5.40); White Blood Count 7.04 K/ul (4.8-10.8)
[2024-08-05 07:06] LABS: BUN Creatinine Ratio 26.6 (10-20); Calcium 9.1 mg/dl (8.6-10.3); Creatinine Clr Calc Pharmacy 31.9 ml/min; Phosphorus 3.7 mg/dl (2.5-4.9); Potassium 4.2 mmol/L (3.5-5.1)
--- NOTE | 2024-08-05 11:25 | Hospitalist Progress Note ---
Date of Service August 05, 2024 Assessment & Plan (1) Acute confusion: (2) Acute UTI: (3) Acute dehydration: (4) Mild cognitive impairment: (5) MDD (major depressive disorder): (6) Diabetes mellitus type 2 in nonobese: (7) Hypertension: (8) Hyperlipidemia: Plan Ms Borjas is an 89 yo F w/ mild cognitive disorder, MDD, DMII with neuropathy, HTN, HLD, CKD III, GERD, history of bilateral breast cancer who presented to the ED with acute confusion admitted for acute metabolic encephalopathy and noted to have acute cystitis. Patient clinically improving and awaiting PT eval for dispo planning Patient underwent speech eval and concluded episodes likely related to esoph ageal dysfunction and an easy chew with extra condiments recommended for ease of swallowing Attempted to call daughter at 1300, will trial again this afternoon for an update. #Acute metabolic encephalopathy #Mild cognitive impairment, c/b depression and anxiety Patient with underlying mild cognitive impairment with x1 month history of confusion but acutely worse on admission Extensive workup in the ED: labs unremarkable, EKG with NSR, negative head CT, negative CXR, normal VBG, negative ammonia, normal TSH Started on lexapro 10mg, discontinue memantine, weaned of galantamine Neuro follow up in august UA c/w infection, follow urine cultx - cont. empiric Rocephin for now pending pt/ot #Acute UTI UA +leuk esterase, WBC, bacteria Patient is asymptomatic, afebrile, no leukocytosis, vitals stable 08/03 blood cultures negative to date 08/03 UA hernandez sensitive ecoli Continue ceftriaxone q24hr, transition to PO upon d/c #Acute dehydration #Esophageal dysfunction Received 1L NSS in ED Speech eval completed: easy to chew diet, aspiration #DMII On metformin at home- holding while inpt SSI while inpt #Hypertension Continue home amlodipine #Hyperlipidemia Continue home simvastatin #History of breast cancer Follows with [facility] every 6 months Continue home letrozole DVT Prophylaxis: SQ Heparin Code Status: DNR/DNI - As per discussion at bedside with the patient. PCP: Andreea Alcala Disposition: med/surg tele Admission and Anticipated Discharge Date Admission Date: August 03, 2024 Subjective Evaluated at bedside with Reports feeling like she is getting better and reports she has improved, but still not quite 100% Patient denies any specific concerns at this time, she reports good appetite overall and eagerness to move more Discussion concludes that OT is recommended rehab at this time, awaiting PT eval to assess next dispo plans Physical Exam Constitutional: WD/WN, vitals as above Respiratory: normal respiratory effort, lungs clear to auscultation Cardiovascular: RRR, no murmur, no edema Gastrointestinal (Abdomen): normal bowel sounds, soft, nontender, no hepatosplenomegaly Results & Data Results & Data Vital Signs (Past 12 Hours) Vital Signs Temp Pulse Pulse Resp BP BP Pulse Ox 08/05/24 07:46 36.4 C L 57 L 16 170/78 H 94 08/05/24 07:35 55 L 178/71 H 183/78 H 08/05/24 06:45 47 L 08/05/24 04:00 36.5 C 75 18 181/79 H 97 O2 Del Method 08/05/24 07:46 Room Air 08/05/24 07:35 08/05/24 06:45 08/05/24 04:00 Room Air Laboratory Results Short CBC 08/05/24 Range/Units 06:17 WBC 7.04 (4.8-10.8) K/ul Hgb 12.0 (12.0-16.0) g/dl Hct 35.3 L (37.0-47.0) % Plt Count 196 (130-400) K/uL BMP 08/05/24 06:17 Sodium 139 Potassium 4.2 Chloride 102 Carbon Dioxide 33 H BUN 25 H Creatinine 0.94 Glucose 132 H Calcium 9.1 Medications Administered Home Medications Medication Instructions Recorded Confirmed Last Taken multivitamin (Multiple Vitamins 1 tab PO DAILY 11/28/18 08/03/24 08/03/24 tablet) letrozole 2.5 mg tablet 2.5 mg PO QAM 02/14/19 08/03/24 08/03/24 blood-glucose meter (OneTouch #1 ea 02/15/19 02/24/24 Unknown UltraMini kit) blood sugar diagnostic #200 ea 11/24/20 02/24/24 Unknown amlodipine 2.5 mg tablet 2.5 mg PO DAILY #90 tabs 05/31/22 08/03/24 08/03/24 ascorbate calcium (vitamin C) 500 500 mg PO DAILY 05/31/22 08/03/24 08/03/24 mg tablet metformin 500 mg tablet 500 mg PO BID #180 tabs 08/18/22 08/03/24 08/03/24 08:00 simvastatin 10 mg tablet 10 mg PO HS #90 tabs 08/18/22 08/03/24 08/02/24 cholecalciferol (vitamin D3) 25 25 mcg PO DAILY 11/21/23 08/03/24 08/03/24 mcg (1,000 unit) capsule vibegron 75 mg tablet (Gemtesa) 75 mg PO DAILY #90 tabs 01/27/24 08/03/24 08/03/24 escitalopram oxalate 10 mg tablet 10 mg PO HS 08/03/24 08/03/24 08/02/24 Active Medications Generic Name Dose Route Start Last Admin Trade Name Saranq PRN Reason Stop Dose Admin Amlodipine Besylate 2.5 mg 08/04/24 09:00 08/05/24 09:05 Amlodipine Besylate 5 Mg Tab PO 09/03/24 08:59 2.5 mg DAILY [place] Administration Escitalopram Oxalate 10 mg 08/03/24 21:00 08/04/24 20:14 Escitalopram Oxalate 10 Mg Tab PO 09/02/24 20:59 10 mg HS [place] Administration Heparin Sodium (Porcine) 5,000 units 08/03/24 21:00 08/05/24 08:44 Heparin Sod 5,000 Unit/0.5 Ml Vial SQ 09/02/24 20:59 5,000 units Q12 [place] Administration Ceftriaxone Sodium 2,000 mg in 50 mls @ 100 mls/hr 08/04/24 16:15 08/04/24 16:41 Rocephin IV 08/09/24 16:14 Infused Q24H [place] Infusion Insulin Aspart 0 units 08/03/24 21:00 08/05/24 08:57 Insulin Aspart Per Unit Charge SC 09/02/24 20:59 Not Given ACHS [place] Letrozole 2.5 mg 08/04/24 09:00 08/05/24 09:07 Letrozole 2.5 Mg Tab PO 09/03/24 08:59 2.5 mg QAM [place] Administration Melatonin 3 mg 08/04/24 02:23 08/04/24 22:42 Melatonin 3 Mg Tab PO 09/03/24 02:22 3 mg HS PRN Administration Sleep Simvastatin 10 mg 08/03/24 21:00 08/04/24 20:14 Simvastatin 10 Mg Tab PO 09/02/24 20:59 10 mg HS [place] Administration Vibegron 75 mg 08/04/24 09:00 08/05/24 09:08 Vibegron 75 Mg Tab PO 09/03/24 08:59 75 mg DAILY [place] Administration Vitamin D 25 mcg 08/04/24 09:00 08/05/24 09:06 Cholecalciferol 25 Mcg (1000 Units) Tab PO 09/03/24 08:59 25 mcg DAILY [place] Administration
[2024-08-06 06:10] LABS: Hematocrit (blood only) 37.3 % (37.0-47.0); Hemoglobin 12.7 g/dl (12.0-16.0); Mean Corpuscular Hemoglobin 31.2 pg (25.0-34.0); Mean Corpuscular Volume 91.6 fL (80.0-100.0); Platelet Count 204 K/uL (130-400); RDW Coefficient of Variation 14.5 % (11.5-14.5); RDW Standard Deviation 48.8 fL (36.4-46.3); Red Blood Count 4.07 M/uL (4.20-5.40)
[2024-08-06 06:32] LABS: Calcium 9.1 mg/dl (8.6-10.3); Creatinine Clr Calc Pharmacy 31.3 ml/min; Magnesium 2.2 mg/dl (1.7-2.4); Potassium 3.8 mmol/L (3.5-5.1)
--- NOTE | 2024-08-06 16:47 | Hospitalist Progress Note ---
Date of Service August 06, 2024 Assessment & Plan (1) Acute confusion: (2) Acute UTI: (3) Acute dehydration: (4) Mild cognitive impairment: (5) MDD (major depressive disorder): (6) Diabetes mellitus type 2 in nonobese: (7) Hypertension: (8) Hyperlipidemia: Plan Ms Borjas is an 89 yo F w/ mild cognitive disorder, MDD, DMII with neuropathy, HTN, HLD, CKD III, GERD, history of bilateral breast cancer who presented to the ED with acute confusion admitted for acute metabolic encephalopathy and noted to have acute cystitis. Patient clinically improving and awaiting PT eval for dispo planning Patient underwent speech eval and concluded episodes likely related to esoph ageal dysfunction and an easy chew with extra condiments recommended for ease of swallowing Patient to go to SNF, authorization pending #Acute metabolic encephalopathy #Mild cognitive impairment, c/b depression and anxiety Patient with underlying mild cognitive impairment with x1 month history of confusion but acutely worse on admission Extensive workup in the ED: labs unremarkable, EKG with NSR, negative head CT, negative CXR, normal VBG, negative ammonia, normal TSH Started on lexapro 10mg, discontinue memantine, weaned of galantamine Neuro follow up in august UA c/w infection, follow urine cultx - cont. empiric Rocephin for now SNF for dispo, pending auth #Acute UTI UA +leuk esterase, WBC, bacteria Patient is asymptomatic, afebrile, no leukocytosis, vitals stable 08/03 blood cultures negative to date 08/03 UA hernandez sensitive ecoli Continue ceftriaxone q24hr, transition to PO upon d/c #Acute dehydration #Esophageal dysfunction Received 1L NSS in ED Speech eval completed: easy to chew diet, aspiration #DMII On metformin at home- holding while inpt SSI while inpt #Hypertension Continue home amlodipine #Hyperlipidemia Continue home simvastatin #History of breast cancer Follows with [facility] every 6 months Continue home letrozole DVT Prophylaxis: SQ Heparin Code Status: DNR/DNI - As per discussion at bedside with the patient. PCP: Andreea Alcala Disposition: med/surg tele; patient medically stable for d/c to rehab Admission and Anticipated Discharge Date Admission Date: August 03, 2024 Subjective Evaluated at bedside Denies any acute concerns, reports wanting melatonin scheduled just before 10pm Denies any chest pain, fevers, chills Eager for dispo to rehab Physical Exam Constitutional: WD/WN, vitals as above Respiratory: normal respiratory effort, lungs clear to auscultation Cardiovascular: RRR, no murmur, no edema Gastrointestinal (Abdomen): normal bowel sounds, soft, nontender, no hepatosplenomegaly Results & Data Results & Data Vital Signs (Past 12 Hours) Vital Signs Temp Pulse Pulse Resp BP Pulse Ox O2 Del Method 08/06/24 15:17 36.4 C L 58 L 20 102/57 L 95 Room Air 08/06/24 14:23 72 08/06/24 11:40 36.4 C L 58 L 20 106/65 95 Room Air 08/06/24 10:42 Room Air 08/06/24 07:38 36.4 C L 52 L 16 138/68 94 Room Air 08/06/24 07:15 57 L Laboratory Results Short CBC 08/06/24 Range/Units 05:43 WBC 7.00 (4.8-10.8) K/ul Hgb 12.7 (12.0-16.0) g/dl Hct 37.3 (37.0-47.0) % Plt Count 204 (130-400) K/uL BMP 08/06/24 05:43 Sodium 138 Potassium 3.8 Chloride 102 Carbon Dioxide 30 BUN 23 Creatinine 0.96 Glucose 129 H Calcium 9.1 Medications Administered Home Medications Medication Instructions Recorded Confirmed Last Taken multivitamin (Multiple Vitamins 1 tab PO DAILY 11/28/18 08/03/24 08/03/24 tablet) letrozole 2.5 mg tablet 2.5 mg PO QAM 02/14/19 08/03/24 08/03/24 blood-glucose meter (OneTouch #1 ea 02/15/19 02/24/24 Unknown UltraMini kit) blood sugar diagnostic #200 ea 11/24/20 02/24/24 Unknown amlodipine 2.5 mg tablet 2.5 mg PO DAILY #90 tabs 05/31/22 08/03/24 08/03/24 ascorbate calcium (vitamin C) 500 500 mg PO DAILY 05/31/22 08/03/24 08/03/24 mg tablet metformin 500 mg tablet 500 mg PO BID #180 tabs 08/18/22 08/03/24 08/03/24 08:00 simvastatin 10 mg tablet 10 mg PO HS #90 tabs 08/18/22 08/03/24 08/02/24 cholecalciferol (vitamin D3) 25 25 mcg PO DAILY 11/21/23 08/03/24 08/03/24 mcg (1,000 unit) capsule vibegron 75 mg tablet (Gemtesa) 75 mg PO DAILY #90 tabs 01/27/24 08/03/24 08/03/24 escitalopram oxalate 10 mg tablet 10 mg PO HS 08/03/24 08/03/24 08/02/24 Active Medications Generic Name Dose Route Start Last Admin Trade Name Freq PRN Reason Stop Dose Admin Amlodipine Besylate 2.5 mg 08/04/24 09:00 08/06/24 08:41 Amlodipine Besylate 5 Mg Tab PO 09/03/24 08:59 2.5 mg DAILY [place] Administration Escitalopram Oxalate 10 mg 08/03/24 21:00 08/05/24 21:13 Escitalopram Oxalate 10 Mg Tab PO 09/02/24 20:59 10 mg HS [place] Administration Heparin Sodium (Porcine) 5,000 units 08/03/24 21:00 08/06/24 09:02 Heparin Sod 5,000 Unit/0.5 Ml Vial SQ 09/02/24 20:59 5,000 units Q12 [place] Administration Ceftriaxone Sodium 2,000 mg in 50 mls @ 100 mls/hr 08/04/24 16:15 08/06/24 15:55 Rocephin IV 08/09/24 16:14 100 mls/hr Q24H [place] Administration Insulin Aspart 0 units 08/03/24 21:00 08/06/24 12:43 Insulin Aspart Per Unit Charge SC 09/02/24 20:59 2 units ACHS [facility] Administration Letrozole 2.5 mg 08/04/24 09:00 08/06/24 08:40 Letrozole 2.5 Mg Tab PO 09/03/24 08:59 2.5 mg QAM [facility] Administration Melatonin 3 mg 08/04/24 02:23 08/05/24 21:13 Melatonin 3 Mg Tab PO 09/03/24 02:22 3 mg HS PRN Administration Sleep Simvastatin 10 mg 08/03/24 21:00 08/05/24 21:13 Simvastatin 10 Mg Tab PO 09/02/24 20:59 10 mg HS [facility] Administration Vibegron 75 mg 08/04/24 09:00 08/06/24 08:41 Vibegron 75 Mg Tab PO 09/03/24 08:59 75 mg DAILY [facility] Administration Vitamin D 25 mcg 08/04/24 09:00 08/06/24 08:40 Cholecalciferol 25 Mcg (1000 Units) Tab PO 09/03/24 08:59 25 mcg DAILY [facility] Administration
[2024-08-06] MEDS: MELATONIN 3 MG TAB PO SCH (21:53)
--- NOTE | 2024-08-07 08:42 | Hospitalist Progress Note ---
Date of Service August 07, 2024 Assessment & Plan (1) Acute confusion: (2) Acute UTI: (3) Acute dehydration: (4) Mild cognitive impairment: (5) MDD (major depressive disorder): (6) Diabetes mellitus type 2 in nonobese: (7) Hypertension: (8) Hyperlipidemia: Plan Ms Borjas is an 89 yo F w/ mild cognitive disorder, MDD, DMII with neuropathy, HTN, HLD, CKD III, GERD, history of bilateral breast cancer who presented to the ED with acute confusion admitted for acute metabolic encephalopathy and noted to have acute cystitis. Patient underwent speech eval and concluded episodes likely related to esophageal dysfunction and an easy chew with extra condiments recommended for ease of swallowing Patient to go to SNF, authorization pending Medically stable for D/C #Acute metabolic encephalopathy #Mild cognitive impairment, c/b depression and anxiety Patient with underlying mild cognitive impairment with x1 month history of confusion but acutely worse on admission Extensive workup in the ED: labs unremarkable, EKG with NSR, negative head CT, negative CXR, normal VBG, negative ammonia, normal TSH Started on lexapro 10mg, discontinue memantine, weaned of galantamine Neuro follow up in august UA c/w infection, follow urine cultx - cont. empiric Rocephin for now SNF for dispo, pending auth #Acute UTI UA +leuk esterase, WBC, bacteria Patient is asymptomatic, afebrile, no leukocytosis, vitals stable 08/03 blood cultures negative to date 08/03 UA hernandez sensitive ecoli Continue ceftriaxone q24hr, transition to PO upon d/c #Acute dehydration #Esophageal dysfunction Received 1L NSS in ED Speech eval completed: easy to chew diet, aspiration #DMII On metformin at home- holding while inpt SSI while inpt #Hypertension Continue home amlodipine #Hyperlipidemia Continue home simvastatin #History of breast cancer Follows with [facility] every 6 months Continue home letrozole DVT Prophylaxis: SQ Heparin Code Status: DNR/DNI - As per discussion at bedside with the patient. PCP: Andreea Alcala Disposition: med/surg tele; patient medically stable for d/c to rehab Admission and Anticipated Discharge Date Admission Date: August 03, 2024 Subjective NAEO Awaiting rehab Physical Exam Constitutional: WD/WN, vitals as above sitting in bedside chair Respiratory: normal respiratory effort, lungs clear to auscultation Cardiovascular: RRR, no murmur, no edema Gastrointestinal (Abdomen): normal bowel sounds, soft, nontender, no hepatosplenomegaly Results & Data Results & Data Vital Signs (Past 12 Hours) Vital Signs Temp Pulse Pulse Resp BP BP Pulse Ox 08/07/24 07:47 36.4 C L 63 20 174/78 H 96 08/07/24 05:43 50 L 08/07/24 03:49 36.5 C 54 L 18 132/73 96 08/07/24 00:16 36.6 C 55 L 18 139/70 97 08/06/24 21:49 53 L O2 Del Method 08/07/24 07:47 Room Air 08/07/24 05:43 08/07/24 03:49 Room Air 08/07/24 00:16 Room Air 08/06/24 21:49 Medications Administered Home Medications Medication Instructions Recorded Confirmed Last Taken multivitamin (Multiple Vitamins 1 tab PO DAILY 11/28/18 08/03/24 08/03/24 tablet) letrozole 2.5 mg tablet 2.5 mg PO QAM 02/14/19 08/03/24 08/03/24 blood-glucose meter (OneTouch #1 ea 02/15/19 02/24/24 Unknown UltraMini kit) blood sugar diagnostic #200 ea 11/24/20 02/24/24 Unknown amlodipine 2.5 mg tablet 2.5 mg PO DAILY #90 tabs 05/31/22 08/03/24 08/03/24 ascorbate calcium (vitamin C) 500 500 mg PO DAILY 05/31/22 08/03/24 08/03/24 mg tablet metformin 500 mg tablet 500 mg PO BID #180 tabs 08/18/22 08/03/24 08/03/24 08:00 simvastatin 10 mg tablet 10 mg PO HS #90 tabs 08/18/22 08/03/24 08/02/24 cholecalciferol (vitamin D3) 25 25 mcg PO DAILY 11/21/23 08/03/24 08/03/24 mcg (1,000 unit) capsule vibegron 75 mg tablet (Gemtesa) 75 mg PO DAILY #90 tabs 01/27/24 08/03/24 08/03/24 escitalopram oxalate 10 mg tablet 10 mg PO HS 08/03/24 08/03/24 08/02/24 Active Medications Generic Name Dose Route Start Last Admin Trade Name Latoya PRN Reason Stop Dose Admin Amlodipine Besylate 2.5 mg 08/04/24 09:00 08/07/24 08:27 Amlodipine Besylate 5 Mg Tab PO 09/03/24 08:59 2.5 mg DAILY STERLING Administration Escitalopram Oxalate 10 mg 08/03/24 21:00 08/06/24 21:55 Escitalopram Oxalate 10 Mg Tab PO 09/02/24 20:59 10 mg HS STERLING Administration Heparin Sodium (Porcine) 5,000 units 08/03/24 21:00 08/07/24 08:33 Heparin Sod 5,000 Unit/0.5 Ml Vial SQ 09/02/24 20:59 5,000 units Q12 STERLING Administration Ceftriaxone Sodium 2,000 mg in 50 mls @ 100 mls/hr 08/04/24 16:15 08/06/24 16:25 Rocephin IV 08/09/24 16:14 Infused Q24H STERLING Infusion Insulin Aspart 0 units 08/03/24 21:00 08/06/24 21:19 Insulin Aspart Per Unit Charge SC 09/02/24 20:59 Not Given ACHS STERLING Letrozole 2.5 mg 08/04/24 09:00 08/07/24 08:28 Letrozole 2.5 Mg Tab PO 09/03/24 08:59 2.5 mg QAM STERLING Administration Melatonin 6 mg 08/06/24 21:45 08/06/24 21:53 Melatonin 3 Mg Tab PO 09/05/24 21:44 6 mg HS STERLING Administration Simvastatin 10 mg 08/03/24 21:00 08/06/24 21:55 Simvastatin 10 Mg Tab PO 09/02/24 20:59 10 mg HS STERLING Administration Vibegron 75 mg 08/04/24 09:00 08/07/24 08:28 Vibegron 75 Mg Tab PO 09/03/24 08:59 75 mg DAILY STERLING Administration Vitamin D 25 mcg 08/04/24 09:00 08/07/24 08:28 Cholecalciferol 25 Mcg (1000 Units) Tab PO 09/03/24 08:59 25 mcg DAILY STERLING Administration
[2024-08-08 07:44] VITALS: RESP 16; O2SAT 94
--- NOTE | 2024-08-08 11:24 | Discharge Summary ---
Discharge Summary Date of Service August 08, 2024 Principal Dx & Hospital Course #1 = Principal Diagnosis (1) Acute confusion: (2) Acute UTI: (3) Acute dehydration: (4) Mild cognitive impairment: (5) MDD (major depressive disorder): (6) Diabetes mellitus type 2 in nonobese: (7) Hypertension: (8) Hyperlipidemia: Plan Ms Borjas is an 89 yo F w/ mild cognitive disorder, MDD, DMII with neuropathy, HTN, HLD, CKD III, GERD, history of bilateral breast cancer who presented to the ED with acute confusion and was admitted for acute metabolic encephalopathy in the setting of an acute UTI. Patient also underwent speech evaluation and concluded episodes likely related to esophageal dysfunction and an easy to chew diet with extra condiments recommended for ease of swallowing. She was treated for the following: Acute metabolic encephalopathy Mild cognitive impairment, complicated by depression and anxiety Complicated Urinary tract Infection Patient with underlying mild cognitive impairment with 1 month history of confusion but acutely worse on admission Extensive workup in the ED: labs unremarkable, EKG with NSR, negative head CT, negative CXR, normal VBG, negative ammonia, normal TSH Started on lexapro 10mg, discontinue memantine, weaned off of galantamine Neuro follow up in August previously scheduled UA suggestive of infection, urine culture grew pansensitive E coli Blood cultures NGTD Completed 5/5 days of IV Rocephin On the day of discharge, pt back to baseline per family. Discharged to SNF with close PCP continued followup. Esophageal dysfunction Received 1L NSS in ED Speech eval completed: easy to chew diet with thins and extra condiments/gravies/sauces, more frequent smaller meals, aspiration precautions. Speech also recommending consideration of GI/ENT consult. DMII On metformin at home SSI while inpt Continue home regimen Hypertension Continue home amlodipine Hyperlipidemia Continue home simvastatin History of breast cancer Follows with [facility] every 6 months Continue home letrozole Notes For Next Care Provider Please esnure Neurology followup as scheduled Medication Changes From Visit As above Admission HPI Per Admitting Provider 89 year old female with PMH significant for mild cognitive disorder, MDD, DMII with neuropathy, HTN, HLD, CKD III, GERD, history of bilateral breast cancer who presented to the ED today with confusion. History obtained from patient and her . Her explains that patient has been increasingly confused for the last month, in particular with waking up and not knowing what to do next. He explains that she is oriented to self and location but occasionally forgets to get ready in the morning and does not remember how to cook. Today, she was laying on the couch and her came home and noticed she was acutely confused and didn't know what to do with herself. She states she didn't feel right in her memory. They sought evaluation at urgent care and were referred to the ED. She denies fevers, chills, cough, cold symptoms, chest pain, SOB, abdominal pain, N/V/D, dysuria. They report that she has had two falls in the last two months. One was six weeks ago where she went down and fell on her right knee. The other was about 10 days ago where she lowered herself down and sustai anton no injuries. She denies hitting her head or LOC with either fall. They currently live at [facility] in independent living. Admission Exam Per Admitting Provider General/Psych: WD/WN, sitting up in bed, NAD, conversing easily, euthymic affect Head: normocephalic, atraumatic Eyes: normal inspection, PERRL, conjunctivae pink, anicteric sclerae ENT: external ear and nose normal, oropharynx normal Neck: normal visual inspection, trachea midline, no thyromegaly Respiratory: normal respiratory effort, lungs clear to auscultation, no wheeze/rales/rhonchi, no accessory muscle use Cardiovascular: regular rate and rhythm, no murmur/rub/gallop, no JVD Extremities: no cyanosis or clubbing, normal peripheral pulses, swelling of the right knee and lower leg d/t traumatic fall Abdomen/GI: normal bowel sounds, soft, nontender, no hepatosplenomegaly Neurologic/MSK: A+Ox3, motor strength 5/5, moves all extremities Skin: no rashes, normal color, warm and dry, significant bruising over right knee and mendieta Discharge Exam General: Alert, orientedx2. No acute distress Skin: bruising on R knee Psych: Alert, orientedx2 Neuro: Alert, orientedx1 HEENT: NC/AT CV: RRR Resp: Breath sounds clear bilaterally, no increased effort of breathing Abdomen: Soft, nontender Extremities: No edema in lower extremities bilaterally. Updated Medication List Medication Instructions Recorded Confirmed Type multivitamin (Multiple Vitamins 1 tab PO DAILY 11/28/18 08/03/24 History tablet) letrozole 2.5 mg tablet 2.5 mg PO QAM 02/14/19 08/03/24 History blood-glucose meter (OneTouch #1 ea 02/15/19 02/24/24 Rx UltraMini kit) blood sugar diagnostic #200 ea 11/24/20 02/24/24 Rx amlodipine 2.5 mg tablet 2.5 mg PO DAILY #90 tabs 05/31/22 08/03/24 Rx ascorbate calcium (vitamin C) 500 500 mg PO DAILY 05/31/22 08/03/24 History mg tablet metformin 500 mg tablet 500 mg PO BID #180 tabs 08/18/22 08/03/24 Rx simvastatin 10 mg tablet 10 mg PO HS #90 tabs 08/18/22 08/03/24 Rx cholecalciferol (vitamin D3) 25 25 mcg PO DAILY 11/21/23 08/03/24 History mcg (1,000 unit) capsule vibegron 75 mg tablet (Gemtesa) 75 mg PO DAILY #90 tabs 01/27/24 08/03/24 Rx escitalopram oxalate 10 mg tablet 10 mg PO HS 08/03/24 08/03/24 History Hospital Stay Data Consultations 08/03/24 16:25 ED Decision to Admit Stat Diagnostic Imagining Performed 08/03/24 13:44 CT head/brain wo con Stat Head CT 08/03/24 13:44 CT head/brain wo con CLINICAL HISTORY: 89 years-old Female with confusion. Acutely altered mental status with confusion TECHNIQUE: Multiple axial CT images of the head were obtained without contrast. A dose lowering technique was utilized adhering to the principles of ALARA. CT DOSE: 580.53 mGy.cm COMPARISON: None. FINDINGS: No acute intracranial hemorrhage, midline shift, intracranial mass, hydrocephalus, territorial ischemia or abnormal extra-axial collection. Involutional changes with chronic microvascular ischemic disease. Senescent calcifications of the basal ganglia. The calvarium is intact. Partially the sella. The paranasal sinuses, mastoid air cells, and middle ear cavities are clear. IMPRESSION: No acute intracranial abnormality. ACT 112: Negative or not required by law. The above report was generated using voice recognition software. It may contain grammatical, syntax or spelling errors. Electronically signed by: Slick Lerner M.D. 08/03/2024 2:08 PM Chest X-Ray 08/03/24 14:06 XR chest 1V portable CLINICAL HISTORY: weak COMPARISON STUDY: 10/08/2016 FINDINGS: There is prominent cardiomegaly without pulmonary vascular congestion. There are mitral valvular calcifications. Lungs are hyperexpanded. No effusion, consolidation, or pneumothorax. IMPRESSION: No acute findings. ACT 112: Negative or not required by law. Electronically signed by: Oliver Whalen M.D. 08/03/2024 2:23 PM Chest X-Ray 08/04/24 13:30 Clinical History: Follow-up Technique: A frontal view of the chest was obtained Comparison is made to the prior examination dated 10/08/2016 Findings: There is new linear opacity in the right lung base that may be due to atelectasis. The heart size is at the upper limit of normal. No pleural effusion or pneumothorax is seen. There is suspected mild pulmonary edema There is a new right shoulder replacement. There is an unchanged lumbar fusion Impression: 1. Mild pulmonary edema 2. Right lung base opacity, likely due to atelectasis ACT 112: Positive. There are findings on this exam that require communication between the performing entity and the patient following Patient Test Result Information Act ([place] ACT 112) guidelines. Electronically signed by Akil Iglesias 08-04-2024 13:48 PM Discharge Instructions Given to Patient (Per Discharging Provider) Fatemehfortino, You were seen and treated for an acute urinary tract infection. You likely had worsening confusion in this setting. You completed 5 days of IV antibiotic treatment in the hospital. You were also seen by the speech therapist who recommends that you continue with an easy to chew diet with aspiration precautions. Please keep close follow up with your primary care provider after discharge. Please do not hesitate to come back to the emergency room if your symptoms worsen or return. It was a pleasure taking care of you while you were here. Total Time Total Time Spent Total Time Spent (In Minutes): 45
[2024-08-08 11:52] VITALS: BP 110/68; PULSE 59; TEMP 97.7
== END 2024-08-08 13:24 | DRG 689 ==
LOC: ED 13:02 → SUATTDRO 17:46 → EDINP 17:46 → 2N 20:14
DX: N30.00 Acute cystitis without hematuria; E86.0 Dehydration; E11.40 Type 2 diabetes mellitus with diabetic neuropathy, unspecified; Z79.818 Long term (current) use of other agents affecting estrogen receptors and estrogen levels; N18.30 Chronic kidney disease, stage 3 unspecified; B96.20 Unspecified Escherichia coli [E. coli] as the cause of diseases classified elsewhere; Z79.84 Long term (current) use of oral hypoglycemic drugs; Z88.5 Allergy status to narcotic agent; G93.41 Metabolic encephalopathy; F41.9 Anxiety disorder, unspecified; Z79.899 Other long term (current) drug therapy; K22.9 Disease of esophagus, unspecified; I12.9 Hypertensive chronic kidney disease with stage 1 through stage 4 chronic kidney disease, or unspecified chronic kidney disease; G31.84 Mild cognitive impairment of uncertain or unknown etiology; E78.5 Hyperlipidemia, unspecified; E11.22 Type 2 diabetes mellitus with diabetic chronic kidney disease; Z85.3 Personal history of malignant neoplasm of breast; F32.9 Major depressive disorder, single episode, unspecified

== ENCOUNTER 2025-04-03 18:26 | Inpatient (IN) ==
--- NOTE | 2025-04-03 19:03 | Emergency Department Note ---
ED Provider Note History of Present Illness Chief Complaint: Hearing Loss Stated Complaint: BILATERAL HEARING LOSS W/ PREVIOUS GROIN PAIN Time Seen by Provider: 04/03/25 18:43 Source: patient Mode of arrival: ambulatory Limitations: no limitations Patient is an 89-year-old female who presents to the emergency department with complaints of bilateral hearing loss that occurred bilaterally and suddenly at approximately 2 PM today. Patient also reports that she is experiencing urinary symptoms such as discomfort with urination, groin pain, and urinary frequency. Patient is concerned that she has urinary tract infection. Patient also notes that she has been generally weak and having some difficulty with intermittent confusion. Home Medications Medication Instructions Recorded Confirmed Type multivitamin (Multiple Vitamins 1 tab PO DAILY 11/28/18 04/03/25 History tablet) letrozole 2.5 mg tablet 2.5 mg PO QAM 02/14/19 04/03/25 History blood-glucose meter (OneTouch #1 ea 02/15/19 03/15/25 Rx UltraMini kit) blood sugar diagnostic #200 ea 11/24/20 03/15/25 Rx ascorbate calcium (vitamin C) 500 500 mg PO DAILY 05/31/22 04/03/25 History mg tablet metformin 500 mg tablet 500 mg PO BID #180 tabs 08/18/22 04/03/25 Rx simvastatin 10 mg tablet 10 mg PO HS #90 tabs 08/18/22 04/03/25 Rx cholecalciferol (vitamin D3) 25 25 mcg PO DAILY 11/21/23 04/03/25 History mcg (1,000 unit) capsule escitalopram oxalate 10 mg tablet 10 mg PO HS #90 tabs 09/19/24 04/03/25 Rx vibegron 75 mg tablet (Gemtesa) 75 mg PO DAILY 04/03/25 04/03/25 History Allergies Allergy/AdvReac Type Severity Reaction Status Date / Time codeine AdvReac Severe Hallucinati Verified 04/03/25 19:22 ons hydrocodone [From Vicodin] AdvReac Severe Hallucinati Verified 04/03/25 19:22 ons oxycodone AdvReac Severe Hallucinati Verified 04/03/25 19:22 ons tramadol AdvReac Intermediate GI upset Verified 04/03/25 19:22 Past Med/Surg History Problem List Weakness (Acute) History of use of hearing aid in both ears (Acute) Acute UTI (urinary tract infection) (Acute) Cognitive changes Urinary incontinence (Chronic) Magnetic gait Anxiety GERD (gastroesophageal reflux disease) Chronic kidney disease, stage III (moderate) MDD (major depressive disorder) Acute dehydration (Acute) Acute confusion (Acute) Hypertension (Acute) Hyperlipidemia (Acute) Diabetes mellitus type 2 in nonobese (Acute 09/04/11) NIDDM Mild cognitive impairment Medical History Memory loss Diabetes Arthritis Chronic cerebral ischemia Asymmetric SNHL (sensorineural hearing loss) Asymptomatic menopausal state Brachial plexopathy Breast cancer 2016 right er/pr+, 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 Generalized osteoarthritis of multiple sites Insomnia Lower back pain Lumbosacral radiculopathy at L4 Neuropathy (09/04/11) Urge incontinence of urine Urinary urgency Ventral hernia Tachycardia (09/04/11) Rotator cuff tear arthropathy of right shoulder DVT prophylaxis Encounter for pre-operative examination History of chemotherapy History of memory loss History of anemia History of breast cancer lobular hyperplasia with atypical and fibrocystic changes Excessive cerumen in right ear canal Gastric ulcer Per remote records, pt denies Incisional hernia reason for upcoming hernia repair Surgical History History of incisional hernia repair (11/04/20) Incisional hernia, incarceration of omentum. Dr. 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) History of cardiac cath 2000 ([facility]) > no stents History of bilateral tubal ligation History of colonoscopy History of right shoulder replacement History of left knee replacement Hx of tonsillectomy 1955 S/P tonsillectomy S/P mastectomy, bilateral (~2017) simple mastectomy S/P breast biopsy S/P foot surgery right S/P cataract surgery both eyes History of back surgery lumbar fusion Family History Sister Breast cancer Sister Breast cancer Aunt Colorectal cancer Family/Other Colorectal cancer Mother Diabetes Dementia Hypertension Father Leukemia Other No family history of adverse response to anesthesia Denies family history of Ovarian cancer Prostate cancer Myocardial infarction Social History Smoking Status: Never smoker Tobacco Type: Cigarettes Second Hand Exposure: No; Do You Dip or Chew Tobacco: No; Hx Alcohol Use: Yes Alcohol type: hard liquor Alcohol Intake Frequency Comment: occassionally Hx Substance Use: No Preferred Language: Yi Communication Ability: Effective Visual Impairment: No Limitations Hearing Ability: Hard of Hearing Mobile Practice Lead Required: No Beliefs That Will Affect Care: None marital status: Current Living Situation: Spouse Current Living Situation Comment: Lived with at [facility] current occupational status: retired How many Children do You have: 3 Feels Safe at Home: Yes Diet: regular during the past year weight has: decreased > 10 lbs Physical Activity Frequency: 3-4 Times per Week Physical Activity Frequency Comment: regularly Seatbelt Use: always Assistive Devices: Walker Physical Exam Vital Signs Vital Signs - 24 hr 04/03/25 18:29 04/03/25 18:43 04/03/25 18:46 Temperature 36.7 C Temperature Source Temporal Artery Scan Pulse Rate 87 85 86 Respiratory Rate 18 19 Respiratory Effort / Characteristics Non-Labored Spontaneous Respiratory Depth Normal Respiratory Pattern Regular Blood Pressure 116/73 128/67 Blood Pressure Mean 87 106 Pulse Oximetry 93 96 Oxygen Delivery Method Room Air Sepsis Recent Fever Within 48 Hours No Sepsis New/Unexplained Change in Mental Status N/A Sepsis Action Taken by Nursing No Action Required 04/03/25 19:00 04/03/25 19:30 04/03/25 19:30 Temperature Temperature Source Pulse Rate 82 72 Respiratory Rate 20 16 Respiratory Effort / Characteristics Respiratory Depth Respiratory Pattern Blood Pressure 133/74 142/74 H Blood Pressure Mean 94 100 Pulse Oximetry 94 93 95 Oxygen Delivery Method Sepsis Recent Fever Within 48 Hours Sepsis New/Unexplained Change in Mental Status Sepsis Action Taken by Nursing 04/03/25 20:00 04/03/25 20:30 04/03/25 21:00 Temperature Temperature Source Pulse Rate 82 68 70 Respiratory Rate 13 17 15 Respiratory Effort / Characteristics Respiratory Depth Respiratory Pattern Blood Pressure 108/67 124/70 135/68 Blood Pressure Mean 73 97 97 Pulse Oximetry 98 98 96 Oxygen Delivery Method Sepsis Recent Fever Within 48 Hours Sepsis New/Unexplained Change in Mental Status Sepsis Action Taken by Nursing VITAL SIGNS - Vital signs and nursing notes were reviewed. GENERAL -89-year-old female appearing their stated age, who is in no acute distress. Communicates well with provider and answers questions appropriately. Patient's is at bedside. HEAD - Normocephalic, Atraumatic. No Alaniz's Sign or Raccoon's Eyes. No depressed skull fractures palpable. EYES - PERRL with EOMI bilaterally. Sclera anicteric. Conjunctiva pink and moist with no injection noted. EARS - No deformities of external structures noted on gross examination bilaterally. Patient has no noted erythema to her bilateral ear canals. No noted TM bulging or discharge. Patient wears hearing aids bilaterally and does have them here in the emergency department with her however I am unable to get them to turn on do believe that the battery is . Patient is able to hear with minimal difficulty without the use of the hearing aids as well. NOSE - Midline and without cyanosis. No epistaxis or purulent drainage noted. NECK - Neck with FROM. Supple to palpation. No lymphadenopathy noted. LUNGS - Chest wall symmetric without accessory muscle use, intercostals retractions, or central cyanosis. Normal vesicular breath sounds CTA B/L. No wheezes, rales, or rhonchi appreciated. CARDIAC - RRR with S1/S2. No murmur, rubs, or gallops appreciated. EXTREMITIES - No edema present. +4/5 strength noted in UE/LE bilaterally. NEUROLOGIC -Sensory intact to light touch throughout. PSYCH - A&Ox3 and cooperates fully with examiner. Pt is very pleasant and interacts well with examiner Course Administered Medications Discontinued Medications Ceftriaxone Sodium (Rocephin) 1,000 mg in 50 mls @ 100 mls/hr IV NOW STA Stop: 04/03/25 20:43 Last Infusion: 04/03/25 21:03 Dose: Infused Documented By: radha Admin: 04/03/25 20:24 Dose: 100 mls/hr Documented By: radha Medical Decision Making Differential Diagnosis Viral infection, sudden hearing loss, UTI, kidney stone, pyelonephritis, among others Medical Records Attestation: I reviewed the patient's medical records. Home Medications was personally reviewed by me Laboratory Data Attestation: I reviewed the patient's lab results. 04/03/25 18:44 04/03/25 18:44 Lab Results 04/03/25 04/03/25 Range/Units 18:44 19:42 WBC 7.53 (4.8-10.8) K/ul RBC 4.51 (4.20-5.40) M/uL Hgb 13.7 (12.0-16.0) g/dL Hct 40.6 (37.0-47.0) % MCV 90.0 (80.0-100.0) fL MCH 30.4 (25.0-34.0) pg MCHC 33.7 (32.0-36.0) g/dL RDW Std Deviation 48.7 H (36.4-46.3) fL RDW Coeff of Joel 14.8 H (11.5-14.5) % Plt Count 284 (130-400) K/uL MPV 9.8 (9.4-12.4) fL Immature Gran % (Auto) 0.7 % Neut % (Auto) 66.8 % Lymph % (Auto) 20.5 % Sebastian % (Auto) 9.2 % Eos % (Auto) 2.0 % Baso % (Auto) 0.8 % Neut # (Auto) 5.04 (1.40-6.50) K/uL Lymph # (Auto) 1.54 (1.20-3.40) K/uL Sebastian # (Auto) 0.69 H (0.11-0.59) K/uL Eos # (Auto) 0.15 (0.00-0.50) K/uL Baso # (Auto) 0.06 (0.00-0.20) K/uL Immature Gran # (Auto) 0.05 (0.01-0.20) K/uL Sodium 136 (136-145) mmol/L Potassium 4.2 (3.5-5.1) mmol/L Chloride 98 (98-107) mmol/L Carbon Dioxide 28 (21-32) mmol/L Anion Gap 10 (3-11) BUN 31 H (6-23) mg/dl Creatinine 0.88 (0.6-1.2) mg/dl Est Cr Clr Drug Dosing 33.9 ml/min eGFR 63.17 BUN/Creatinine Ratio 35.2 H (10-20) Glucose 185 H (70-99(Fasting)) mg/dl Calcium 10.1 (8.6-10.3) mg/dl Total Bilirubin 0.5 (0.2-1.0) mg/dl AST 23 (13-39) U/L ALT 15 (7-52) U/L Alkaline Phosphatase 132 H (34-104) U/L Total Protein 8.0 (6.0-8.3) gm/dl Albumin 4.3 (3.4-5.0) gm/dl Globulin 3.7 (2.5-4.0) gm/dl Albumin/Globulin Ratio 1.2 (0.9-2) Urine Color Yellow Urine Appearance Cloudy A (Clear) Urine pH 6.0 (4.5-7.5) Ur Specific Ethel 1.022 (1.000-1.030) Urine Protein Trace H (Negative) Urine Glucose (UA) Negative (Negative) Urine Ketones Trace H (Negative) Urine Blood Negative (Negative) Urine Nitrite Positive A (Negative) Urine Bilirubin Negative (Negative) Urine Urobilinogen Negative (Negative) Ur Leukocyte Esterase 2+ H (Negative) Urine WBC (Auto) >50 H (0-5) /hpf Urine RBC (Auto) 0-2 (0-2) /hpf U Hyaline Cast (Auto) 0-2 (0-2) /lpf U Epithel Cells (Auto) 3-5 H (0-2) /hpf Urine Bacteria (Auto) 4+ H (None Seen) Urine Comment SARS-CoV-2 (PCR) NEGATIVE (Negative) Influenza Type A (PCR) Negative (Neg) Influenza Type B (PCR) Negative (Neg) RSV (RT-PCR) Negative (Neg) MDM Narrative Patient is an 89-year-old female who presents to the emergency department with complaints of bilateral hearing loss that occurred bilaterally and suddenly at approximately 2 PM today. Patient also reports that she is experiencing urinary symptoms such as discomfort with urination, groin pain, and urinary frequency. Patient is concerned that she has urinary tract infection. Patient also notes that she has been generally weak and having some difficulty with intermittent confusion. Patient was evaluated by myself and findings were noted in the physical exam above. Patient was ordered IV placement, lab work, urinalysis, and viral swab. Patient's lab work resulted with a normal white blood cell count of 7.53. Patient had no indication of anemia with a hemoglobin of 13.7 hematocrit of 40.6. Patient had no significant electrolyte imbalance noted. Patient had a urinalysis that was completed and strongly indicative of infection. Patient also had a viral swab was completed negative for COVID, flu or RSV. I discussed these findings with the patient and the patient verbalized understanding. I discussed with the patient that her physical exam was not consistent with any concerning findings on her ear exam, she did not have any significant cerumen impaction or significant otitis media presentation. The patient and her at bedside, as well as myself attempted to get her hearing aids to work however it does appear that they may have batteries or be malfunctioning. I discussed with the patient that I did believe that her muffled hearing may be related to the malfunction of her hearing aids. I discussed with the patient that we would treat her for her urinary tract infection and started her on a dose of IV ceftriaxone. The patient reports that she does not feel comfortable going home as she does feel weak and does not feel that she is ambulating well. Patient's verbalized the same, noting that he is concerned that she will fall because of the weakness that she has been experiencing since developing these urinary tract infection symptoms. I spoke to Dr. Harris regarding this patient and gave him a full report on the patient's chief complaint, current status and the results of her urinalysis and lab work. He verbalized understanding and agreed to accept the patient for admission under his service. Please refer the [facility] hospitalist group's documentation for further evaluation and management of her symptoms. Impression Acute UTI (urinary tract infection), History of use of hearing aid in both ears, Weakness Discharge Plan Visit Data Chief Complaint: Hearing Loss Stated Complaint: BILATERAL HEARING LOSS W/ PREVIOUS GROIN PAIN ED Provider: Braulio Tran ED Midlevel Provider: Mary Chandra Discharge Problem: Acute UTI (urinary tract infection), History of use of hearing aid in both ears, Weakness Patient Disposition: Admitted As Inpatient Condition: Fair Forms Stand Alone Forms: My [facility], Important Visit Information Prescriptions Prescriptions: No Action (DME) blood sugar diagnostic Strip See Dose Instructions .ROUTE .MEDSUPPLY Qty: 200 3RF Rx Instructions: test twice daily metformin 500 mg tablet 500 mg PO BID Qty: 180 3RF simvastatin 10 mg tablet 10 mg PO HS Qty: 90 3RF escitalopram oxalate 10 mg tablet 10 mg PO HS Qty: 90 3RF (DME) blood-glucose meter [OneTouch UltraMini] kit See Dose Instructions .ROUTE .MEDSUPPLY Qty: 1 0RF Dose Instruction: As directed Rx Instructions: As directed multivitamin [Multiple Vitamins] tablet 1 tab PO DAILY letrozole 2.5 mg tablet 2.5 mg PO QAM ascorbate calcium (vitamin C) 500 mg tablet 500 mg PO DAILY cholecalciferol (vitamin D3) 25 mcg (1,000 unit) capsule 25 mcg PO DAILY Gemtesa 75 mg tablet 75 mg PO DAILY Referrals Referrals: Andreae Alcala DO [Primary Care Provider] - ED DC CONDITION Conditon at Discharge Condition at Discharge: Fair
[2025-04-03 19:12] LABS: Hematocrit (blood only) 40.6 % (37.0-47.0); Hemoglobin 13.7 g/dL (12.0-16.0); Immature Granulocytes # (auto) 0.05 K/uL (0.01-0.20); Immature Granulocytes % (auto) 0.7 %; Mean Corpuscular Hemoglobin 30.4 pg (25.0-34.0); Mean Corpuscular Volume 90.0 fL (80.0-100.0); Platelet Count 284 K/uL (130-400); RDW Standard Deviation 48.7 fL (36.4-46.3); Red Blood Count 4.51 M/uL (4.20-5.40); White Blood Count 7.53 K/ul (4.8-10.8)
[2025-04-03 19:28] LABS: Alanine Aminotransferase 15.0 U/L (7-52); Anion Gap 10.0 (3-11); Bilirubin,Total 0.5 mg/dl (0.2-1.0); Blood Urea Nitrogen 31.0 mg/dl (6-23); Calcium 10.1 mg/dl (8.6-10.3); Carbon Dioxide 28.0 mmol/L (21-32); Chloride 98.0 mmol/L (98-107); Creatinine Clr Calc Pharmacy 33.9 ml/min; Glucose 185.0 mg/dl (70-99(Fasting)); Potassium 4.2 mmol/L (3.5-5.1); Sodium 136.0 mmol/L (136-145)
[2025-04-03 19:29] LABS: Albumin Globulin Ratio 1.2 (0.9-2); Albumin Level 4.3 gm/dl (3.4-5.0); Alkaline Phosphatase 132.0 U/L (34-104); Globulin 3.7 gm/dl (2.5-4.0); Total Protein 8.0 gm/dl (6.0-8.3)
[2025-04-03 19:54] LABS: Appearance Urine Cloudy (Clear); Bacteria Urine Automated 4+ (None Seen); Cast Urine Automated 0-2 /lpf (0-2); Glucose Urine UA Negative (Negative); RBC Urine Automated 0-2 /hpf (0-2); WBC Urine Automated >50 /hpf (0-5)
[2025-04-03] MEDS: cefTRIAXone SODIUM 1,000 MG/50 ML BAG IV STA (20:24)
[2025-04-03 20:34] LABS: Influenza A virus by PCR Negative (Neg); Influenza B virus by PCR Negative (Neg); SARS CoV2 RNA(COVID-19) Ceph NEGATIVE (Negative)
--- NOTE | 2025-04-03 22:16 | Emergency Department Note ---
ED Visit Note I was consulted in regards to the patient's presentation and plan of care by the Advanced Practice Provider. I engaged in a detailed/meaningful discussion with the Advanced Practice Provider in regards to this patient's workup and plan of care. I performed a substantiative portion of the medical decision making following discussion with the Advanced Practice Provider. Please see the Advanced Practice Provider's separate documentation for full details of the patient's visit. I agree with the assessment and plan of Mary Chandra NP. Braulio Tran, DO Emergency Medicine .
--- NOTE | 2025-04-03 23:04 | History & Physical Report ---
Date of Service April 03, 2025 Assessment & Plan (1) Acute UTI (urinary tract infection): Plan: 89-year-old female with past med history significant for type 2 diabetes, hyperlipidemia, diabetic peripheral neuropathy, hypertension, chronic cerebral ischemia, peripheral vascular disease, diverticulosis, GERD, urge incontinence of urine, CKD stage III, history of basal cell carcinoma, osteoarthritis, sensorineural hearing loss, mild cognitive impairment, ambulatory dysfunction and ambulates with a walker who lives at home with her comes because of decreased hearing and found to have UTI. As per son patient was sitting close to TV with loud sound but she was not able to hear properly and they were worried about hearing loss and brought her to the ER. Seems that her hearing aids batteries are down. But son thinks still her hearing is less than her usual. But patient seems comfortable. Patient hearing okay with slightly louder voices without hearing aids currently.. And able to answer okay. Has some weakness going on. Complains of left groin pain. Son thinks lately patient is having some difficulty ambulation and difficulty feeding herself. No fevers. No cough. No runny nose or sore throat. No chest pain or shortness of breath. No nausea. No abdominal pain. Normal bowel and bladder movements. Hemodynamics are okay. Patient was admitted in July 2024 for for UTI and confusion and was treated for pansensitive E. coli. Acute UTI History of pansensitive E. coli Empiric Rocephin Gentle fluids Will follow cultures Questionable hearing loss Currently without hearing aids patient able to hear okay Question of hearing aids not working Will monitor Mild cognitive impairment Monitoring delirium Depression On Lexapro Diabetes Hold metformin Sliding scale Will monitor Hyperlipidemia On statin History of breast cancer On letrozole Follow-up with heme-onc History of hypertension Last admission was on amlodipine Seems was stopped by PCP as patient was having occasional lightheadedness and blood pressure was on the lower end of normal Will monitor Urgent continence On Gemtesa MRI scan done for hydrocephalus was okay Left groin pain if not improving can do ct scan DVT prophylaxis SCDs Heparin subcu Disposition Med/telemetry CODE STATUS DNR/DNI as per my discussion with the patient. and son in the room. History of Present Illness Chief Complaint: Presents for decreased hearing and found to have UTI Primary Care Provider: Andreea Alcala DO 89-year-old female with past med history significant for type 2 diabetes, hyperlipidemia, diabetic peripheral neuropathy, hypertension, chronic cerebral ischemia, peripheral vascular disease, diverticulosis, GERD, urge incontinence of urine, CKD stage III, history of basal cell carcinoma, osteoarthritis, sensorineural hearing loss, mild cognitive impairment, ambulatory dysfunction and ambulates with a walker who lives at home with her comes because of decreased hearing and found to have UTI. As per son patient was sitting close to TV with loud sound but she was not able to hear properly and they were worried about hearing loss and brought her to the ER. Seems that her hearing aids batteries are down. But son thinks still her hearing is less than her usual. But patient seems comfortable. Patient hearing okay with slightly louder voices without hearing aids currently.. And able to answer okay. Has some weakness going on. Complains of left groin pain. Son thinks lately patient is having some difficulty ambulation and difficulty feeding herself. No fevers. No cough. No runny nose or sore throat. No chest pain or shortness of breath. No nausea. No abdominal pain. Normal bowel and bladder movements. Hemodynamics are okay. Patient was admitted in July 2024 for for UTI and confusion and was treated for pansensitive E. coli. Past medical history. As mentioned above. Past surgical history. Breast biopsy. Colonoscopy and EGD. EGD with endoscopic ultrasound. Ligation of oviduct. Hammertoe repair. Tonsillectomy. Social history. . Quit smoking 1969. Smoked for 18 years. Alcohol rarely. No drug use. Family history. Father had cancer. Sister had cancer. Mother had diabetes and hypertension. Aunt had cancer. Allergies Allergy/AdvReac Type Severity Reaction Status Date / Time codeine AdvReac Severe Hallucinati Verified 04/03/25 19:22 ons hydrocodone [From Vicodin] AdvReac Severe Hallucinati Verified 04/03/25 19:22 ons oxycodone AdvReac Severe Hallucinati Verified 04/03/25 19:22 ons tramadol AdvReac Intermediate GI upset Verified 04/03/25 19:22 Home Medications Medication Instructions Recorded Confirmed Type multivitamin (Multiple Vitamins 1 tab PO DAILY 11/28/18 04/03/25 History tablet) letrozole 2.5 mg tablet 2.5 mg PO QAM 02/14/19 04/03/25 History blood-glucose meter (OneTouch #1 ea 02/15/19 03/15/25 Rx UltraMini kit) blood sugar diagnostic #200 ea 11/24/20 03/15/25 Rx ascorbate calcium (vitamin C) 500 500 mg PO DAILY 05/31/22 04/03/25 History mg tablet metformin 500 mg tablet 500 mg PO BID #180 tabs 08/18/22 04/03/25 Rx simvastatin 10 mg tablet 10 mg PO HS #90 tabs 08/18/22 04/03/25 Rx cholecalciferol (vitamin D3) 25 25 mcg PO DAILY 11/21/23 04/03/25 History mcg (1,000 unit) capsule escitalopram oxalate 10 mg tablet 10 mg PO HS #90 tabs 09/19/24 04/03/25 Rx vibegron 75 mg tablet (Gemtesa) 75 mg PO DAILY 04/03/25 04/03/25 History Past Med/Surg History Problem List (Updated 04/04/25 @ 00:08 by Ananya Santiago) Weakness (Acute) History of use of hearing aid in both ears (Acute) Acute UTI (urinary tract infection) (Acute) Cognitive changes Urinary incontinence (Chronic) Magnetic gait Anxiety GERD (gastroesophageal reflux disease) Chronic kidney disease, stage III (moderate) MDD (major depressive disorder) Acute dehydration (Acute) Acute confusion (Acute) Hypertension (Acute) Hyperlipidemia (Acute) Diabetes mellitus type 2 in nonobese (Acute 09/04/11) NIDDM Mild cognitive impairment Medical History Memory loss Diabetes Arthritis Chronic cerebral ischemia Asymmetric SNHL (sensorineural hearing loss) Asymptomatic menopausal state Brachial plexopathy Breast cancer 2016 right er/pr+, 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 Generalized osteoarthritis of multiple sites Insomnia Lower back pain Lumbosacral radiculopathy at L4 Neuropathy (09/04/11) Urge incontinence of urine Urinary urgency Ventral hernia Tachycardia (09/04/11) Rotator cuff tear arthropathy of right shoulder DVT prophylaxis Encounter for pre-operative examination History of chemotherapy History of memory loss History of anemia History of breast cancer lobular hyperplasia with atypical and fibrocystic changes Excessive cerumen in right ear canal Gastric ulcer Per remote records, pt denies Incisional hernia reason for upcoming hernia repair Surgical History History of incisional hernia repair (11/04/20) Incisional hernia, incarceration of omentum. Dr. 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) History of cardiac cath 2000 ([facility]) > no stents History of bilateral tubal ligation History of colonoscopy History of right shoulder replacement History of left knee replacement Hx of tonsillectomy 195 S/P tonsillectomy S/P mastectomy, bilateral (~2016) simple mastectomy S/P breast biopsy S/P foot surgery right S/P cataract surgery both eyes History of back surgery lumbar fusion Family History Sister Breast cancer Sister Breast cancer Aunt Colorectal cancer Family/Other Colorectal cancer Mother Diabetes Dementia Hypertension Father Leukemia Other No family history of adverse response to anesthesia Denies family history of Ovarian cancer Prostate cancer Myocardial infarction Social History Smoking Status: Former smoker Tobacco Type: Cigarettes Second Hand Exposure: No; Do You Dip or Chew Tobacco: No; Hx Alcohol Use: Yes Alcohol type: wine Alcohol Intake Frequency Comment: occassionally Hx Substance Use: No Preferred Language: Mongolian Communication Ability: Effective Visual Impairment: No Limitations Hearing Ability: Hard of Hearing 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 Beliefs That Will Affect Care: None marital status: Current Living Situation: Spouse Current Living Situation Comment: [facility] current occupational status: retired How many Children do You have: 3 Feels Safe at Home: Yes Diet: regular during the past year weight has: decreased > 10 lbs Physical Activity Frequency: 3-4 Times per Week Physical Activity Frequency Comment: regularly Seatbelt Use: always Assistive Devices: Hearing Aid - Bilateral and Walker Review of Systems Review of Systems: All systems reviewed & are unremarkable except as noted in HPI & below Physical Exam Physical Exam: General-Not in acute distress Head- atraumatic Eyes- PERRL. ENT- oropharynx clear Neck- supple, no JVD. Lungs- clear to auscultation no wheezing or crackles Heart- regular rhythm; no murmur, no gallop. Abdomen- normal bowel sounds, soft, nontender, no distension Extremities- no pretibial edema, no erythema seen Neuro- alert, oriented PERRL, no facial palsy; no dysarthria; moves extremities Results & Data Results & Data Vital Signs (Past 12 Hours) Vital Signs Temp Pulse Resp BP Pulse Ox O2 Del Method 04/03/25 22:46 74 04/03/25 22:07 79 18 122/68 98 04/03/25 21:30 73 22 131/59 L 98 04/03/25 21:00 70 15 135/68 96 04/03/25 20:30 68 17 124/70 98 04/03/25 20:00 82 13 108/67 98 04/03/25 19:30 95 04/03/25 19:30 72 16 142/74 H 93 04/03/25 19:00 82 20 133/74 94 04/03/25 18:46 86 04/03/25 18:43 85 19 128/67 96 04/03/25 18:29 36.7 C 87 18 116/73 93 Room Air Diagnostic Findings Laboratory Results WBC 7.53 K/ul (4.8-10.8) 04/03/25 18:44 RBC 4.51 M/uL (4.20-5.40) 04/03/25 18:44 Hgb 13.7 g/dL (12.0-16.0) 04/03/25 18:44 Hct 40.6 % (37.0-47.0) 04/03/25 18:44 MCV 90.0 fL (80.0-100.0) 04/03/25 18:44 MCH 30.4 pg (25.0-34.0) 04/03/25 18:44 MCHC 33.7 g/dL (32.0-36.0) 04/03/25 18:44 RDW Std Deviation 48.7 fL (36.4-46.3) H 04/03/25 18:44 RDW Coeff of Joel 14.8 % (11.5-14.5) H 04/03/25 18:44 Plt Count 284 K/uL (130-400) 04/03/25 18:44 MPV 9.8 fL (9.4-12.4) 04/03/25 18:44 Immature Gran % (Auto) 0.7 % 04/03/25 18:44 Neut % (Auto) 66.8 % 04/03/25 18:44 Lymph % (Auto) 20.5 % 04/03/25 18:44 [place] % (Auto) 9.2 % 04/03/25 18:44 Eos % (Auto) 2.0 % 04/03/25 18:44 Baso % (Auto) 0.8 % 04/03/25 18:44 Neut # (Auto) 5.04 K/uL (1.40-6.50) 04/03/25 18:44 Lymph # (Auto) 1.54 K/uL (1.20-3.40) 04/03/25 18:44 [place] # (Auto) 0.69 K/uL (0.11-0.59) H 04/03/25 18:44 Eos # (Auto) 0.15 K/uL (0.00-0.50) 04/03/25 18:44 Baso # (Auto) 0.06 K/uL (0.00-0.20) 04/03/25 18:44 Immature Gran # (Auto) 0.05 K/uL (0.01-0.20) 04/03/25 18:44 Sodium 136 mmol/L (136-145) 04/03/25 18:44 Potassium 4.2 mmol/L (3.5-5.1) 04/03/25 18:44 Chloride 98 mmol/L (98-107) 04/03/25 18:44 Carbon Dioxide 28 mmol/L (21-32) 04/03/25 18:44 Anion Gap 10 (3-11) 04/03/25 18:44 BUN 31 mg/dl (6-23) H 04/03/25 18:44 Creatinine 0.88 mg/dl (0.6-1.2) 04/03/25 18:44 Est Cr Clr Drug Dosing 33.9 ml/min 04/03/25 18:44 eGFR 63.17 04/03/25 18:44 BUN/Creatinine Ratio 35.2 (10-20) H 04/03/25 18:44 Glucose 185 mg/dl (70-99(Fasting)) H 04/03/25 18:44 Calcium 10.1 mg/dl (8.6-10.3) 04/03/25 18:44 Total Bilirubin 0.5 mg/dl (0.2-1.0) 04/03/25 18:44 AST 23 U/L (13-39) 04/03/25 18:44 ALT 15 U/L (7-52) 04/03/25 18:44 Alkaline Phosphatase 132 U/L (34-104) H 04/03/25 18:44 Total Protein 8.0 gm/dl (6.0-8.3) 04/03/25 18:44 Albumin 4.3 gm/dl (3.4-5.0) 04/03/25 18:44 Globulin 3.7 gm/dl (2.5-4.0) 04/03/25 18:44 Albumin/Globulin Ratio 1.2 (0.9-2) 04/03/25 18:44 Urine Color Yellow 04/03/25 19:42 Urine Appearance Cloudy (Clear) A 04/03/25 19:42 Urine pH 6.0 (4.5-7.5) 04/03/25 19:42 Ur Specific [place] 1.022 (1.000-1.030) 04/03/25 19:42 Urine Protein Trace (Negative) H 04/03/25 19:42 Urine Glucose (UA) Negative (Negative) 04/03/25 19:42 Urine Ketones Trace (Negative) H 04/03/25 19:42 Urine Blood Negative (Negative) 04/03/25 19:42 Urine Nitrite Positive (Negative) A 04/03/25 19:42 Urine Bilirubin Negative (Negative) 04/03/25 19:42 Urine Urobilinogen Negative (Negative) 04/03/25 19:42 Ur Leukocyte Esterase 2+ (Negative) H 04/03/25 19:42 Urine WBC (Auto) >50 /hpf (0-5) H 04/03/25 19:42 Urine RBC (Auto) 0-2 /hpf (0-2) 04/03/25 19:42 U Hyaline Cast (Auto) 0-2 /lpf (0-2) 04/03/25 19:42 U Epithel Cells (Auto) 3-5 /hpf (0-2) H 04/03/25 19:42 Urine Bacteria (Auto) 4+ (None Seen) H 04/03/25 19:42 Urine Comment 04/03/25 19:42 SARS-CoV-2 (PCR) NEGATIVE (Negative) 04/03/25 19:42 Influenza Type A (PCR) Negative (Neg) 04/03/25 19:42 Influenza Type B (PCR) Negative (Neg) 04/03/25 19:42 RSV (RT-PCR) Negative (Neg) 04/03/25 19:42 Code Status & VTE Plan VTE Prophylaxis Plan VTE Prophylaxis will be ordered: Yes
[2025-04-04] MEDS ORDERED: CARBOHYDRATES FOR HYPOGLYCEMIA PO PRN (00:24)
[2025-04-04] MEDS ORDERED: DEXTROSE 50% 50 ML SYRINGE IV PRN (00:24)
[2025-04-04] MEDS ORDERED: NITROGLYCERIN SL 0.4 MG/TAB TAB SL PRN (00:24)
[2025-04-04] MEDS ORDERED: GLUCAGON FOR INJ 1 MG VIAL SQ PRN (00:24)
[2025-04-04] MEDS ORDERED: GLUCOSE 10 TAB/TUBE PO PRN (00:24)
[2025-04-04] MEDS ORDERED: GLUCOSE 40% GEL 15 GM TUBE PO PRN (00:24)
[2025-04-04] MEDS: ACETAMINOPHEN 325 MG TAB PO PRN (00:44)
[2025-04-04] MEDS: SODIUM CHLORIDE 0.9% 1,000 ML IV SCH (00:45)
[2025-04-04 05:55] LABS: Hematocrit (blood only) 36.1 % (37.0-47.0); Hemoglobin 12.2 g/dL (12.0-16.0); Immature Granulocytes # (auto) 0.02 K/uL (0.01-0.20); Immature Granulocytes % (auto) 0.3 %; Mean Corpuscular Hemoglobin 30.7 pg (25.0-34.0); Mean Corpuscular Volume 90.7 fL (80.0-100.0); Platelet Count 257 K/uL (130-400); RDW Standard Deviation 48.5 fL (36.4-46.3); Red Blood Count 3.98 M/uL (4.20-5.40); White Blood Count 7.36 K/ul (4.8-10.8)
[2025-04-04 06:12] LABS: Anion Gap 6.0 (3-11); Blood Urea Nitrogen 28.0 mg/dl (6-23); Calcium 9.5 mg/dl (8.6-10.3); Carbon Dioxide 29.0 mmol/L (21-32); Chloride 103.0 mmol/L (98-107); Creatinine Clr Calc Pharmacy 41.8 ml/min; Glucose 130.0 mg/dl (70-99(Fasting)); Magnesium 2.0 mg/dl (1.7-2.4); Potassium 4.0 mmol/L (3.5-5.1); Sodium 138.0 mmol/L (136-145)
[2025-04-04 07:52] LABS: Hemoglobin A1C 6.7 % (4.5-5.6)
[2025-04-04] MEDS: CHOLECALCIFEROL 25 MCG (1000 UNITS) TAB PO SCH (08:25)
[2025-04-04] MEDS: ASCORBIC ACID 500 MG TAB PO SCH (08:25)
[2025-04-04] MEDS: LETROZOLE 2.5 MG TAB PO SCH (08:25)
[2025-04-04] MEDS: MULTIVITAMIN TAB PO SCH (08:25)
[2025-04-04] MEDS: VIBEGRON 75 MG TAB PO SCH (08:25)
[2025-04-04] MEDS: HEPARIN SOD 5,000 UNIT/0.5 ML VIAL SQ SCH (08:31)
[2025-04-04] MEDS: LABETALOL HCL IV 5 MG/ML 20ML IV PRN (08:53)
[2025-04-04] MEDS: INSULIN ASPART PER UNIT CHARGE SC SCH (09:27)
--- NOTE | 2025-04-04 11:45 | Hospitalist Progress Note ---
Date of Service April 04, 2025 Assessment & Plan (1) Acute UTI (urinary tract infection): Plan: 89 yo F w/ PMH of type 2 diabetes, hyperlipidemia, diabetic peripheral neuropathy, hypertension, chronic cerebral ischemia, peripheral vascular disease, diverticulosis, GERD, urge incontinence of urine, CKD stage III, history of basal cell carcinoma, osteoarthritis, sensorineural hearing loss, mild cognitive impairment, ambulatory dysfunction and ambulates with a walker who lives at home with her comes because of decreased hearing and found to have UTI. As per son patient was sitting close to TV with loud sound but she was not able to hear properly and they were worried about hearing loss and brought her to the ER. Seems that her hearing aids batteries are down. But son thinks still her hearing is less than her usual. But patient seems comfortable. Patient hearing okay with slightly louder voices without hearing aids currently. And able to answer okay. Has some weakness going on. Complains of left groin pain. Son thinks lately patient is having some difficulty ambulation and difficulty feeding herself. No fevers. No cough. No runny nose or sore throat. No chest pain or shortness of breath. No nausea. No abdominal pain. Normal bowel and bladder movements. Hemodynamics are okay. Patient was admitted in July 2024 for for UTI and confusion and was treated for pansensitive E. coli. Acute UTI History of pansensitive E. coli Empiric Rocephin Gentle fluids Will follow cultures Questionable hearing loss Currently without hearing aids patient able to hear okay Question of hearing aids not working Will monitor. ENT as OP. Mild cognitive impairment: Monitor for delirium Depression: On Lexapro Diabetes: Hold metformin. Sliding scale. Will monitor Hyperlipidemia: On statin History of breast cancer: On letrozole. Follow-up with heme-onc History of hypertension Last admission was on amlodipine Seems was stopped by PCP as patient was having occasional lightheadedness and blood pressure was on the lower end of normal Will monitor Urgent continence On Gemtesa MRI scan done for hydrocephalus was okay Left groin pain: if not improving can do ct scan, pt denies pain today. DVT prophylaxis: Heparin subcu Disposition: Med/telemetry CODE STATUS DNR/DNI Admission and Anticipated Discharge Date Admission Date: April 03, 2025 Subjective Patient was seen and examined at bedside. Patient was lying in bed, on room air, NAD, resting comfortably. Patient reports increased frequency of urine, denies pain in lower belly, reports eating okay. Reports moving bowels yesterday. Physical Exam Physical Exam: General-Not in acute distress Head- atraumatic Eyes- PERRL. ENT- oropharynx clear Neck- supple, no JVD. Lungs- clear to auscultation no wheezing or crackles Heart- regular rhythm; no murmur, no gallop. Abdomen- normal bowel sounds, soft, nontender, no distension Extremities- no pretibial edema, no erythema seen Neuro- alert, oriented PERRL, no facial palsy; no dysarthria; moves extremities Results & Data Results & Data Vital Signs (Past 12 Hours) Vital Signs Temp Pulse Pulse Resp BP BP BP 04/04/25 11:35 36.5 C 61 17 133/76 04/04/25 09:27 68 115/69 04/04/25 08:53 72 188/85 H 04/04/25 07:56 36.6 C 76 17 188/85 H 04/04/25 07:11 72 04/04/25 03:04 36.5 C 69 18 164/84 H 04/04/25 00:24 36.6 C 68 14 177/75 H 04/04/25 00:23 71 04/03/25 23:52 72 16 157/83 H Pulse Ox O2 Del Method 04/04/25 11:35 95 Room Air 04/04/25 09:27 04/04/25 08:53 04/04/25 07:56 95 Room Air 04/04/25 07:11 04/04/25 03:04 94 Room Air 04/04/25 00:24 97 Room Air 04/04/25 00:23 04/03/25 23:52 95 Room Air
[2025-04-04] MEDS: cefTRIAXone SODIUM 2,000 MG/50 ML BAG IV SCH (19:28)
[2025-04-04] MEDS: ESCITALOPRAM OXALATE 10 MG TAB PO SCH (20:31)
[2025-04-04] MEDS: SIMVASTATIN 10 MG TAB PO SCH (20:31)
[2025-04-05 06:09] LABS: Hematocrit (blood only) 40.1 % (37.0-47.0); Hemoglobin 13.4 g/dL (12.0-16.0); Mean Corpuscular Hemoglobin 30.5 pg (25.0-34.0); Mean Corpuscular Volume 91.1 fL (80.0-100.0); Platelet Count 272 K/uL (130-400); RDW Standard Deviation 49.1 fL (36.4-46.3); Red Blood Count 4.40 M/uL (4.20-5.40); White Blood Count 7.74 K/ul (4.8-10.8)
[2025-04-05 06:29] LABS: Anion Gap 8.0 (3-11); Blood Urea Nitrogen 26.0 mg/dl (6-23); Calcium 9.5 mg/dl (8.6-10.3); Carbon Dioxide 30.0 mmol/L (21-32); Chloride 100.0 mmol/L (98-107); Creatinine Clr Calc Pharmacy 34.1 ml/min; Glucose 147.0 mg/dl (70-99(Fasting)); Potassium 4.1 mmol/L (3.5-5.1); Sodium 138.0 mmol/L (136-145)
--- NOTE | 2025-04-05 16:33 | Hospitalist Progress Note ---
Date of Service April 05, 2025 Assessment & Plan (1) Acute UTI (urinary tract infection): Plan: 89 yo F w/ PMH of type 2 diabetes, hyperlipidemia, diabetic peripheral neuropathy, hypertension, chronic cerebral ischemia, peripheral vascular disease, diverticulosis, GERD, urge incontinence of urine, CKD stage III, history of basal cell carcinoma, osteoarthritis, sensorineural hearing loss, mild cognitive impairment, ambulatory dysfunction and ambulates with a walker who lives at home with her comes because of decreased hearing and found to have UTI. As per son patient was sitting close to TV with loud sound but she was not able to hear properly and they were worried about hearing loss and brought her to the ER. Seems that her hearing aids batteries are down. But son thinks still her hearing is less than her usual. But patient seems comfortable. Patient hearing okay with slightly louder voices without hearing aids currently. And able to answer okay. Has some weakness going on. Complains of left groin pain. Son thinks lately patient is having some difficulty ambulation and difficulty feeding herself. No fevers. No cough. No runny nose or sore throat. No chest pain or shortness of breath. No nausea. No abdominal pain. Normal bowel and bladder movements. Hemodynamics are okay. Patient was admitted in July 2024 for for UTI and confusion and was treated for pansensitive E. coli. Acute UTI History of pansensitive E. coli UCx w/ e coli, c/w Rocephin 04/04 Questionable hearing loss Currently without hearing aids patient able to hear okay Question of hearing aids not working Will monitor. ENT as OP. Mild cognitive impairment: Monitor for delirium, high risk d/t underlying cognitive impairment, elderly age and hospitalization. Depression: On Lexapro Diabetes: Hold metformin. Sliding scale. Will monitor Hyperlipidemia: On statin History of breast cancer: On letrozole. Follow-up with heme-onc History of hypertension Last admission was on amlodipine Seems was stopped by PCP as patient was having occasional lightheadedness and blood pressure was on the lower end of normal Will monitor Urgent continence On Gemtesa MRI scan done for hydrocephalus was okay Left groin pain: seems resolved. DVT prophylaxis: Heparin subcu Disposition: Med/telemetry CODE STATUS DNR/DNI pt's dtr Stacy was given phone call, updated on plan of care, answered all her questions, she voiced understanding. Admission and Anticipated Discharge Date Admission Date: April 03, 2025 Subjective Patient was seen and examined at bedside. Patient was sitting up in bed, on room air, NAD, working w/ PT Pt appears some confused today, eating ok per RN. didn't sleep well overnight per rn. Physical Exam Physical Exam: General-Not in acute distress Head- atraumatic Eyes- PERRL. ENT- oropharynx clear Neck- supple, no JVD. Lungs- clear to auscultation no wheezing or crackles Heart- regular rhythm; no murmur, no gallop. Abdomen- normal bowel sounds, soft, nontender, no distension Extremities- no pretibial edema, no erythema seen Neuro- alert, oriented PERRL, no facial palsy; no dysarthria; moves extremities Results & Data Results & Data Vital Signs (Past 12 Hours) Vital Signs Temp Pulse Pulse Resp BP BP Pulse Ox 04/05/25 15:41 36.8 C 78 16 128/73 95 04/05/25 14:07 76 04/05/25 11:26 36.4 C L 66 16 138/72 94 04/05/25 07:40 75 04/05/25 07:27 36.5 C 61 17 151/91 H 96 O2 Del Method 04/05/25 15:41 Room Air 04/05/25 14:07 04/05/25 11:26 Room Air 04/05/25 07:40 04/05/25 07:27 Room Air
[2025-04-05] MEDS: MELATONIN 3 MG TAB PO PRN (21:06)
--- NOTE | 2025-04-06 12:11 | Hospitalist Progress Note ---
Date of Service April 06, 2025 Assessment & Plan (1) Acute UTI (urinary tract infection): Plan: 89 yo F w/ PMH of type 2 diabetes, hyperlipidemia, diabetic peripheral neuropathy, hypertension, chronic cerebral ischemia, peripheral vascular disease, diverticulosis, GERD, urge incontinence of urine, CKD stage III, history of basal cell carcinoma, osteoarthritis, sensorineural hearing loss, mild cognitive impairment, ambulatory dysfunction and ambulates with a walker who lives at home with her comes because of decreased hearing and found to have UTI. As per son patient was sitting close to TV with loud sound but she was not able to hear properly and they were worried about hearing loss and brought her to the ER. Seems that her hearing aids batteries are down. But son thinks still her hearing is less than her usual. But patient seems comfortable. Patient hearing okay with slightly louder voices without hearing aids currently. And able to answer okay. Has some weakness going on. Complains of left groin pain. Son thinks lately patient is having some difficulty ambulation and difficulty feeding herself. No fevers. No cough. No runny nose or sore throat. No chest pain or shortness of breath. No nausea. No abdominal pain. Normal bowel and bladder movements. Hemodynamics are okay. Patient was admitted in July 2024 for for UTI and confusion and was treated for pansensitive E. coli. Acute UTI History of pansensitive E. coli UCx w/ e coli, c/w Rocephin 04/04 Questionable hearing loss Currently without hearing aids patient able to hear okay Question of hearing aids not working Will monitor. ENT as OP. Mild cognitive impairment: Monitor for delirium, high risk d/t underlying cognitive impairment, elderly age and hospitalization. will increase melatonin dose and use is tessa to promote night sleep. Depression: On Lexapro Diabetes: Hold metformin. Sliding scale. Will monitor Hyperlipidemia: On statin History of breast cancer: On letrozole. Follow-up with heme-onc History of hypertension Last admission was on amlodipine Seems was stopped by PCP as patient was having occasional lightheadedness and blood pressure was on the lower end of normal Will monitor Urgent continence On Gemtesa MRI scan done for hydrocephalus was okay Left groin pain: seems resolved. DVT prophylaxis: Heparin subcu Disposition: Med/telemetry CODE STATUS DNR/DNI pt's dtr Stacy was given phone call 04/05, updated on plan of care, answered all her questions, she voiced understanding. Admission and Anticipated Discharge Date Admission Date: April 03, 2025 Subjective Patient was seen and examined at bedside. Patient was sitting up in bed, on room air, NAD, appears confused. Per RN, pt was oriented last afternoon and evening, then started to get confused, didn't have good night sleep, and is sleepy/confused in AM. Pt has been eating good per RN. Physical Exam Physical Exam: General-Not in acute distress Head- atraumatic Eyes- PERRL. ENT- oropharynx clear Neck- supple, no JVD. Lungs- clear to auscultation no wheezing or crackles Heart- regular rhythm; no murmur, no gallop. Abdomen- normal bowel sounds, soft, nontender, no distension Extremities- no pretibial edema, no erythema seen Neuro- alert, oriented PERRL, no facial palsy; no dysarthria; moves extremities Results & Data Results & Data Vital Signs (Past 12 Hours) Vital Signs Temp Pulse Pulse Resp BP BP Pulse Ox 04/06/25 11:17 36.6 C 50 L 20 127/66 95 04/06/25 08:05 36.7 C 62 20 147/73 H 94 04/06/25 07:36 59 L 04/06/25 03:38 36.4 C L 67 18 135/74 99 O2 Del Method 04/06/25 11:17 Room Air 04/06/25 08:05 Room Air 04/06/25 07:36 04/06/25 03:38 Room Air
--- NOTE | 2025-04-06 17:18 | CT Scan Report ---
HISTORY: Confusion. TECHNIQUE: CT of the head without contrast. Images are presented in axial, sagittal, and coronal reformats. COMPARISON: Brain MRI dated105/23/2024. Head CT dated 08/03/2020. FINDINGS: No evidence of intracranial hemorrhage, abnormal extra axial fluid collection, mass effect, or midline shift. Moderate volume loss and chronic microvascular ischemic changes.Ventricular caliber is appropriate. Fourth ventricle is midline. Basal cisterns are patent.Vasquez-white differentiation is maintained. Intracranial atherosclerotic vascular calcifications. Partially empty configuration of the sella. Globes and orbits are unremarkable.Soft tissues about the skull base and scalp are unremarkable.Paranasal sinuses and mastoid air cells are clear. No calvarial fracture. IMPRESSION: No acute intracranial findings. ACT 112: Positive. There are findings on this exam that require communication between the performing entity and the patient following Patient Test Result Information Act ([place] ACT 112) guidelines. Electronically signed by Lino Bains 04-06-2025 5:18 PM
[2025-04-06] MEDS: MELATONIN 3 MG TAB PO SCH (20:37)
[2025-04-07 09:02] LABS: Hematocrit (blood only) 39.0 % (37.0-47.0); Hemoglobin 13.3 g/dL (12.0-16.0); Mean Corpuscular Hemoglobin 31.1 pg (25.0-34.0); Mean Corpuscular Volume 91.1 fL (80.0-100.0); Platelet Count 285 K/uL (130-400); RDW Standard Deviation 48.2 fL (36.4-46.3); Red Blood Count 4.28 M/uL (4.20-5.40); White Blood Count 7.62 K/ul (4.8-10.8)
[2025-04-07 09:19] LABS: Anion Gap 9.0 (3-11); Blood Urea Nitrogen 35.0 mg/dl (6-23); Calcium 9.4 mg/dl (8.6-10.3); Carbon Dioxide 28.0 mmol/L (21-32); Chloride 99.0 mmol/L (98-107); Creatinine Clr Calc Pharmacy 35.2 ml/min; Glucose 156.0 mg/dl (70-99(Fasting)); Magnesium 2.1 mg/dl (1.7-2.4); Potassium 4.2 mmol/L (3.5-5.1); Sodium 136.0 mmol/L (136-145)
--- NOTE | 2025-04-07 12:01 | Hospitalist Progress Note ---
Date of Service April 07, 2025 Assessment & Plan (1) Acute UTI (urinary tract infection): Plan: 89 yo F w/ PMH of type 2 diabetes, hyperlipidemia, diabetic peripheral neuropathy, hypertension, chronic cerebral ischemia, peripheral vascular disease, diverticulosis, GERD, urge incontinence of urine, CKD stage III, history of basal cell carcinoma, osteoarthritis, sensorineural hearing loss, mild cognitive impairment, ambulatory dysfunction and ambulates with a walker who lives at home with her comes because of decreased hearing and found to have UTI. As per son patient was sitting close to TV with loud sound but she was not able to hear properly and they were worried about hearing loss and brought her to the ER. Seems that her hearing aids batteries are down. But son thinks still her hearing is less than her usual. But patient seems comfortable. Patient hearing okay with slightly louder voices without hearing aids currently. And able to answer okay. Has some weakness going on. Complains of left groin pain. Son thinks lately patient is having some difficulty ambulation and difficulty feeding herself. No fevers. No cough. No runny nose or sore throat. No chest pain or shortness of breath. No nausea. No abdominal pain. Normal bowel and bladder movements. Hemodynamics are okay. Patient was admitted in July 2024 for for UTI and confusion and was treated for pansensitive E. coli. Acute UTI History of pansensitive E. coli UCx w/ e coli, c/w Rocephin 04/04 Questionable hearing loss Currently without hearing aids patient able to hear okay Question of hearing aids not working Will monitor. ENT as OP. Mild cognitive impairment: Monitor for delirium, high risk d/t underlying cognitive impairment, elderly age and hospitalization. will increase melatonin dose and use is tessa to promote night sleep. Depression: On Lexapro Diabetes: Hold metformin. Sliding scale. Will monitor Hyperlipidemia: On statin History of breast cancer: On letrozole. Follow-up with heme-onc History of hypertension Last admission was on amlodipine Seems was stopped by PCP as patient was having occasional lightheadedness and blood pressure was on the lower end of normal Will monitor Urgent continence On Gemtesa MRI scan done for hydrocephalus was okay Left groin pain: seems resolved. DVT prophylaxis: Heparin subcu Disposition: Med/surg. cm assisting w/ dispo. can dc to snf CODE STATUS DNR/DNI pt's dtr Stacy was given phone call 04/05, updated on plan of care, answered all her questions, she voiced understanding. Pts dtr and updated at bedside 04/06. Admission and Anticipated Discharge Date Admission Date: April 03, 2025 Subjective Patient was seen and examined at bedside. Patient was sitting up in chair, on room air, NAD, appears confused but more conversive. Per RN, pt is eating better, slept slightly better last night. CT head was obtained due to increased confusion and family concern, it was neg. likely confusion is hospital induced. Physical Exam Physical Exam: General-Not in acute distress Head- atraumatic Eyes- PERRL. ENT- oropharynx clear Neck- supple, no JVD. Lungs- clear to auscultation no wheezing or crackles Heart- regular rhythm; no murmur, no gallop. Abdomen- normal bowel sounds, soft, nontender, no distension Extremities- no pretibial edema, no erythema seen Neuro- alert, oriented PERRL, no facial palsy; no dysarthria; moves extremities Results & Data Results & Data Vital Signs (Past 12 Hours) Vital Signs Temp Pulse Pulse Resp BP BP Pulse Ox 04/07/25 11:28 36.3 C L 53 L 20 127/74 94 04/07/25 08:17 36.8 C 65 20 137/81 96 04/07/25 06:49 82 04/07/25 04:03 36.6 C 77 20 129/85 95 04/07/25 04:00 79 04/07/25 00:48 36.8 C 71 18 137/78 94 04/07/25 00:00 Pulse Ox O2 Del Method O2 Del Method 04/07/25 11:28 Room Air 04/07/25 08:17 Room Air 04/07/25 06:49 04/07/25 04:03 Room Air 04/07/25 04:00 04/07/25 00:48 Room Air 04/07/25 00:00 94 Room Air
[2025-04-09 12:16] VITALS: BP 145/69; PULSE 53; RESP 16; TEMP 97.7; O2SAT 97
--- NOTE | 2025-04-09 12:46 | Discharge Summary ---
Date of Service April 09, 2025 Admission HPI Per Admitting Provider 89-year-old female with past med history significant for type 2 diabetes, hyperlipidemia, diabetic peripheral neuropathy, hypertension, chronic cerebral ischemia, peripheral vascular disease, diverticulosis, GERD, urge incontinence of urine, CKD stage III, history of basal cell carcinoma, osteoarthritis, sensorineural hearing loss, mild cognitive impairment, ambulatory dysfunction and ambulates with a walker who lives at home with her comes because of decreased hearing and found to have UTI. As per son patient was sitting close to TV with loud sound but she was not able to hear properly and they were worried about hearing loss and brought her to the ER. Seems that her hearing aids batteries are down. But son thinks still her hearing is less than her usual. But patient seems comfortable. Patient hearing okay with slightly louder voices without hearing aids currently.. And able to answer okay. Has some weakness going on. Complains of left groin pain. Son thinks lately patient is having some difficulty ambulation and difficulty feeding herself. No fevers. No cough. No runny nose or sore throat. No chest pain or shortness of breath. No nausea. No abdominal pain. Normal bowel and bladder movements. Hemodynamics are okay. Patient was admitted in July 2024 for for UTI and confusion and was treated for pansensitive E. coli. Past medical history. As mentioned above. Past surgical history. Breast biopsy. Colonoscopy and EGD. EGD with endoscopic ultrasound. Ligation of oviduct. Hammertoe repair. Tonsillectomy. Social history. . Quit smoking 1969. Smoked for 18 years. Alcohol rarely. No drug use. Family history. Father had cancer. Sister had cancer. Mother had diabetes and hypertension. Aunt had cancer. Admission Exam Per Admitting Provider General-Not in acute distress Head- atraumatic Eyes- PERRL. ENT- oropharynx clear Neck- supple, no JVD. Lungs- clear to auscultation no wheezing or crackles Heart- regular rhythm; no murmur, no gallop. Abdomen- normal bowel sounds, soft, nontender, no distension Extremities- no pretibial edema, no erythema seen Neuro- alert, oriented PERRL, no facial palsy; no dysarthria; moves extremities Principal Diagnosis Acute UTI History of pansensitive E. coli Discharge Exam General-Not in acute distress, Ox3 Head- atraumatic Eyes- PERRL. ENT- oropharynx clear Neck- supple, no JVD. Lungs- clear to auscultation no wheezing or crackles Heart- regular rhythm; no murmur, no gallop. Abdomen- normal bowel sounds, soft, nontender, no distension Extremities- no pretibial edema, no erythema seen Neuro- alert, oriented PERRL, no facial palsy; no dysarthria; moves extremities Discharge Data Allergies Allergy/AdvReac Type Severity Reaction Status Date / Time codeine AdvReac Severe Hallucinati Verified 04/03/25 19:22 ons hydrocodone [From Vicodin] AdvReac Severe Hallucinati Verified 04/03/25 19:22 ons oxycodone AdvReac Severe Hallucinati Verified 04/03/25 19:22 ons tramadol AdvReac Intermediate GI upset Verified 04/03/25 19:22 Consultations 04/03/25 21:02 ED Decision to Admit Stat Ordered Studies 04/06/25 14:47 CT head/brain wo con Routine Hospital Course (1) Acute UTI (urinary tract infection): 89 yo F w/ PMH of type 2 diabetes, hyperlipidemia, diabetic peripheral neuropathy, hypertension, chronic cerebral ischemia, peripheral vascular disease, diverticulosis, GERD, urge incontinence of urine, CKD stage III, history of basal cell carcinoma, osteoarthritis, sensorineural hearing loss, mild cognitive impairment, ambulatory dysfunction and ambulates with a walker who lives at home with her comes because of decreased hearing and found to have UTI. As per son patient was sitting close to TV with loud sound but she was not able to hear properly and they were worried about hearing loss and brought her to the ER. Seems that her hearing aids batteries are down. But son thinks still her hearing is less than her usual. But patient seems comfortable. Patient hearing okay with slightly louder voices without hearing aids currently. And able to answer okay. Has some weakness going on. Complains of left groin pain. Son thinks lately patient is having some difficulty ambulation and difficulty feeding herself. No fevers. No cough. No runny nose or sore throat. No chest pain or shortness of breath. No nausea. No abdominal pain. Normal bowel and bladder movements. Hemodynamics are okay. Patient was admitted in July 2024 for for UTI and confusion and was treated for pansens itive E. coli. Acute UTI History of pansensitive E. coli UCx w/ e coli, s/p 5 d Rocephin Questionable hearing loss Currently without hearing aids patient able to hear okay Question of hearing aids not working Will monitor. ENT as OP. Mild cognitive impairment: Monitor for delirium, high risk d/t underlying cognitive impairment, elderly age and hospitalization. will increase melatonin dose and use is tessa to promote night sleep. Depression: On Lexapro Diabetes: Hold metformin. Sliding scale. Will monitor Hyperlipidemia: On statin History of breast cancer: On letrozole. Follow-up with heme-onc History of hypertension Last admission was on amlodipine Seems was stopped by PCP as patient was having occasional lightheadedness and blood pressure was on the lower end of normal Will monitor Urgent continence On Gemtesa MRI scan done for hydrocephalus was okay Left groin pain: seems resolved. DVT prophylaxis: Heparin subcu Disposition: Med/surg. cm assisting w/ dispo. can dc to snf CODE STATUS DNR/DNI Patient's daughter Stacy was updated at bedside. patient is being discharged to SNF with following instructions at the point of discharge: Follow-up with your primary care physician within a week time and likely you will need labs CBC/CMP/magnesium/phosphorus. You completed the course of your antibiotic for UTI. For your hearing issues, recommend you follow-up with ENT as an outpatient, coordinate with your PCP office to set up the referral. Continue with your physical therapy at rehab facility. Take your medications as prescribed. Please make sure that you are able to get your medications today by calling your pharmacy before you leave the hospital so that your treatment continuity is not broken. Home Health Attestation I certify that this patient is under my care and that I, or a physicians horticultural nursery assistant working with me, had a face to-face encounter that meets the home health [id number] encounter requirements with this patient. The encounter with the patient was in whole, or in part, for the following medical condition, which is the primary reason for home health care (list medical condition): I certify that, based on my findings, the following services are medically necessary home health services: My clinical findings support the need for the above services because: Further, I certify that my clinical findings support that this patient is homebound (i.e. absences from home require considerable and taxing effort and are for medical reasons or judaism services or infrequently or of short duration when for other reasons) because: Certification for Home Health Services: Based on the above findings, I certify that this patient is confined to the home and needs intermittent nursing home care, physical therapy and/or speech therapy or continues to need occupational therapy. The patient is under my care, and I have initiated the establishment of the plan of care. This patient will be followed by a physician who will periodically review the plan of care. Total Time Total Time Spent Total Time Spent (In Minutes): 35 Discharge Plan Discharge Items Patient Disposition: Transfer Shelter Fac Reason For Visit: ACUTE UTI, WEAKNESS Discharge Diagnosis: Acute UTI History of pansensitive E. coli Condition on Discharge: Fair Activity: Resume your previous activity Non-emergency contact: Primary Care Provider Call non-emergency contact if: you have any medication questions and your symptoms worsen Follow-up/Referrals: Andreea Alcala DO [Primary Care Provider] - Diet: Carb Consistent or DM2 and Heart Healthy Diet Texture: Easy to Chew Addtl Attending Provider Instructions: Follow-up with your primary care physician within a week time and likely you will need labs CBC/CMP/magnesium/phosphorus. You completed the course of your antibiotic for UTI. For your hearing issues, recommend you follow-up with ENT as an outpatient, coordinate with your PCP office to set up the referral. Continue with your physical therapy at rehab facility. Take your medications as prescribed. Please make sure that you are able to get your medications today by calling your pharmacy before you leave the hospital so that your treatment continuity is not broken. Pending Studies at Discharge: No Stand-Alone Forms: [employer] Smoking Cessation Skilled Items Patient informed of condition?: Yes DNR: Yes Discharge Level of Care: Skilled Communicable Disease: No Discharge Prognosis: Stable Lines: None Urinary Catheter: No Medications and DC Order Prescriptions: Continued (DME) blood sugar diagnostic Strip See Dose Instructions .ROUTE .MEDSUPPLY Qty: 200 3RF Rx Instructions: test twice daily metformin 500 mg tablet 500 mg PO BID Qty: 180 3RF simvastatin 10 mg tablet 10 mg PO HS Qty: 90 3RF escitalopram oxalate 10 mg tablet 10 mg PO HS Qty: 90 3RF (DME) blood-glucose meter [OneTouch UltraMini] kit See Dose Instructions .ROUTE .MEDSUPPLY Qty: 1 0RF Dose Instruction: As directed Rx Instructions: As directed multivitamin [Multiple Vitamins] tablet 1 tab PO DAILY letrozole 2.5 mg tablet 2.5 mg PO QAM ascorbate calcium (vitamin C) 500 mg tablet 500 mg PO DAILY cholecalciferol (vitamin D3) 25 mcg (1,000 unit) capsule 25 mcg PO DAILY Gemtesa 75 mg tablet 75 mg PO DAILY Discharge Orders: Discharge Order (Routine); Ordered 04/09/25 Ordered By: Tosin Almonte Admission Data Admit Date/Time: 04/03/25 23:02 Attending Provider: Tosin Almonte Admit Provider: Miguelito Harris Primary Care Provider: Andreea Alcala Other Providers: Miguelito Harris
[2025-04-09 13:11] LABS: Appearance Urine Clear (Clear); Glucose Urine UA Negative (Negative)
== END 2025-04-09 13:32 | DRG 690 ==
LOC: ED 18:26 → 2N 23:02